=== PATIENT | male | born 1965 | race Caucasian/White ===

== ENCOUNTER 2018-08-23 13:19 | Emergency (ER) | payer MEDICAID ==
--- OUTSIDE RECORDS SUMMARY | 2018-08-23 13:21 | XMS REPORT | Clinical Summary ---
:1965 Author Organization [facility] Address [address] [place] [address] Care Team Providers Name Role Phone Sharpluis Primary Care Provider Unavailable Allergies No Known Allergies Medications Medication Sig Dispensed Refills Start Date End Date Status ALPRAZolam (XANAX) 1 Take 1 mg by 0 Active MG tablet mouth every night as needed for Anxiety. levothyroxine Take 137 mcg by 0 Active (SYNTHROID, mouth Every LEVOTHROID) 137 MCG morning on an tablet empty stomach. atorvastatin (LIPITOR) Take 2 tablets 30 tablet 0 12/16/2017 12/16/2018 Active 40 MG tablet (80 mg total) by mouth daily. lisinopril Take 1 tablet 30 tablet 0 12/16/2017 12/16/2018 Active (PRINIVIL,ZESTRIL) 5 (5 mg total) by MG tablet mouth daily. folic acid (FOLVITE) 1 Take 1 tablet 30 tablet 0 12/16/2017 12/16/2018 Active MG tablet (1 mg total) by mouth daily. aspirin 81 MG EC Take 1 tablet 30 tablet 0 12/16/2017 12/16/2018 Active tablet (81 mg total) by mouth daily. clopidogrel (PLAVIX) Take 1 tablet 30 tablet 0 12/16/2017 12/16/2018 Active 75 mg tablet (75 mg total) by mouth daily. pantoprazole Take 1 tablet 30 tablet 0 12/16/2017 Active (PROTONIX) 40 MG (40 mg total) tablet by mouth daily. nitroglycerin As directed. 90 tablet 0 12/15/2017 12/15/2018 Active (NITROSTAT) 0.4 MG SL tablet thiamine 100 MG tablet Take 1 tablet 30 tablet 0 12/15/2017 12/15/2018 Active (100 mg total) by mouth daily. atorvastatin (LIPITOR) TAKE 1 TABLET 30 tablet 0 03/11/2018 Active 80 MG tablet BY MOUTH EVERY DAY metoprolol (TOPROL-XL) Take 0.5 15 tablet 0 12/16/2017 01/15/2018 25 MG 24 hr tablet tablets (12.5 mg total) by mouth daily for 30 days. Active Problems Problem Noted Date ETOH abuse 12/13/2017 Tobacco abuse 12/13/2017 ST elevation myocardial infarction involving right coronary artery 12/12/2017 Alcoholism /alcohol abuse 12/12/2017 Hypothyroidism 12/12/2017 Chronic anemia 12/12/2017 Anxiety disorder 12/12/2017 Acute pain 12/12/2017 Insomnia 12/12/2017 Cigarette nicotine dependence 12/12/2017 Vitamin deficiency 12/12/2017 Encounters Date Type Specialty Care Team Description 02/26/2018 Refill Cardiology Rod Lerner MD 12/12/2017 - Hospital Encounter Cardiology Odessa Busch ST elevation myocardial infarction involving right coronary artery (HCC) (Primary Dx); 12/15/2017 MD Anastacio Alcoholism /alcohol abuse (HCC); Bacilio Hagen Cigarette nicotine dependence without complication Manuel 12/12/2017 Surgery Odessa Busch L CATH & PCI MD Anastacio after 08/22/2017 Immunizations Name Dates Previously Given Next Due Influenza Three-TIV PF 5+ YR 12/13/2017 Social History Tobacco Use Types Packs/Day Years Used Date Current Every Day Smoker Cigarettes, Cigars 2 38 Smokeless Tobacco: Never Used Tobacco Cessation: Ready to Quit: No Comments: 2 packs per day Alcohol Use Drinks/Week oz/Week Comments Yes 70 Cans of beer 42.0 4-10 cans per day Sex Assigned at Date Recorded Not on file Job Start Date Occupation Industry Not on file Not on file Not on file Travel History Travel Start Travel End No recent travel history available. Last Filed Vital Signs Vital Sign Reading Time Taken Blood Pressure 105/69 12/15/2017 8:14 AM SENIOR ORACLE APPLICATIONS DEVELOPER Pulse 75 12/15/2017 8:14 AM SENIOR ORACLE APPLICATIONS DEVELOPER Temperature 36.9 C (98.4 F) 12/15/2017 8:14 AM SENIOR ORACLE APPLICATIONS DEVELOPER Respiratory Rate 18 12/15/2017 8:14 AM SENIOR ORACLE APPLICATIONS DEVELOPER Oxygen Saturation 99% 12/15/2017 8:14 AM SENIOR ORACLE APPLICATIONS DEVELOPER Inhaled Oxygen Concentration - - Weight 71.4 kg (157 lb 6.4 oz) 12/15/2017 4:55 AM SENIOR ORACLE APPLICATIONS DEVELOPER Height 188 cm (6' 2") 12/12/2017 10:30 AM SENIOR ORACLE APPLICATIONS DEVELOPER Body Mass Index 20.21 12/15/2017 4:55 AM SENIOR ORACLE APPLICATIONS DEVELOPER Plan of Treatment Health Maintenance Due Date Last Done Comments INFLUENZA VACCINE 07/11/2018 12/13/2017 Implants Implanted Type Area Supervisor Color Making Device Shelf Model / Identifier Expiration Serial / Date Lot Synergy Stents-C N/A: [employer]OSTON 06/11/2018 [id number] / Implanted: Qty: 1 on 12/12/2017 by Odessa Busch MD [facility] Coronary SCIENTIFIC / [id number] Procedures Procedure Name Priority Date/Time Associated Comments Diagnosis REPORT OF PROCEDURE - 12/29/2017 1:52 ENDOSCOPY SCAN PM CDT VASCULAR DIAGRAM -SCAN 12/21/2017 3:01 PM CDT RHYTHM STRIP - SCAN 12/16/2017 1:21 PM SENIOR ORACLE APPLICATIONS DEVELOPER VASCULAR DIAGRAM -SCAN 12/16/2017 1:21 PM SENIOR ORACLE APPLICATIONS DEVELOPER ECHOCARDIOGRAM REPORT 12/15/2017 11:50 - SCAN AM SENIOR ORACLE APPLICATIONS DEVELOPER MAGNESIUM Routine 12/15/2017 4:58 Results for this AM SENIOR ORACLE APPLICATIONS DEVELOPER procedure are in the results section. CBC (HEMOGRAM ONLY) Routine 12/15/2017 4:58 Results for this AM SENIOR ORACLE APPLICATIONS DEVELOPER procedure are in the results section. BASIC METABOLIC PANEL Routine 12/15/2017 4:58 Results for this (7) AM SENIOR ORACLE APPLICATIONS DEVELOPER procedure are in the results section. TROPONIN I STAT 12/14/2017 10:27 Results for this PM SENIOR ORACLE APPLICATIONS DEVELOPER procedure are in the results section. 2D ECHO W/ DOPPLER PK 12/14/2017 5:31 Results for this (CW/PW/COLOR) PM SENIOR ORACLE APPLICATIONS DEVELOPER procedure are in the results section. CARDIAC CATH REPORT - 12/14/2017 1:22 SCAN PM SENIOR ORACLE APPLICATIONS DEVELOPER MAGNESIUM Routine 12/14/2017 4:01 Results for this AM SENIOR ORACLE APPLICATIONS DEVELOPER procedure are in the results section. CBC (HEMOGRAM ONLY) Routine 12/14/2017 4:01 Results for this AM SENIOR ORACLE APPLICATIONS DEVELOPER procedure are in the results section. BASIC METABOLIC PANEL Routine 12/14/2017 4:01 Results for this (7) AM SENIOR ORACLE APPLICATIONS DEVELOPER procedure are in the results section. MAGNESIUM Routine 12/13/2017 5:35 Results for this AM SENIOR ORACLE APPLICATIONS DEVELOPER procedure are in the results section. CBC (HEMOGRAM ONLY) Routine 12/13/2017 5:35 Results for this AM SENIOR ORACLE APPLICATIONS DEVELOPER procedure are in the results section. BASIC METABOLIC PANEL Routine 12/13/2017 5:35 Results for this (7) AM SENIOR ORACLE APPLICATIONS DEVELOPER procedure are in the results section. VITAMIN B1 Routine 12/12/2017 4:56 Results for this PM SENIOR ORACLE APPLICATIONS DEVELOPER procedure are in the results section. POCT-ACT Routine 12/12/2017 3:52 Results for this PM SENIOR ORACLE APPLICATIONS DEVELOPER procedure are in the results section. POCT-ACT Routine 12/12/2017 2:45 Results for this PM SENIOR ORACLE APPLICATIONS DEVELOPER procedure are in the results section. POCT-ACT Routine 12/12/2017 1:52 Results for this PM SENIOR ORACLE APPLICATIONS DEVELOPER procedure are in the results section. T4, FREE Routine 12/12/2017 1:30 Results for this PM SENIOR ORACLE APPLICATIONS DEVELOPER procedure are in the results section. TSH/FREE T4 IF Routine 12/12/2017 1:30 Results for this INDICATED PM SENIOR ORACLE APPLICATIONS DEVELOPER procedure are in the results section. CBC W/PLT COUNT & AUTO Routine 12/12/2017 1:27 Results for this DIFFERENTIAL PM SENIOR ORACLE APPLICATIONS DEVELOPER procedure are in the results section. HEMOGLOBIN A1C AP Routine 12/12/2017 1:27 Results for this PM SENIOR ORACLE APPLICATIONS DEVELOPER procedure are in the results section. LIPID PANEL Routine 12/12/2017 1:27 Results for this PM SENIOR ORACLE APPLICATIONS DEVELOPER procedure are in the results section. B-TYPE NATRIURETIC Routine 12/12/2017 1:27 Results for this FACTOR (BNP) PM SENIOR ORACLE APPLICATIONS DEVELOPER procedure are in the results section. CREATINE KINASE (CK), Routine 12/12/2017 1:27 Results for this TOTAL AND MB PM SENIOR ORACLE APPLICATIONS DEVELOPER procedure are in the results section. TROPONIN I Routine 12/12/2017 1:27 Results for this PM SENIOR ORACLE APPLICATIONS DEVELOPER procedure are in the results section. CBC W/PLT COUNT & AUTO Routine 12/12/2017 1:27 Results for this DIFFERENTIAL PM SENIOR ORACLE APPLICATIONS DEVELOPER procedure are in the results section. PHOSPHORUS Routine 12/12/2017 1:27 Results for this PM SENIOR ORACLE APPLICATIONS DEVELOPER procedure are in the results section. MAGNESIUM Routine 12/12/2017 1:27 Results for this PM SENIOR ORACLE APPLICATIONS DEVELOPER procedure are in the results section. COMPREHENSIVE Routine 12/12/2017 1:27 Results for this METABOLIC PANEL PM SENIOR ORACLE APPLICATIONS DEVELOPER procedure are in the results section. POCT-ACT Routine 12/12/2017 11:35 Results for this AM SENIOR ORACLE APPLICATIONS DEVELOPER procedure are in the results section. POCT-ACT Routine 12/12/2017 11:08 Results for this AM SENIOR ORACLE APPLICATIONS DEVELOPER procedure are in the results section. POCT-ACT Routine 12/12/2017 10:54 Results for this AM SENIOR ORACLE APPLICATIONS DEVELOPER procedure are in the results section. L CATH & PCI 12/12/2017 9:50 stemi AM SENIOR ORACLE APPLICATIONS DEVELOPER after 08/22/2017 Results EKG-SCANNED (12/29/2017 1:52 PM CDT) Narrative Performed At VASCULAR DIAGRAM -SCAN (12/21/2017 3:01 PM CDT)Only the most recent of2 resultswithin the time period is included. Narrative Performed At RHYTHM STRIP - SCAN (12/16/2017 1:21 PM SENIOR ORACLE APPLICATIONS DEVELOPER) Narrative Performed At ECHOCARDIOGRAM REPORT - SCAN (12/15/2017 11:50 AM SENIOR ORACLE APPLICATIONS DEVELOPER) Narrative Performed At CBC (Hemogram only) (12/15/2017 4:58 AM SENIOR ORACLE APPLICATIONS DEVELOPER)Only the most recent of3 resultswithin the time period is included. WBC 4.5 3.5 - 10.5 K/L [facility] RBC 4.28 (L) 4.63 - 6.08 M/L [facility] Hemoglobin 12.7 (L) 13.7 - 17.5 GM/DL [facility] Hematocrit 39.2 (L) 40.1 - 51.0 % [facility] MCV 91.6 79.0 - 92.2 fL [facility] MCH 29.7 25.7 - 32.2 pg [facility] MCHC 32.4 32.3 - 36.5 GM/DL [facility] RDW 14.1 11.6 - 14.4 % [facility] Platelets 149 (L) 150 - 450 K/CU MM [facility] MPV 10.2 9.4 - 12.4 fL [facility] nRBC 0 0 - 0 /100 WBC [facility] Specimen Blood Performing Organization Address City/State/Zipcode Phone Number [facility] [address] [place] [address] CENTER Magnesium (12/15/2017 4:58 AM SENIOR ORACLE APPLICATIONS DEVELOPER)Only the most recent of4 resultswithin the time period is included. Magnesium 1.6 1.6 - 2.6 mg/dL [facility] Specimen Blood Performing Organization Address City/[facility]/Zipcode Phone Number [facility] [address] [place] [address] [phone] [place] Basic metabolic panel (12/15/2017 4:58 AM SENIOR ORACLE APPLICATIONS DEVELOPER)Only the most recent of3 resultswithin the time period is included. Sodium 139 136 - 145 meq/L [facility] Potassium 4.1 3.5 - 5.1 meq/L [facility] Chloride 105 98 - 107 meq/L [facility] CO2 25 22 - 29 meq/L [facility] BUN 9 7 - 21 mg/dL [facility] Creatinine 0.75 0.57 - 1.25 mg/dL [facility] Glucose 84 70 - 105 mg/dL [facility] Calcium 9.1 8.4 - 10.2 mg/dL [facility] EGFR 109Comment: ESTIMATED GFR IS mL/min/1.73 sq m [facility] NOT ACCURATE CREATININE [facility] CENTER CLEARANCE IN PREDICTING GLOMERULAR FILTRATION RATE. ESTIMATED GFR IS NOT APPLICABLE FOR DIALYSIS PATIENTS. Specimen Blood Performing Organization Address City/[facility]/Zipcode Phone Number [address] [address] [place] Troponin I (12/14/2017 10:27 PM SENIOR ORACLE APPLICATIONS DEVELOPER)Only the most recent of2 resultswithin the time period is included. Troponin I 0.99 (HH) 0.00 - 0.03 ng/mL [facility] Specimen Blood Narrative Performed At [facility] Troponin I (TnI) levels must be interpreted in the context of the presenting symptoms and the clinical findings. Elevated TnI levels indicate myocardial damage, but are not specific for ischemic heart disease. Elevated TnI levels are seen in patients with other cardiac conditions (including myocarditis and congestive heart failure), and slight TnI elevations occur in patients with other conditions, including sepsis, renal failure, acidosis, acute neurological disease, and persistent tachyarrhythmia. Performing Organization Address City/State/Zipcode Phone Number [facility] [address] [place] [address] [phone] CENTER Transthoracic 2D echo w/ doppler (cw/pw/color) (12/14/2017 5:31 PM SENIOR ORACLE APPLICATIONS DEVELOPER) Ejection Fraction [facility] MK[facility]ON CPA Narrative Performed At Transthoracic Echocardiography Report (TTE) [facility] Demographics Patient Name JOSEPH WEAVER Date of Study 12/14/2017 [id number] GenderMale Visit Number [id number] Unknown [id number] Room Number 1135 Number Date of Birth1965Referring Physician Odessa Busch MD Age52 year(s)Oil Burner Repairer Brenda Regicameron [facility] AnalystAriadna InterpretingGorge Hernadez Physician Procedure Type of Study TTE procedure:2DECHO W DOPPLER(CW/PW/COLOR) (PK) Indications:Acute Chest Pain/ Suspected CAD. Clinical History CAD Hypothyroidism HGB 12.2 HCT 37.6 % Height: 74 inches Weight: 74.84 kg (165 lbs) BSA: 2 m^2 BMI: 21.18 kg/m^2 HR: 74 bpm BP: 122/82 mmHg Summary 1. The following segment(s) appear moderately hypokinetic: base and mid inferoseptum, base, and mid inferior . LVEF by Maria's method of disk assessment is mildly reduced (45-49%) 2. RV chamber size is normal . Global RV systolic function is low normal . 3. Grade 1 diastolic dysfunction (impaired relaxation and low-normal LA pressure). Previous Study No prior exam available for comparison. Signature Findings Left Ventricle The LV endocardium is adequately visualized. Th e left ventricle is chamber size (by vol index) is normal (male - LVED vol - 34-74ml/m2). Mi ld concentric LV hypertrophy. Th e following segment(s) appear moderately hy pokinetic: base and mid inferoseptum, base, and mi d inferior . Gl obal LV systolic function mildly reduced . LV EF by Maria's method of disk assessment is mi ldly reduced (45-49%) . Gr mike 1 diastolic dysfunction (impaired relaxation an d low-normal LA pressure). Left AtriumLA size is normal (16-34 ml/m2) . Right VentricleRV chamber size is normal . Gl obal RV systolic function is low normal . Right Atrium RA size is normal. Aortic Valve Normal AoV structure and function. Mitral Valve Mild MV leaflet thickening. Tr raul mitral regurgitation. Tricuspid ValveNormal TV structure and function. Pulmonic Valve Normal PV structure and function. AortaAortic root size (SInus of Valsalva diameter) is no rmal . PericardiumNo pericardial effusion is visualized. IVC/SVC/PA/PV/PleuralThe estimated RA pressure by IVC dynamics 0-5mmHg . Chambers/Structures Left Atrium LA Volume: 37.4 mlLA Area: 12.43 cm^2 LA Vol. Index: 19 ml/m^2 Left Ventricle LVIDd: 4.18 cm LVIDs: 3.42 cm LV Septum Diastolic: 1.01 cm LV PW Diastolic: 1.01 cmLV FS: 18.2 % LVEDV Maria's:80.34 ml LVESV Maria's:51.29 mlLVEDVI: 40 ml/m^2 LVEF Maria's: 49 %L VESVI: 26 ml/m^2 LVOT Diameter: 2.31 cm Right Atrium RA Vol. (Sngl Plane): 34.42 ml Right Ventricle TAPSE: 1.5 cm Aorta Ao Root S of Albina.: 3.12 cmAscending Aorta: 3.53 cm Doppler/Quantitative Measurements Mitral Valve MV Peak E-Wave: 0.42 m/s MV Peak A-Wave: 0.56 m/s E/A Ratio: 0.75 Peak Gradient: 0.69 mmHg Deceleration Time: 270.3 msec MV Nima. Peak: LVOT Peak Velocity: 0.5 m/sPeak Gradient: 0.98 mmHg Mean Velocity: 0.33 m/s Mean Gradient: 0.53 mmHg LVOT Diameter: 2.31 cmLVOT VTI: 9.08 cm LVOT Area: 4.19 cm^2LVOT SV:38.03 ml LVOT CO: 2.81 l/min LVOT CI: 1.4 l/min/m^2 RVOT RVOT VTI (PW): 9.92 cm Procedure Note Interface, External Ris In - 12/15/2017 11:13 AM SENIOR ORACLE APPLICATIONS DEVELOPER Transthoracic Echocardiography Report (TTE) Demographics Patient Name JOSEPH WEAVER Date of Study 12/14/2017 Gender Male Visit Number [id number] Race Unknown Room Number 1135 Number Date of 1965 Referring Physician Odessa Busch MD Age 52 year(s) Oil Burner Repairer Brenda Peters CS Joint Sealer Negar Interpreting Gorge Hernadez Physician Procedure Type of Study TTE procedure:2DECHO W DOPPLER(CW/PW/COLOR) (PK) Indications:Acute Chest Pain/ Suspected CAD. Clinical History CAD Hypothyroidism HGB 12.2 HCT 37.6 % Height: 74 inches Weight: 74.84 kg (165 lbs) BSA: 2 m^2 BMI: 21.18 kg/m^2 HR: 74 bpm BP: 122/82 mmHg Summary 1. The following segment(s) appear moderately hypokinetic: base and mid inferoseptum, base, and mid inferior . LVEF by Maria's method of disk assessment is mildly reduced (45-49%) 2. RV chamber size is normal . Global RV systolic function is low normal . 3. Grade 1 diastolic dysfunction (impaired relaxation and low-normal LA pressure). Previous Study No prior exam available for comparison. Signature Findings Left Ventricle The LV endocardium is adequately visualized. The left ventricle is chamber size (by vol index) is normal (male - LVED vol - 34-74ml/m2). Mild concentric LV hypertrophy. The following segment(s) appear moderately hypokinetic: base and mid inferoseptum, base, and mid inferior . Global LV systolic function mildly reduced . LVEF by Maria's method of disk assessment is mildly reduced (45-49%) . Grade 1 diastolic dysfunction (impaired relaxation and low-normal LA pressure). Left Atrium LA size is normal (16-34 ml/m2) . Right Ventricle RV chamber size is normal . Global RV systolic function is low normal . Right Atrium RA size is normal. Aortic Valve Normal AoV structure and function. Mitral Valve Mild MV leaflet thickening. Trace mitral regurgitation. Tricuspid Valve Normal TV structure and function. Pulmonic Valve Normal PV structure and function. Aorta Aortic root size (SInus of Valsalva diameter) is normal . Pericardium No pericardial effusion is visualized. IVC/SVC/PA/PV/Pleural The estimated RA pressure by IVC dynamics 0-5mmHg . Chambers/Structures Left Atrium LA Volume: 37.4 ml LA Area: 12.43 cm^2 LA Vol. Index: 19 ml/m^2 Left Ventricle LVIDd: 4.18 cm LVIDs: 3.42 cm LV Septum Diastolic: 1.01 cm LV PW Diastolic: 1.01 cm LV FS: 18.2 % LVEDV Maria's:80.34 ml LVESV Maria's:51.29 ml LVEDVI: 40 ml/m^2 LVEF Maria's: 49 % LVESVI: 26 ml/m^2 LVOT Diameter: 2.31 cm Right Atrium RA Vol. (Sngl Plane): 34.42 ml Right Ventricle TAPSE: 1.5 cm Aorta Ao Root S of Albina.: 3.12 cm Ascending Aorta: 3.53 cm Doppler/Quantitative Measurements Mitral Valve MV Peak E-Wave: 0.42 m/s MV Peak A-Wave: 0.56 m/s E/A Ratio: 0.75 Peak Gradient: 0.69 mmHg Deceleration Time: 270.3 msec MV Nima. Peak: LVOT Peak Velocity: 0.5 m/s Peak Gradient: 0.98 mmHg Mean Velocity: 0.33 m/s Mean Gradient: 0.53 mmHg LVOT Diameter: 2.31 cm LVOT VTI: 9.08 cm LVOT Area: 4.19 cm^2 LVOT SV:38.03 ml LVOT CO: 2.81 l/min LVOT CI: 1.4 l/min/m^2 RVOT RVOT VTI (PW): 9.92 cm Performing Organization Address [facility] Phone Number [facility] C[facility] CARDIAC CATH REPORT - SCAN (12/14/2017 1:22 PM SENIOR ORACLE APPLICATIONS DEVELOPER) Narrative Performed At Vitamin B1 (12/12/2017 4:56 PM SENIOR ORACLE APPLICATIONS DEVELOPER) Vitamin B1,LCMSMS 19 8 - 30 nmol/L [employer] [facility] Comment: INCORPORATED Vitamin supplementation within 24 hours prior to blood draw may affect the accuracy of results. This test was developed and its analytical performance characteristics have been determined by [employer]. It has not been cleared or approved by FDA. This assay has been validated pursuant to the CLIA regulations and is used for clinical purposes. Specimen Blood - Line, Venous Narrative Performed At Performing Lab [employer] [facility] *SPL [employer] [facility], [address] [place] [address] Ameena Aparicio MD, PhD Performing Organization Address City/[facility] Phone Number [facility] [place], [place] [address] INCORPORATED [id number] [facility] POC ACTIVATED CLOTTING TIME (12/12/2017 3:52 PM SENIOR ORACLE APPLICATIONS DEVELOPER)Only the most recent of6 resultswithin the time period is included. Activated Clotting Time 125Comment: TESTED AT [facility] [address] [facility] [address] Specimen Blood Performing Organization Address City/State/Zipcode Phone Number [address] [address] [phone] CENTER TSH/T4 if indicated (12/12/2017 1:30 PM SENIOR ORACLE APPLICATIONS DEVELOPER) TSH 5.53 (H) 0.35 - 4.94 uIU/mL [facility] Specimen Blood Performing Organization Address City/[facility]/Zipcode Phone Number [address] [address] [place] T4, free (12/12/2017 1:30 PM SENIOR ORACLE APPLICATIONS DEVELOPER) Free T4 0.94 0.70 - 1.48 ng/dL [facility] Specimen Blood Performing Organization Address City/[facility] Phone Number [address] [address] [place] CBC with platelet count + automated diff (12/12/2017 1:27 PM SENIOR ORACLE APPLICATIONS DEVELOPER) WBC 7.5 3.5 - 10.5 K/L [facility] RBC 4.27 (L) 4.63 - 6.08 M/L [facility] Hemoglobin 12.7 (L) 13.7 - 17.5 GM/DL [facility] Hematocrit 38.3 (L) 40.1 - 51.0 % [facility] MCV 89.7 79.0 - 92.2 fL [facility] MCH 29.7 25.7 - 32.2 pg [facility] MCHC 33.2 32.3 - 36.5 GM/DL [facility] RDW 13.9 11.6 - 14.4 % [facility] Platelets 172 150 - 450 K/CU MM [facility] MPV 9.5 9.4 - 12.4 fL [facility] nRBC 0 0 - 0 /100 WBC [facility] % Neutros 81 % [facility] % Lymphs 10 % [facility] % Monos 8 % [facility] % Eos 0 % [facility] % Baso 1 % [facility] # Neutros 6.06 (H) 1.78 - 5.38 K/L [facility] # Lymphs 0.78 (L) 1.32 - 3.57 K/L [facility] # Monos 0.60 0.30 - 0.82 K/L [facility] # Eos 0.00 (L) 0.04 - 0.54 K/L [facility] # Baso 0.04 0.01 - 0.08 K/L [facility] Immature Granulocytes-Relative 0 0 - 1 % [facility] Specimen Blood Performing Organization Address City/[facility]/Zipcode Phone Number [address] [address] CENTER Phosphorus (12/12/2017 1:27 PM SENIOR ORACLE APPLICATIONS DEVELOPER) Phosphorus 3.4 2.3 - 4.7 mg/dL [facility] Specimen Blood Performing Organization Address City/State/Zipcode Phone Number [address] [address] [phone] [place] B-type Natriuretic Factor (BNP) (12/12/2017 1:27 PM SENIOR ORACLE APPLICATIONS DEVELOPER) BNP 25 0 - 100 pg/mL [facility] Specimen Blood Performing Organization Address City/[facility]/Zipcode Phone Number [address] [address] [phone] CENTER Hemoglobin A1c (12/12/2017 1:27 PM SENIOR ORACLE APPLICATIONS DEVELOPER) Hemoglobin A1C 5.3 4.3 - 6.1 % [facility] Specimen Blood Performing Organization Address City/[facility]/Zipcode Phone Number [address] [address] [place] Creatine Kinase (CK), Total and MB (12/12/2017 1:27 PM SENIOR ORACLE APPLICATIONS DEVELOPER) Total CK 336 (H) 29 - 200 U/L [facility] CK-MB 21.4 (H) 0.0 - 6.6 ng/mL [facility] MB Relative Index 6.4 % [facility] Specimen Blood Narrative Performed At CK-MB Reference Range: [facility] <6.7Normal 6.7-10.0Borderline >10.0 Abnormal Performing Organization Address [facility] Phone Number [address] [address] [place] Lipid panel (12/12/2017 1:27 PM SENIOR [employer]LE APPLICATIONS DEVELOPER) Triglycerides 29 mg/dL [facility] Cholesterol 148 mg/dL [facility] HDL 86 mg/dL [facility] LDL Calculated 56 mg/dL [facility] Specimen Blood Narrative Performed At [facility] Triglyceride Reference Range: Low Risk <150 [id number] High Risk 200-499 Very High Risk>=500 Cholesterol Reference Range: Low Risk <200 Aocpcckxjv448-286 High Risk>240 HDL Cholesterol Reference Range: Low Risk >=60 High Risk <40 LDL Cholesterol Reference Range: Optimal<100 Near Qcpenef645-988 Iiwymfwdem698-536 Wbdm721-735 Very High >=190 Performing Organization Address [facility] Phone Number [address] [address] [place] Comprehensive metabolic panel (12/12/2017 1:27 PM SENIOR ORACLE APPLICATIONS DEVELOPER) Protein, Total 6.5 6.0 - 8.3 gm/dL [facility] Albumin 3.8 3.5 - 5.0 g/dL [facility] Alkaline Phosphatase 72 40 - 150 U/L [facility] Total Bilirubin 1.1 0.2 - 1.2 mg/dL [facility] Sodium 137 136 - 145 meq/L [facility] Potassium 4.5 3.5 - 5.1 meq/L [facility] Chloride 103 98 - 107 meq/L [facility] CO2 23 22 - 29 meq/L [facility] BUN 12 7 - 21 mg/dL [facility] Creatinine 0.78 0.57 - 1.25 mg/dL [facility] Glucose 79 70 - 105 mg/dL [facility] Calcium 8.5 8.4 - 10.2 mg/dL [facility] AST 55 (H) 5 - 34 U/L [facility] ALT 18 6 - 55 U/L [facility] EGFR 104Comment: ESTIMATED mL/min/1.73 sq m [facility] GFR IS NOT ACCURATE [facility] CREATININE CLEARANCE IN PREDICTING GLOMERULAR FILTRATION RATE. ESTIMATED GFR IS NOT APPLICABLE FOR DIALYSIS PATIENTS. Specimen Blood Performing Organization Address City/State/Zipcode Phone Number [facility] [address] [place] [address] [phone] CENTER after 08/22/2017 Insurance Payer Benefit Plan / Group Subscriber ID Type Phone Address [place] MED[place]ID [place] xxxxxxxxx
--- OUTSIDE RECORDS SUMMARY | 2018-08-23 13:22 | XMS REPORT ---
:1965 [facility] Address [address] [place] [address] Care Team Providers Name Role Phone GERI LAWTON Unavailable Unavailable Problems This patient has no known problems. Allergies, Adverse Reactions, Alerts This patient has no known allergies or adverse reactions. Medications This patient has no known medications. Results Test Description Test Time Test Comments Text Results Atomic Results Result Comments MAGNESIUM 2017-12-15 06:32:00 Test Item Value Reference Range Comments MAGNESIUM (BEAKER) (test btwk=220) 1.6 mg/dL 1.6-2.6 BASIC METABOLIC [id number] 06:32:00 Test Item Value Reference Range Comments SODIUM (BEAKER) (test 139 meq/L 136-145 lnhj=477) POTASSIUM (BEAKER) (test 4.1 meq/L 3.5-5.1 rmfh=319) CHLORIDE (BEAKER) (test 105 meq/L 98-107 ggeb=681) CO2 (BEAKER) (test 25 meq/L 22-29 euqd=215) BLOOD UREA NITROGEN 9 mg/dL 7-21 (BEAKER) (test pdwc=205) CREATININE (BEAKER) (test 0.75 mg/dL 0.57-1.25 sdku=918) GLUCOSE RANDOM (BEAKER) 84 mg/dL 70-105 (test bhgu=140) CALCIUM (BEAKER) (test 9.1 mg/dL 8.4-10.2 ogzf=376) EGFR (BEAKER) (test 109 mL/min/1.73 sq m ESTIMATED GFR IS NOT gtra=1542) ACCURATE CREATININE CLEARANCE IN PREDICTING GLOMERULAR FILTRATION RATE. ESTIMATED GFR IS NOT APPLICABLE FOR DIALYSIS PATIENTS. CBC (HEMOGRAM ONLY)2017-12-15 06:08:00 Test Item Value Reference Range Comments WHITE BLOOD CELL COUNT (BEAKER) (test cffp=643) 4.5 K/ L 3.5-10.5 RED BLOOD CELL COUNT (BEAKER) (test inra=690) 4.28 M/ L 4.63-6.08 HEMOGLOBIN (BEAKER) (test olof=331) 12.7 GM/DL 13.7-17.5 HEMATOCRIT (BEAKER) (test tlfb=733) 39.2 % 40.1-51.0 MEAN CORPUSCULAR VOLUME (BEAKER) (test orma=475) 91.6 fL 79.0-92.2 MEAN CORPUSCULAR HEMOGLOBIN (BEAKER) (test 29.7 pg 25.7-32.2 qhmm=573) MEAN CORPUSCULAR HEMOGLOBIN CONC (BEAKER) (test 32.4 GM/DL 32.3-36.5 kkbi=528) RED CELL DISTRIBUTION WIDTH (BEAKER) (test 14.1 % 11.6-14.4 ljvw=843) PLATELET COUNT (BEAKER) (test lnfc=896) 149 K/CU MM 150-450 MEAN PLATELET VOLUME (BEAKER) (test twds=609) 10.2 fL 9.4-12.4 NUCLEATED RED BLOOD CELLS (BEAKER) (test 0 /100 WBC 0-0 pfkb=633) TROPONIN [id number] 23:05:00 Test Item Value Reference Range Comments TROPONIN I (BEAKER) (test ppdw=634) 0.99 ng/mL 0.00-0.03 Troponin I (TnI) levels must be interpreted [...] failure, acidosis, acute neurological disease, and persistent tachyarrhythmia.[id number] 05:14:00 Test Item Value Reference Range Comments MAGNESIUM (BEAKER) (test zdnz=902) 1.7 mg/dL 1.6-2.6 BASIC METABOLIC [id number] 05:14:00 Test Item Value Reference Range Comments SODIUM (BEAKER) (test 137 meq/L 136-145 ojui=484) POTASSIUM (BEAKER) (test 4.0 meq/L 3.5-5.1 tplr=321) CHLORIDE (BEAKER) (test 104 meq/L 98-107 kfgr=117) CO2 (BEAKER) (test 26 meq/L 22-29 rrjs=363) BLOOD UREA NITROGEN 7 mg/dL 7-21 (BEAKER) (test rgjj=926) CREATININE (BEAKER) (test 0.86 mg/dL 0.57-1.25 cxjj=083) GLUCOSE RANDOM (BEAKER) 84 mg/dL 70-105 (test jptk=785) CALCIUM (BEAKER) (test 9.0 mg/dL 8.4-10.2 wkdp=352) EGFR (BEAKER) (test 93 mL/min/1.73 sq m ESTIMATED GFR IS NOT qyvp=0496) ACCURATE CREATININE CLEARANCE IN PREDICTING GLOMERULAR FILTRATION RATE. ESTIMATED GFR IS NOT APPLICABLE FOR DIALYSIS PATIENTS. CBC (HEMOGRAM ONLY)2017-12-14 04:38:00 Test Item Value Reference Range Comments WHITE BLOOD CELL COUNT (BEAKER) (test clww=797) 3.7 K/ L 3.5-10.5 RED BLOOD CELL COUNT (BEAKER) (test qows=544) 4.13 M/ L 4.63-6.08 HEMOGLOBIN (BEAKER) (test hmnn=621) 12.2 GM/DL 13.7-17.5 HEMATOCRIT (BEAKER) (test plik=628) 37.6 % 40.1-51.0 MEAN CORPUSCULAR VOLUME (BEAKER) (test komz=287) 91.0 fL 79.0-92.2 MEAN CORPUSCULAR HEMOGLOBIN (BEAKER) (test 29.5 pg 25.7-32.2 ztjv=014) MEAN CORPUSCULAR HEMOGLOBIN CONC (BEAKER) (test 32.4 GM/DL 32.3-36.5 nojs=060) RED CELL DISTRIBUTION WIDTH (BEAKER) (test 13.9 % 11.6-14.4 uiin=898) PLATELET COUNT (BEAKER) (test stdd=347) 131 K/CU MM 150-450 MEAN PLATELET VOLUME (BEAKER) (test vbvg=083) 10.1 fL 9.4-12.4 NUCLEATED RED BLOOD CELLS (BEAKER) (test 0 /100 WBC 0-0 sdnx=603) [id number] 09:35:00 Test Item Value Reference Range Comments ACTIVATED CLOTTING TIME [address] [facility] [address] (BEAKER) (test mtfe=314) [place] [address] [id number] 09:35:00 Test Item Value Reference Range Comments ACTIVATED CLOTTING TIME 246 sec TESTED AT [place] [id number] [address] (BEAKER) (test hunw=288) [place] [address] [id number] 08:47:00 Test Item Value Reference Range Comments ACTIVATED CLOTTING TIME 114 sec TESTED AT [place] [address] [address] (BEAKER) (test tamk=832) [place] [address] [id number] 06:45:00 Test Item Value Reference Range Comments MAGNESIUM (BEAKER) (test bhww=484) 1.9 mg/dL 1.6-2.6 BASIC METABOLIC [id number] 06:45:00 Test Item Value Reference Range Comments SODIUM (BEAKER) (test 139 meq/L 136-145 whlp=524) POTASSIUM (BEAKER) (test 3.9 meq/L 3.5-5.1 uqiw=497) CHLORIDE (BEAKER) (test 105 meq/L 98-107 riaz=834) CO2 (BEAKER) (test 25 meq/L 22-29 zygv=573) BLOOD UREA NITROGEN 11 mg/dL 7-21 (BEAKER) (test wqxk=765) CREATININE (BEAKER) (test 0.77 mg/dL 0.57-1.25 yaow=916) GLUCOSE RANDOM (BEAKER) 84 mg/dL 70-105 (test wihi=986) CALCIUM (BEAKER) (test 8.4 mg/dL 8.4-10.2 swzm=072) EGFR (BEAKER) (test 105 mL/min/1.73 sq m ESTIMATED GFR IS NOT vwub=1686) ACCURATE CREATININE CLEARANCE IN PREDICTING GLOMERULAR FILTRATION RATE. ESTIMATED GFR IS NOT APPLICABLE FOR DIALYSIS PATIENTS. CBC (HEMOGRAM ONLY)2017-12-13 05:55:00 Test Item Value Reference Range Comments WHITE BLOOD CELL COUNT (BEAKER) (test ldqb=908) 4.4 K/ L 3.5-10.5 RED BLOOD CELL COUNT (BEAKER) (test esnk=875) 4.10 M/ L 4.63-6.08 HEMOGLOBIN (BEAKER) (test uqee=966) 12.2 GM/DL 13.7-17.5 HEMATOCRIT (BEAKER) (test rflh=587) 37.4 % 40.1-51.0 MEAN CORPUSCULAR VOLUME (BEAKER) (test iptd=065) 91.2 fL 79.0-92.2 MEAN CORPUSCULAR HEMOGLOBIN (BEAKER) (test 29.8 pg 25.7-32.2 xdsz=371) MEAN CORPUSCULAR HEMOGLOBIN CONC (BEAKER) (test 32.6 GM/DL 32.3-36.5 yyju=620) RED CELL DISTRIBUTION WIDTH (BEAKER) (test 14.0 % 11.6-14.4 skdw=521) PLATELET COUNT (BEAKER) (test abbx=405) 128 K/CU MM 150-450 MEAN PLATELET VOLUME (BEAKER) (test mfkm=471) 9.5 fL 9.4-12.4 NUCLEATED RED BLOOD CELLS (BEAKER) (test 0 /100 WBC 0-0 dzaj=393) HEMOGLOBIN [id number] 23:29:00 Test Item Value Reference Range Comments HEMOGLOBIN A1C (BEAKER) (test emwt=126) 5.3 % 4.3-6.1 [id number] 15:58:00 Test Item Value Reference Range Comments ACTIVATED CLOTTING TIME 125 sec TESTED AT [address] ([facility]) (test uatj=374) [place] [id number] T4, [id number] 14:56:00 Test Item Value Reference Range Comments FREE T4 (BEAKER) (test ofez=100) 0.94 ng/dL 0.70-1.48 [id number] 14:50:00 Test Item Value Reference Range Comments ACTIVATED CLOTTING TIME 136 sec TESTED AT [place] [address] [address] (BEAKER) (test dogf=751) [place] [address] [id number] 14:25:00 Test Item Value Reference Range Comments ACTIVATED CLOTTING TIME 164 sec TESTED AT [address] ([facility]) (test ylep=765) [place] [id number] TSH/FREE T4 IF [id number] 14:25:00 Test Item Value Reference Range Comments THYROID STIMULATING HORMONE (BEAKER) (test 5.53 uIU/mL 0.35-4.94 rvyx=354) TROPONIN [id number] 14:09:00 Test Item Value Reference Range Comments TROPONIN I (BEAKER) (test tkms=917) 32.04 ng/mL 0.00-0.03 Troponin I (TnI) levels must be interpreted [...] failure, acidosis, acute neurological disease, and persistent tachyarrhythmia.CBC W/PLT COUNT & AUTO [id number] 14:07:00 Test Item Value Reference Range Comments WHITE BLOOD CELL COUNT (BEAKER) (test gucx=172) 7.5 K/ L 3.5-10.5 RED BLOOD CELL COUNT (BEAKER) (test wrph=353) 4.27 M/ L 4.63-6.08 HEMOGLOBIN (BEAKER) (test qgey=983) 12.7 GM/DL 13.7-17.5 HEMATOCRIT (BEAKER) (test znbd=352) 38.3 % 40.1-51.0 MEAN CORPUSCULAR VOLUME (BEAKER) (test zfvx=498) 89.7 fL 79.0-92.2 MEAN CORPUSCULAR HEMOGLOBIN (BEAKER) (test 29.7 pg 25.7-32.2 ofyr=044) MEAN CORPUSCULAR HEMOGLOBIN CONC (BEAKER) (test 33.2 GM/DL 32.3-36.5 lvvc=289) RED CELL DISTRIBUTION WIDTH (BEAKER) (test 13.9 % 11.6-14.4 xdgn=828) PLATELET COUNT (BEAKER) (test rhld=554) 172 K/CU MM 150-450 MEAN PLATELET VOLUME (BEAKER) (test sfan=936) 9.5 fL 9.4-12.4 NUCLEATED RED BLOOD CELLS (BEAKER) (test 0 /100 WBC 0-0 lpzb=134) NEUTROPHILS RELATIVE PERCENT (BEAKER) (test 81 % mmfa=390) LYMPHOCYTES RELATIVE PERCENT (BEAKER) (test 10 % kxbf=844) MONOCYTES RELATIVE PERCENT (BEAKER) (test 8 % qqop=236) EOSINOPHILS RELATIVE PERCENT (BEAKER) (test 0 % aehg=215) BASOPHILS RELATIVE PERCENT (BEAKER) (test 1 % gjdk=797) NEUTROPHILS ABSOLUTE COUNT (BEAKER) (test 6.06 K/ L 1.78-5.38 ejly=074) LYMPHOCYTES ABSOLUTE COUNT (BEAKER) (test 0.78 K/ L 1.32-3.57 cneq=142) MONOCYTES ABSOLUTE COUNT (BEAKER) (test 0.60 K/ L 0.30-0.82 qiuk=011) EOSINOPHILS ABSOLUTE COUNT (BEAKER) (test 0.00 K/ L 0.04-0.54 nngw=299) BASOPHILS ABSOLUTE COUNT (BEAKER) (test 0.04 K/ L 0.01-0.08 wurm=480) IMMATURE GRANULOCYTES-RELATIVE PERCENT (BEAKER) 0 % 0-1 (test uhxf=2407) CREATINE KINASE (CK), TOTAL AND [id number] 14:06:00 Test Item Value Reference Range Comments CREATINE KINASE TOTAL (BEAKER) (test yxyq=033) 336 U/L 29-200 CREATINE KINASE-MB (BEAKER) (test wwrg=412) 21.4 ng/mL 0.0-6.6 CREATINE KINASE-MB INDEX (BEAKER) (test vhaa=930) 6.4 % CK-MB Reference Range:<6.7 Normal6.7-10.0 Borderline>10.0 AbnormalB-TYPE NATRIURETIC FACTOR (BNP)2017-12-12 14:05:00 Test Item Value Reference Range Comments B-TYPE NATRIURETIC PEPTIDE (BEAKER) (test oovw=536) 25 pg/mL 0-100 [id number] 13:59:00 Test Item Value Reference Range Comments PHOSPHORUS (BEAKER) (test rtno=479) 3.4 mg/dL 2.3-4.7 [id number] 13:59:00 Test Item Value Reference Range Comments MAGNESIUM (BEAKER) (test xywr=943) 1.9 mg/dL 1.6-2.6 COMPREHENSIVE METABOLIC [id number] 13:59:00 Test Item Value Reference Range Comments TOTAL PROTEIN (BEAKER) 6.5 gm/dL 6.0-8.3 (test cgpr=127) ALBUMIN (BEAKER) (test 3.8 g/dL 3.5-5.0 fueg=3099) ALKALINE PHOSPHATASE 72 U/L 40-150 (BEAKER) (test nfef=372) BILIRUBIN TOTAL (BEAKER) 1.1 mg/dL 0.2-1.2 (test yorq=448) SODIUM (BEAKER) (test 137 meq/L 136-145 ldad=649) POTASSIUM (BEAKER) (test 4.5 meq/L 3.5-5.1 ncue=149) CHLORIDE (BEAKER) (test 103 meq/L 98-107 iqvv=773) CO2 (BEAKER) (test 23 meq/L 22-29 zlkt=367) BLOOD UREA NITROGEN 12 mg/dL 7-21 (BEAKER) (test suvb=568) CREATININE (BEAKER) (test 0.78 mg/dL 0.57-1.25 xcai=107) GLUCOSE RANDOM (BEAKER) 79 mg/dL 70-105 (test rifj=593) CALCIUM (BEAKER) (test 8.5 mg/dL 8.4-10.2 cdzp=004) AST (SGOT) (BEAKER) (test 55 U/L 5-34 pffv=619) ALT (SGPT) (BEAKER) (test 18 U/L 6-55 qgjk=051) EGFR (BEAKER) (test 104 mL/min/1.73 sq ESTIMATED GFR IS NOT efyp=1570) m ACCURATE CREATININE CLEARANCE IN PREDICTING GLOMERULAR FILTRATION RATE. ESTIMATED GFR IS NOT APPLICABLE FOR DIALYSIS PATIENTS. LIPID [id number] 13:59:00 Test Item Value Reference Range Comments TRIGLYCERIDES (BEAKER) (test sdgt=933) 29 mg/dL CHOLESTEROL (BEAKER) (test eheh=823) 148 mg/dL HDL CHOLESTEROL (BEAKER) (test yzcn=627) 86 mg/dL LDL CHOLESTEROL CALCULATED (BEAKER) (test 56 mg/dL hwrk=388) Triglyceride Reference Range: Low Risk <150 Borderline 150- 199 High Risk 200-499 Very High Risk >=500Cholesterol Reference Range: Low Risk <200 Borderline 200-239 High Risk > 240HDL Cholesterol Reference Range: Low Risk >=60 High Risk <40LDL Cholesterol Reference Range: Optimal <100 Near Optimal 100-129 Borderline 130-159 High 160-189 Very High >=190
[2018-08-23 14:26] LABS: Urine Glucose NEGATIVE (NEG); Urine Specific Gravity <1.005 (1.005-1.030)
[2018-08-23 14:27] LABS: Urine Blood NEGATIVE (NEG); Urine Protein NEGATIVE (NEG)
[2018-08-23] MEDS ORDERED: TETANUS & DIPHTHERIA TOX,ADULT 0.5 ML VIAL ONE (14:42)
--- NOTE | 2018-08-23 14:45 | RAD REPORT ---
EXAM DESCRIPTION: RAD - Chest Single View - 08/23/2018 2:30 pm CLINICAL HISTORY: CHEST PAIN Chest pain. COMPARISON: Chest Single View dated 12/12/2017; CHEST SINGLE VIEW dated 07/22/2015; CHEST PA AND LAT 2 VIEW dated 12/13/2010 FINDINGS: Portable technique limits examination quality. The lungs are grossly clear. The heart is normal in size. No displaced fractures. IMPRESSION: No acute intrathoracic process suspected.
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
--- NOTE | 2018-08-23 14:48 | EDPHYS ---
Physician Documentation [facility] Name: Jewel Cespedes Age: 52 yrs Sex: Male : 1965 Arrival Date: 08/23/2018 Time: 13:25 Bed 30 Private MD: ED Physician Rodolfo Haynes HPI: 08/23 14:12 This 52 yrs old Male presents to ER via EMS with complaints of Head gia Injury-Adult. 14:12 The patient or guardian reports abrasion, injury, pain, swelling, tenderness. The gia complaints affect the left cheek. Context of injury: The problem was sustained on a street or driveway. Onset: The symptoms/episode began/occurred just prior to arrival. Associated signs and symptoms: The patient has no apparent associated signs or symptoms. Severity of symptoms: At their worst the symptoms were mild, in the emergency department the symptoms are unchanged. The patient has not experienced similar symptoms in the past. Historical: - Allergies: 13:33 NKA; kr2 - Home Meds: 13:33 levothyroxine oral [Active]; Plavix Oral [Active]; Hydrochlorothiazide Oral [Active]; kr2 Aspirin EC Oral [Active]; trazodone Oral [Active]; Metoprolol Tartrate Oral [Active]; - PMHx: 13:33 Anxiety; Hypothyroidism; Hypertension; Myocardial infarction; kr2 - Immunization history:: Adult Immunizations unknown. - Social history:: Smoking status: Patient uses tobacco products, smokes two packs cigarettes per day. Patient uses alcohol, on a daily basis. - Immunization history: Last tetanus immunization: unknown. - Ebola Screening: : No symptoms or risks identified at this time. - Family history:: not pertinent. ROS: 14:12 Constitutional: Negative for fever, chills, and weight loss, Eyes: Negative for injury, gia pain, redness, and discharge, ENT: Negative for injury, pain, and discharge, Neck: Negative for injury, pain, and swelling, Cardiovascular: Negative for chest pain, palpitations, and edema, Respiratory: Negative for shortness of breath, cough, wheezing, and pleuritic chest pain, Abdomen/GI: Negative for abdominal pain, nausea, vomiting, diarrhea, and constipation, Back: Negative for injury and pain, : Negative for injury, bleeding, discharge, and swelling, MS/Extremity: Negative for injury and deformity, Neuro: Negative for headache, weakness, numbness, tingling, and seizure, Psych: Negative for depression, anxiety, suicide ideation, homicidal ideation, and hallucinations, Allergy/Immunology: Negative for hives, rash, and allergies, Endocrine: Negative for neck swelling, polydipsia, polyuria, polyphagia, and marked weight changes, Hematologic/Lymphatic: Negative for swollen nodes, abnormal bleeding, and unusual bruising. 14:12 Skin: Positive for abrasion(s), swelling, of the left cheek. Exam: 14:12 Constitutional: This is a well developed, well nourished patient who is awake, alert, gia and in no acute distress. Head/Face: Normocephalic, atraumatic. Eyes: Pupils equal round and reactive to light, extra-ocular motions intact. Lids and lashes normal. Conjunctiva and sclera are non-icteric and not injected. Cornea within normal limits. Periorbital areas with no swelling, redness, or edema. ENT: Nares patent. No nasal discharge, no septal abnormalities noted. Tympanic membranes are normal and external auditory canals are clear. Oropharynx with no redness, swelling, or masses, exudates, or evidence of obstruction, uvula midline. Mucous membranes moist. Neck: Trachea midline, no thyromegaly or masses palpated, and no cervical lymphadenopathy. Supple, full range of motion without nuchal rigidity, or vertebral point tenderness. No Meningismus. Chest/axilla: Normal chest wall appearance and motion. Nontender with no deformity. No lesions are appreciated. Cardiovascular: Regular rate and rhythm with a normal S1 and S2. No gallops, murmurs, or rubs. Normal PMI, no JVD. No pulse deficits. Respiratory: Lungs have equal breath sounds bilaterally, clear to auscultation and percussion. No rales, rhonchi or wheezes noted. No increased work of breathing, no retractions or nasal flaring. Abdomen/GI: Soft, non-tender, with normal bowel sounds. No distension or tympany. No guarding or rebound. No evidence of tenderness throughout. Back: No spinal tenderness. No costovertebral tenderness. Full range of motion. MS/ Extremity: Pulses equal, no cyanosis. Neurovascular intact. Full, normal range of motion. Neuro: Awake and alert, GCS 15, oriented to person, place, time, and situation. Cranial nerves II-XII grossly intact. Motor strength 5/5 in all extremities. Sensory grossly intact. Cerebellar exam normal. Normal gait. Psych: Awake, alert, with orientation to person, place and time. Behavior, mood, and affect are within normal limits. 14:12 Skin: injury, abrasion(s), contusion(s), that are superficial, of the left cheek. Vital Signs: 13:34 BP 125 / 94; Pulse 78; Resp 20; Temp 97.9; Pulse Ox 95% on R/A; Weight 88.45 kg; Height kr2 6 ft. 2 in. (187.96 cm); Pain 0/10; 14:45 BP 111 / 85; Pulse 75; Resp 20; Pulse Ox 97% on 2 lpm NC; Pain 0/10; kr2 13:34 Body Mass Index 25.04 (88.45 kg, 187.96 cm) kr2 [place] Coma Score: 13:26 Eye Response: spontaneous(4). Verbal Response: oriented(5). Motor Response: obeys kr2 commands(6). Total: 15. 13:38 Eye Response: spontaneous(4). Verbal Response: oriented(5). Motor Response: obeys kr2 commands(6). Total: 15. 14:12 Eye Response: spontaneous(4). Verbal Response: oriented(5). Motor Response: obeys gia commands(6). Total: 15. Trauma Score (Adult): 13:38 Eye Response: spontaneous(1); Verbal Response: oriented(1); Motor Response: obeys kr2 commands(2); Systolic BP: > 89 mm Hg(4); Respiratory Rate: 10 to 29 per min(4); [place] Score: 15; Trauma Score: 12 MDM: 13:38 Patient medically screened. [facility] 14:15 Data reviewed: vital signs, nurses notes, radiologic studies, CT scan, plain films. [facility] 08/23 14:13 Order name: Urine Dipstick--Ancillary (enter results); Complete Time: 14:45 08/23 14:03 Order name: Chest Single View XRAY; Complete Time: 15:20 [facility] 08/23 14:03 Order name: CT Head C Spine; Complete Time: 15:20 [facility] 08/23 14:03 Order name: CT Facial Bones W/O Con; Complete Time: 15:20 gia 08/23 14:11 Order name: Wound Care: neosporin; Complete Time: 14:44 [facility] Administered Medications: 14:44 Drug: Tetanus-Diphtheria Toxoid Adult 0.5 ml {Child Support Officer: [employer]. Exp: kr2 06/29/2020. Lot #: [id number]. } Route: IM; Site: left deltoid; 15:56 Follow up: Response: No adverse reaction kr2 15:56 Drug: Augmentin 875 mg Route: PO; kr2 16:03 Follow up: Response: Medication administered at discharge. kr2 Disposition: 08/23/18 14:47 Discharged to Home. Impression: Superficial injury of head, Contusion of unspecified part of head - left cheek, Abrasion of other part of head - left cheek, Acute sinusitis. - Condition is Stable. - Discharge Instructions: Contusion, Facial or Scalp Contusion, Head Injury, Adult, Sinusitis, Adult, Sinusitis, Adult, [id number], Contusion, [id number]-[id number], Head Injury, Adult, Iyax-cn-[id number], Facial or Scalp Contusion, [id number]-[id number]. - Prescriptions for Augmentin 875- 125 mg Oral Tablet - take 1 tablet by ORAL route every 12 hours for 10 days; 20 tablet. - Medication Reconciliation Form, Thank You Letter, Antibiotic Education, Prescription Opioid Use form. - Follow up: Private Physician; When: 2 - 3 days; Reason: Recheck today's complaints, Continuance of care, Re-evaluation by your physician. - Problem is new. - Symptoms have improved. Signatures: Dispatcher [employer] EDPA Rodolfo Haynes MD MD cha Reaves, Karey RN RN kr2 Corrections: (The following items were deleted from the chart) 15:23 14:47 08/23/2018 14:47 Discharged to Home. Impression: Superficial injury of head; gia Contusion of unspecified part of head - left cheek; Abrasion of other part of head - left cheek. Condition is Stable. Discharge Instructions: Contusion, Facial or Scalp Contusion, Head Injury, Adult, Contusion, Ilqz-ej-Duzg, Head Injury, Adult, Pnuz-nf-Dzxt, Facial or Scalp Contusion, Zffl-qf-Vftu. Forms are Medication Reconciliation Form, Thank You Letter, Antibiotic Education, Prescription Opioid Use. Follow up: Private Physician; When: 2 - 3 days; Reason: Recheck today's complaints, Continuance of care, Re-evaluation by your physician. Problem is new. Symptoms have improved. [facility] 16:03 15:23 08/23/2018 14:47 Discharged to Home. Impression: Superficial injury of head; kr2 Contusion of unspecified part of head - left cheek; Abrasion of other part of head - left cheek; Acute sinusitis. Condition is Stable. Discharge Instructions: Contusion, Facial or Scalp Contusion, Head Injury, Adult, Contusion, Lqgu-wi-Msev, Head Injury, Adult, Sqpw-lv-Veuy, Facial or Scalp Contusion, Csdy-um-Fzon. Forms are Medication Reconciliation Form, Thank You Letter, Antibiotic Education, Prescription Opioid Use. Follow up: Private Physician; When: 2 - 3 days; Reason: Recheck today's complaints, Continuance of care, Re-evaluation by your physician. Problem is new. Symptoms have improved. [facility]
--- NOTE | 2018-08-23 14:48 | RAD REPORT ---
EXAM DESCRIPTION: CT - [id number] - 08/23/2018 2:15 pm CLINICAL HISTORY: Trauma, head and neck injury. PAIN COMPARISON: CT HEAD CSPINE MPR WO CONTRAST dated 07/30/2012 TECHNIQUE: Axial 5 mm thick images of the head were obtained. Axial 2 mm thick images of the cervical spine were obtained with sagittal and coronal reconstruction images generated and reviewed. All CT scans are performed using dose optimization technique as appropriate and may include automated exposure control or mA/KV adjustment according to patient size. FINDINGS: CT HEAD WITHOUT CONTRAST: No acute hemorrhage, hydrocephalus or extra-axial collection is identified.No areas of brain edema or midline shift. Multifocal paranasal sinus thickening is seen, greatest in left maxillary antrum, right sphenoid sinu s and ethmoid air cells.The calvarium is intact. 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 Emphysematous upper lung gilliam. IMPRESSION: No acute intracranial or cervical spine findings. Moderate multifocal paranasal sinusitis.
--- NOTE | 2018-08-23 14:50 | RAD REPORT ---
EXAM DESCRIPTION: CT - CTFB CLINICAL HISTORY: FACIAL PAIN Trauma, fall COMPARISON: CTFACIAL BONES W MPR dated 07/30/2012 TECHNIQUE: Axial 2 mm thick images of the face were obtained with sagittal and coronal reconstructio n images. All CT scans are performed using dose optimization technique as appropriate and may include automated exposure control or mA/KV adjustment according to patient size. FINDINGS: No acute facial bone fracture is seen.Evidence of previous right lamina papyracea as well as mild nasal bone fracture seen. Small focal hematoma is seen superficial to the left zygoma. The ma ndible is intact. The globes and orbital contents are grossly unremarkable.Moderate multifocal paranasal sinus opacific ation is present. IMPRESSION: Negative for facial bone fracture.
[2018-08-23] MEDS ORDERED: AMOX/K CLAV 875 MG TAB ONE (15:57)
[2018-08-23 17:18] VITALS: TEMP 97.9
[2018-08-23 17:20] VITALS: BP 111/85; O2SAT 97
== END 2018-08-23 16:03 | disposition home or self-care (01) ==
LOC: ER 13:19
DX: S00.83XA Contusion of other part of head, initial encounter (principal); S00.81XA Abrasion of other part of head, initial encounter; J01.90 Acute sinusitis, unspecified; W19.XXXA Unspecified fall, initial encounter; Y93.9 Activity, unspecified; Y92.480 Sidewalk as the place of occurrence of the external cause; Z79.01 Long term (current) use of anticoagulants; I10 Essential (primary) hypertension; I25.2 Old myocardial infarction; E03.9 Hypothyroidism, unspecified; F41.9 Anxiety disorder, unspecified; F17.210 Nicotine dependence, cigarettes, uncomplicated
CPT/HCPCS: 70450; 70486; 71045; 72125; 76377; 81003; 90714; 99285

== ENCOUNTER 2018-11-14 11:41 | Emergency (ER) | payer MEDICAID ==
--- OUTSIDE RECORDS SUMMARY | 2018-11-14 11:43 | XMS REPORT | Clinical Summary ---
:1965 Author Organization [facility] Address [address] [place] [address] Care Team Providers Name Role Phone Sharpless Primary Care Provider Unavailable Allergies No Known [...] L CATH & PCI MD Anastacio after 2017 Immunizations Name Dates Previously Given Next Due [...] Taken Blood Pressure 105/69 12/15/2017 8:14 AM ADMINISTRATIVE ASSISTANT COORDINATOR Pulse 75 12/15/2017 8:14 AM ADMINISTRATIVE ASSISTANT COORDINATOR Temperature 36.9 C (98.4 F) 12/15/2017 8:14 AM ADMINISTRATIVE ASSISTANT COORDINATOR Respiratory Rate 18 12/15/2017 8:14 AM ADMINISTRATIVE ASSISTANT COORDINATOR Oxygen Saturation 99% 12/15/2017 8:14 AM ADMINISTRATIVE ASSISTANT COORDINATOR Inhaled Oxygen Concentration - - Weight 71.4 kg (157 lb 6.4 oz) 12/15/2017 4:55 AM ADMINISTRATIVE ASSISTANT COORDINATOR Height 188 cm (6' 2") 12/12/2017 10:30 AM ADMINISTRATIVE ASSISTANT COORDINATOR Body Mass Index 20.21 12/15/2017 4:55 AM ADMINISTRATIVE ASSISTANT COORDINATOR Plan of Treatment Health Maintenance Due Date Last Done Comments INFLUENZA VACCINE 07/11/2018 12/13/2017 Implants Implanted Type Area Excellence Specialist Device Shelf Model / Identifier Expiration Serial / Date Lot Synergy Stents-C N/A: [place] 06/11/2018 [id number] / Implanted: Qty: 1 on 12/12/2017 by Odessa Busch MD [facility] Coronary [employer] / [id number] Procedures Procedure Name Priority Date/Time Associated Comments Diagnosis REPORT OF PROCEDURE - 12/29/2017 1:52 ENDOSCOPY SCAN PM CDT VASCULAR DIAGRAM -SCAN 12/21/2017 3:01 PM CDT RHYTHM STRIP - SCAN 12/16/2017 1:21 PM ADMINISTRATIVE ASSISTANT COORDINATOR VASCULAR DIAGRAM -SCAN 12/16/2017 1:21 PM ADMINISTRATIVE ASSISTANT COORDINATOR ECHOCARDIOGRAM REPORT 12/15/2017 11:50 - SCAN AM ADMINISTRATIVE ASSISTANT COORDINATOR MAGNESIUM Routine 12/15/2017 4:58 Results for this AM ADMINISTRATIVE ASSISTANT COORDINATOR procedure are in the results section. CBC (HEMOGRAM ONLY) Routine 12/15/2017 4:58 Results for this AM ADMINISTRATIVE ASSISTANT COORDINATOR procedure are in the results section. BASIC METABOLIC PANEL Routine 12/15/2017 4:58 Results for this (7) AM ADMINISTRATIVE ASSISTANT COORDINATOR procedure are in the results section. TROPONIN I STAT 12/14/2017 10:27 Results for this PM ADMINISTRATIVE ASSISTANT COORDINATOR procedure are in the results section. 2D ECHO W/ DOPPLER PK 12/14/2017 5:31 Results for this (CW/PW/COLOR) PM ADMINISTRATIVE ASSISTANT COORDINATOR procedure are in the results section. CARDIAC CATH REPORT - 12/14/2017 1:22 SCAN PM ADMINISTRATIVE ASSISTANT COORDINATOR MAGNESIUM Routine 12/14/2017 4:01 Results for this AM ADMINISTRATIVE ASSISTANT COORDINATOR procedure are in the results section. CBC (HEMOGRAM ONLY) Routine 12/14/2017 4:01 Results for this AM ADMINISTRATIVE ASSISTANT COORDINATOR procedure are in the results section. BASIC METABOLIC PANEL Routine 12/14/2017 4:01 Results for this (7) AM ADMINISTRATIVE ASSISTANT COORDINATOR procedure are in the results section. MAGNESIUM Routine 12/13/2017 5:35 Results for this AM ADMINISTRATIVE ASSISTANT COORDINATOR procedure are in the results section. CBC (HEMOGRAM ONLY) Routine 12/13/2017 5:35 Results for this AM ADMINISTRATIVE ASSISTANT COORDINATOR procedure are in the results section. BASIC METABOLIC PANEL Routine 12/13/2017 5:35 Results for this (7) AM ADMINISTRATIVE ASSISTANT COORDINATOR procedure are in the results section. VITAMIN B1 Routine 12/12/2017 4:56 Results for this PM ADMINISTRATIVE ASSISTANT COORDINATOR procedure are in the results section. POCT-ACT Routine 12/12/2017 3:52 Results for this PM ADMINISTRATIVE ASSISTANT COORDINATOR procedure are in the results section. POCT-ACT Routine 12/12/2017 2:45 Results for this PM ADMINISTRATIVE ASSISTANT COORDINATOR procedure are in the results section. POCT-ACT Routine 12/12/2017 1:52 Results for this PM ADMINISTRATIVE ASSISTANT COORDINATOR procedure are in the results section. T4, FREE Routine 12/12/2017 1:30 Results for this PM ADMINISTRATIVE ASSISTANT COORDINATOR procedure are in the results section. TSH/FREE T4 IF Routine 12/12/2017 1:30 Results for this INDICATED PM ADMINISTRATIVE ASSISTANT COORDINATOR procedure are in the results section. CBC W/PLT COUNT & AUTO Routine 12/12/2017 1:27 Results for this DIFFERENTIAL PM ADMINISTRATIVE ASSISTANT COORDINATOR procedure are in the results section. HEMOGLOBIN A1C AP Routine 12/12/2017 1:27 Results for this PM ADMINISTRATIVE ASSISTANT COORDINATOR procedure are in the results section. LIPID PANEL Routine 12/12/2017 1:27 Results for this PM ADMINISTRATIVE ASSISTANT COORDINATOR procedure are in the results section. B-TYPE NATRIURETIC Routine 12/12/2017 1:27 Results for this FACTOR (BNP) PM ADMINISTRATIVE ASSISTANT COORDINATOR procedure are in the results section. CREATINE KINASE (CK), Routine 12/12/2017 1:27 Results for this TOTAL AND MB PM ADMINISTRATIVE ASSISTANT COORDINATOR procedure are in the results section. TROPONIN I Routine 12/12/2017 1:27 Results for this PM ADMINISTRATIVE ASSISTANT COORDINATOR procedure are in the results section. CBC W/PLT COUNT & AUTO Routine 12/12/2017 1:27 Results for this DIFFERENTIAL PM ADMINISTRATIVE ASSISTANT COORDINATOR procedure are in the results section. PHOSPHORUS Routine 12/12/2017 1:27 Results for this PM ADMINISTRATIVE ASSISTANT COORDINATOR procedure are in the results section. MAGNESIUM Routine 12/12/2017 1:27 Results for this PM ADMINISTRATIVE ASSISTANT COORDINATOR procedure are in the results section. COMPREHENSIVE Routine 12/12/2017 1:27 Results for this METABOLIC PANEL PM ADMINISTRATIVE ASSISTANT COORDINATOR procedure are in the results section. POCT-ACT Routine 12/12/2017 11:35 Results for this AM ADMINISTRATIVE ASSISTANT COORDINATOR procedure are in the results section. POCT-ACT Routine 12/12/2017 11:08 Results for this AM ADMINISTRATIVE ASSISTANT COORDINATOR procedure are in the results section. POCT-ACT Routine 12/12/2017 10:54 Results for this AM ADMINISTRATIVE ASSISTANT COORDINATOR procedure are in the results section. L CATH & PCI 12/12/2017 9:50 stemi AM ADMINISTRATIVE ASSISTANT COORDINATOR after 2017 Results EKG-SCANNED (12/29/2017 1:52 PM CDT) Narrative Performed At VASCULAR DIAGRAM -SCAN (12/21/2017 3:01 PM CDT)Only the most recent of2 resultswithin the time period is included. Narrative Performed At RHYTHM STRIP - SCAN (12/16/2017 1:21 PM ADMINISTRATIVE ASSISTANT COORDINATOR) Narrative Performed At ECHOCARDIOGRAM REPORT - SCAN (12/15/2017 11:50 AM ADMINISTRATIVE ASSISTANT COORDINATOR) Narrative Performed At CBC (Hemogram only) (12/15/2017 4:58 AM ADMINISTRATIVE ASSISTANT COORDINATOR)Only the most recent of3 resultswithin the time period is included. WBC 4.5 3.5 - 10.5 K/L [facility] RBC 4.28 (L) 4.63 - 6.08 M/L [facility] Hemoglobin 12.7 (L) 13.7 - 17.5 GM/DL [facility] Hematocrit 39.2 (L) 40.1 - 51.0 % [facility] MCV 91.6 79.0 - 92.2 fL [facility] MCH 29.7 25.7 - 32.2 pg [facility] MCHC 32.4 32.3 - 36.5 GM/DL [facility] RDW 14.1 11.6 - 14.4 % [facility] Platelets 149 (L) 150 - 450 K/CU MM [facility] MPV 10.2 9.4 - 12.4 fL [facility] nRBC 0 0 - 0 /100 WBC [facility] Specimen Blood Performing Organization Address City/State/Zipcode Phone Number [facility] [address] [place] [address] CENTER Magnesium (12/15/2017 4:58 AM ADMINISTRATIVE ASSISTANT COORDINATOR)Only the most recent of4 resultswithin the time period is included. Magnesium 1.6 1.6 - 2.6 mg/dL [facility] Specimen Blood Performing Organization Address City/[facility]/Zipcode Phone Number [facility] [address] [place] [phone] [place] Basic metabolic panel (12/15/2017 4:58 AM ADMINISTRATIVE ASSISTANT COORDINATOR)Only the most recent of3 resultswithin the time period is included. Sodium 139 136 - 145 meq/L [facility] Potassium 4.1 3.5 - 5.1 meq/L [facility] Chloride 105 98 - 107 meq/L [facility] CO2 25 22 - 29 meq/L [facility] BUN 9 7 - 21 mg/dL [facility] Creatinine 0.75 0.57 - 1.25 mg/dL [facility] Glucose 84 70 - 105 mg/dL [facility] Calcium 9.1 8.4 - 10.2 mg/dL [facility] EGFR 109Comment: ESTIMATED GFR IS mL/min/1.73 sq m [facility] NOT ACCURATE CREATININE [facility] CENTER CLEARANCE IN PREDICTING GLOMERULAR FILTRATION RATE. ESTIMATED GFR IS NOT APPLICABLE FOR DIALYSIS PATIENTS. Specimen Blood Performing Organization Address City/[facility]/Zipcode Phone Number [address] [address] [place] Troponin I (12/14/2017 10:27 PM ADMINISTRATIVE ASSISTANT COORDINATOR)Only the most recent of2 resultswithin the time period is included. Troponin I 0.99 (HH) 0.00 - 0.03 ng/mL [facility] Specimen Blood Narrative Performed At [facility] Troponin I (TnI) levels must be [...] Performing Organization Address City/State/Zipcode Phone Number [facility] [address] [place] [address] CENTER Transthoracic 2D echo w/ doppler (cw/pw/color) (12/14/2017 5:31 PM ADMINISTRATIVE ASSISTANT COORDINATOR) Ejection Fraction [facility] MKCKESSON CPA Narrative Performed At Transthoracic Echocardiography Report (TTE) [facility]ON [facility] Demographics Patient Name JOSEPH WEAVER Date of Study 12/14/2017 [id number] GenderMale Visit Number [id number] Unknown [id number] Room Number 1135 Number Date of Birth1965Referring Physician Odessa Busch MD Age52 year(s)Blow Pit Helper Brenda Regicameron [facility] AnalystAriadna InterpretingGorge Hernadez Physician Procedure [...] External Ris In - 12/15/2017 11:13 AM ADMINISTRATIVE ASSISTANT COORDINATOR Transthoracic Echocardiography Report (TTE) Demographics Patient Name JOSEPH WEAVER Date of Study 12/14/2017 Gender Male Visit Number [id number] Race Unknown Room Number 1135 Number Date of 1965 Referring Physician Odessa Busch MD Age 52 year(s) Blow Pit Helper Brenda Peters CS Signal Intelligence Analyst Negar Interpreting Gorge Hernadez Physician Procedure Type [...] 1.01 cm LV FS: 18.2 % LVEDV Marai's:80.34 ml LVESV Maria's:51.29 ml LVEDVI: 40 ml/m^2 [...] VTI (PW): 9.92 cm Performing Organization Address [facility] Phone Number [facility] MKCKESSON CPA CARDIAC CATH REPORT - SCAN (12/14/2017 1:22 PM ADMINISTRATIVE ASSISTANT COORDINATOR) Narrative Performed At Vitamin B1 (12/12/2017 4:56 PM ADMINISTRATIVE ASSISTANT COORDINATOR) Vitamin B1,LCMSMS 19 8 - 30 nmol/L [facility] Comment: INCORPORATED Vitamin supplementation within 24 hours prior to blood draw may affect the accuracy of results. This test was developed and its analytical performance characteristics have been determined by [employer]. It has not been cleared or approved by FDA. This assay has been validated pursuant to the CLIA regulations and is used for clinical purposes. Specimen Blood - Line, Venous Narrative Performed At Performing Lab [facility] *[facility] [facility], [address] [place] [address] Ameena Aparicio MD, PhD Performing Organization Address City/[facility] Phone Number [facility] [place] [address] INCORPORATED [id number] [facility] POC ACTIVATED CLOTTING TIME (12/12/2017 3:52 PM ADMINISTRATIVE ASSISTANT COORDINATOR)Only the most recent of6 resultswithin the time period is included. Activated Clotting Time 125Comment: TESTED AT [facility] [address] [facility] [address] Specimen Blood Performing Organization Address City/State/Zipcode Phone Number [address] [address] CENTER TSH/T4 if indicated (12/12/2017 1:30 PM ADMINISTRATIVE ASSISTANT COORDINATOR) TSH 5.53 (H) 0.35 - 4.94 uIU/mL [facility] Specimen Blood Performing Organization Address City/[facility]/Zipcode Phone Number [address] [address] [place] T4, free (12/12/2017 1:30 PM ADMINISTRATIVE ASSISTANT COORDINATOR) Free T4 0.94 0.70 - 1.48 ng/dL [facility] Specimen Blood Performing Organization Address City/[facility] Cent[facility] Phone Number [address] [address] [place] CBC with platelet count + automated diff (12/12/2017 1:27 PM ADMINISTRATIVE ASSISTANT COORDINATOR) WBC 7.5 3.5 - 10.5 K/L [facility] RBC 4.27 (L) 4.63 - 6.08 M/L [facility] Hemoglobin 12.7 (L) 13.7 - 17.5 GM/DL [facility] Hematocrit 38.3 (L) 40.1 - 51.0 % [facility] MCV 89.7 79.0 - 92.2 fL [facility] MCH 29.7 25.7 - 32.2 pg [facility] MCHC 33.2 32.3 - 36.5 GM/DL [facility] RDW 13.9 11.6 - 14.4 % [facility] Platelets 172 150 - 450 K/CU MM [facility] MPV 9.5 9.4 - 12.4 fL [facility] nRBC 0 0 - 0 /100 WBC [facility] % Neutros 81 % [facility] % Lymphs 10 % [facility] % Monos 8 % [facility] % Eos 0 % [facility] % Baso 1 % [facility] # Neutros 6.06 (H) 1.78 - 5.38 K/L [facility] # Lymphs 0.78 (L) 1.32 - 3.57 K/L [facility] # Monos 0.60 0.30 - 0.82 K/L [facility] # Eos 0.00 (L) 0.04 - 0.54 K/L [facility] # Baso 0.04 0.01 - 0.08 K/L [facility] Immature Granulocytes-Relative 0 0 - 1 % [facility] Specimen Blood Performing Organization Address City/[facility]/Zipcode Phone Number [address] [address] [phone] CENTER Phosphorus (12/12/2017 1:27 PM ADMINISTRATIVE ASSISTANT COORDINATOR) Phosphorus 3.4 2.3 - 4.7 mg/dL [facility] Specimen Blood Performing Organization Address City/State/Zipcode Phone Number [address] [address] [phone] [place] B-type Natriuretic Factor (BNP) (12/12/2017 1:27 PM ADMINISTRATIVE ASSISTANT COORDINATOR) BNP 25 0 - 100 pg/mL [facility] Specimen Blood Performing Organization Address City/[facility]/Zipcode Phone Number [address] [address] CENTER Hemoglobin A1c (12/12/2017 1:27 PM ADMINISTRATIVE ASSISTANT COORDINATOR) Hemoglobin A1C 5.3 4.3 - 6.1 % [facility] Specimen Blood Performing Organization Address City/[facility]/Zipcode Phone Number [address] [address] [phone] [place] Creatine Kinase (CK), Total and MB (12/12/2017 1:27 PM ADMINISTRATIVE ASSISTANT COORDINATOR) Total CK 336 (H) 29 - 200 U/L [facility] CK-MB 21.4 (H) 0.0 - 6.6 ng/mL [facility] MB Relative Index 6.4 % [facility] Specimen Blood Narrative Performed At CK-MB Reference Range: [facility] <6.7Normal 6.7-10.0Borderline >10.0 Abnormal Performing Organization Address [facility] Phone Number [address] [address] [place] Lipid panel (12/12/2017 1:27 PM ADMINISTRATIVE ASSISTANT COORDINATOR) Triglycerides 29 mg/dL [facility] Cholesterol 148 mg/dL [facility] HDL 86 mg/dL [facility] LDL Calculated 56 mg/dL [facility] Specimen Blood Narrative Performed At [facility] Triglyceride Reference Range: Low Risk <150 [id number] High Risk 200-499 Very High Risk>=500 Cholesterol Reference Range: Low Risk <200 [id number] High Risk>240 HDL Cholesterol Reference Range: Low Risk >=60 High Risk <40 LDL Cholesterol Reference Range: Optimal<100 Near [id number] Very High >=190 Performing Organization Address City/[facility] Cent[facility]ode Phone Number [address] [address] [place] Comprehensive metabolic panel (12/12/2017 1:27 PM ADMINISTRATIVE ASSISTANT COORDINATOR) Protein, Total 6.5 6.0 - 8.3 gm/dL [facility] Albumin 3.8 3.5 - 5.0 g/dL [facility] Alkaline Phosphatase 72 40 - 150 U/L [facility] Total Bilirubin 1.1 0.2 - 1.2 mg/dL [facility] Sodium 137 136 - 145 meq/L [facility] Potassium 4.5 3.5 - 5.1 meq/L [facility] Chloride 103 98 - 107 meq/L [facility] CO2 23 22 - 29 meq/L [facility] BUN 12 7 - 21 mg/dL [facility] Creatinine 0.78 0.57 - 1.25 mg/dL [facility] Glucose 79 70 - 105 mg/dL [facility] Calcium 8.5 8.4 - 10.2 mg/dL [facility] AST 55 (H) 5 - 34 U/L [facility] ALT 18 6 - 55 U/L [facility] EGFR 104Comment: ESTIMATED mL/min/1.[address] [facility] GFR IS NOT ACCURATE [facility] CREATININE CLEARANCE IN PREDICTING GLOMERULAR FILTRATION RATE. ESTIMATED GFR IS NOT APPLICABLE FOR DIALYSIS PATIENTS. Specimen Blood Performing Organization Address City/State/Zipcode Phone Number [facility] [address] [place] [address] CENTER after 2017 Insurance Payer Benefit Plan / Group Subscriber ID Type Phone Address [place] MED[place] MEDICAID [place] xxxxxxxxx
--- OUTSIDE RECORDS SUMMARY | 2018-11-14 11:44 | XMS REPORT ---
:1965 [facility] Address [address] [place] [address] Care Team Providers Name Role Phone GERI LAWTON Unavailable Unavailable Problems This patient has no known problems. Allergies, Adverse Reactions, Alerts This patient has no known allergies or adverse reactions. Medications This patient has no known medications. Results Test Description Test Time Test Comments Text Results Atomic Results Result Comments MAGNESIUM 2017-12-15 06:32:00 Test Item Value Reference Range Comments MAGNESIUM (BEAKER) (test kpep=794) 1.6 mg/dL 1.6-2.6 BASIC METABOLIC [id number] 06:32:00 Test Item Value Reference Range Comments SODIUM (BEAKER) (test 139 meq/L 136-145 rckz=537) POTASSIUM (BEAKER) (test 4.1 meq/L 3.5-5.1 ibem=834) CHLORIDE (BEAKER) (test 105 meq/L 98-107 qizr=302) CO2 (BEAKER) (test 25 meq/L 22-29 ukda=317) BLOOD UREA NITROGEN 9 mg/dL 7-21 (BEAKER) (test bkja=188) CREATININE (BEAKER) (test 0.75 mg/dL 0.57-1.25 rxte=451) GLUCOSE RANDOM (BEAKER) 84 mg/dL 70-105 (test pmop=523) CALCIUM (BEAKER) (test 9.1 mg/dL 8.4-10.2 djdy=562) EGFR (BEAKER) (test 109 mL/min/1.73 sq m ESTIMATED GFR IS NOT avyd=7459) ACCURATE CREATININE CLEARANCE IN PREDICTING GLOMERULAR FILTRATION RATE. ESTIMATED GFR IS NOT APPLICABLE FOR DIALYSIS PATIENTS. CBC (HEMOGRAM ONLY)2017-12-15 06:08:00 Test Item Value Reference Range Comments WHITE BLOOD CELL COUNT (BEAKER) (test umxg=013) 4.5 K/ L 3.5-10.5 RED BLOOD CELL COUNT (BEAKER) (test idhe=204) 4.28 M/ L 4.63-6.08 HEMOGLOBIN (BEAKER) (test hpka=554) 12.7 GM/DL 13.7-17.5 HEMATOCRIT (BEAKER) (test mznv=503) 39.2 % 40.1-51.0 MEAN CORPUSCULAR VOLUME (BEAKER) (test fxax=922) 91.6 fL 79.0-92.2 MEAN CORPUSCULAR HEMOGLOBIN (BEAKER) (test 29.7 pg 25.7-32.2 ssmr=984) MEAN CORPUSCULAR HEMOGLOBIN CONC (BEAKER) (test 32.4 GM/DL 32.3-36.5 zbkn=625) RED CELL DISTRIBUTION WIDTH (BEAKER) (test 14.1 % 11.6-14.4 gblg=957) PLATELET COUNT (BEAKER) (test izev=580) 149 K/CU MM 150-450 MEAN PLATELET VOLUME (BEAKER) (test kdlc=393) 10.2 fL 9.4-12.4 NUCLEATED RED BLOOD CELLS (BEAKER) (test 0 /100 WBC 0-0 iiur=658) TROPONIN [id number] 23:05:00 Test Item Value Reference Range Comments TROPONIN I (BEAKER) (test gnfv=827) 0.99 ng/mL 0.00-0.03 Troponin I (TnI) levels [...] failure, acidosis, acute neurological disease, and persistent tachyarrhythmia.[id number] 05:14:00 Test Item Value Reference Range Comments MAGNESIUM (BEAKER) (test wraj=176) 1.7 mg/dL 1.6-2.6 BASIC METABOLIC [id number] 05:14:00 Test Item Value Reference Range Comments SODIUM (BEAKER) (test 137 meq/L 136-145 rhhx=061) POTASSIUM (BEAKER) (test 4.0 meq/L 3.5-5.1 qmep=945) CHLORIDE (BEAKER) (test 104 meq/L 98-107 rihh=933) CO2 (BEAKER) (test 26 meq/L 22-29 zcet=819) BLOOD UREA NITROGEN 7 mg/dL 7-21 (BEAKER) (test qxvh=225) CREATININE (BEAKER) (test 0.86 mg/dL 0.57-1.25 unhe=505) GLUCOSE RANDOM (BEAKER) 84 mg/dL 70-105 (test shum=895) CALCIUM (BEAKER) (test 9.0 mg/dL 8.4-10.2 psha=698) EGFR (BEAKER) (test 93 mL/min/1.73 sq m ESTIMATED GFR IS NOT idws=3334) ACCURATE CREATININE CLEARANCE IN PREDICTING GLOMERULAR FILTRATION RATE. ESTIMATED GFR IS NOT APPLICABLE FOR DIALYSIS PATIENTS. CBC (HEMOGRAM ONLY)2017-12-14 04:38:00 Test Item Value Reference Range Comments WHITE BLOOD CELL COUNT (BEAKER) (test vdxj=850) 3.7 K/ L 3.5-10.5 RED BLOOD CELL COUNT (BEAKER) (test yzwy=750) 4.13 M/ L 4.63-6.08 HEMOGLOBIN (BEAKER) (test fiuk=160) 12.2 GM/DL 13.7-17.5 HEMATOCRIT (BEAKER) (test bacn=193) 37.6 % 40.1-51.0 MEAN CORPUSCULAR VOLUME (BEAKER) (test lzwq=831) 91.0 fL 79.0-92.2 MEAN CORPUSCULAR HEMOGLOBIN (BEAKER) (test 29.5 pg 25.7-32.2 ecil=345) MEAN CORPUSCULAR HEMOGLOBIN CONC (BEAKER) (test 32.4 GM/DL 32.3-36.5 zhpf=415) RED CELL DISTRIBUTION WIDTH (BEAKER) (test 13.9 % 11.6-14.4 vsaa=754) PLATELET COUNT (BEAKER) (test kvdk=742) 131 K/CU MM 150-450 MEAN PLATELET VOLUME (BEAKER) (test idzu=037) 10.1 fL 9.4-12.4 NUCLEATED RED BLOOD CELLS (BEAKER) (test 0 /100 WBC 0-0 tfln=657) [id number] 09:35:00 Test Item Value Reference Range Comments ACTIVATED CLOTTING TIME 279 sec TESTED AT [place] [address] [address] (BEAKER) (test sgat=448) [place] [address] [id number] 09:35:00 Test Item Value Reference Range Comments ACTIVATED CLOTTING TIME 246 sec TESTED AT [place] [address] [place] (BEAKER) (test abnw=260) [place] [address] [id number] 08:47:00 Test Item Value Reference Range Comments ACTIVATED CLOTTING TIME 114 sec TESTED AT [place] [address] [place] (BEAKER) (test prby=828) [place] [address] [id number] 06:45:00 Test Item Value Reference Range Comments MAGNESIUM (BEAKER) (test ynkk=399) 1.9 mg/dL 1.6-2.6 BASIC METABOLIC [id number] 06:45:00 Test Item Value Reference Range Comments SODIUM (BEAKER) (test 139 meq/L 136-145 smxn=889) POTASSIUM (BEAKER) (test 3.9 meq/L 3.5-5.1 byln=179) CHLORIDE (BEAKER) (test 105 meq/L 98-107 zyqx=496) CO2 (BEAKER) (test 25 meq/L 22-29 pixm=703) BLOOD UREA NITROGEN 11 mg/dL 7-21 (BEAKER) (test axom=672) CREATININE (BEAKER) (test 0.77 mg/dL 0.57-1.25 kpip=395) GLUCOSE RANDOM (BEAKER) 84 mg/dL 70-105 (test idfx=371) CALCIUM (BEAKER) (test 8.4 mg/dL 8.4-10.2 zbup=767) EGFR (BEAKER) (test 105 mL/min/1.73 sq m ESTIMATED GFR IS NOT nfag=8529) ACCURATE CREATININE CLEARANCE IN PREDICTING GLOMERULAR FILTRATION RATE. ESTIMATED GFR IS NOT APPLICABLE FOR DIALYSIS PATIENTS. CBC (HEMOGRAM ONLY)2017-12-13 05:55:00 Test Item Value Reference Range Comments WHITE BLOOD CELL COUNT (BEAKER) (test mjli=554) 4.4 K/ L 3.5-10.5 RED BLOOD CELL COUNT (BEAKER) (test cuga=524) 4.10 M/ L 4.63-6.08 HEMOGLOBIN (BEAKER) (test dwyt=817) 12.2 GM/DL 13.7-17.5 HEMATOCRIT (BEAKER) (test wcjw=589) 37.4 % 40.1-51.0 MEAN CORPUSCULAR VOLUME (BEAKER) (test goey=956) 91.2 fL 79.0-92.2 MEAN CORPUSCULAR HEMOGLOBIN (BEAKER) (test 29.8 pg 25.7-32.2 xrpr=684) MEAN CORPUSCULAR HEMOGLOBIN CONC (BEAKER) (test 32.6 GM/DL 32.3-36.5 iebv=653) RED CELL DISTRIBUTION WIDTH (BEAKER) (test 14.0 % 11.6-14.4 qypw=595) PLATELET COUNT (BEAKER) (test lxsa=147) 128 K/CU MM 150-450 MEAN PLATELET VOLUME (BEAKER) (test jwlv=032) 9.5 fL 9.4-12.4 NUCLEATED RED BLOOD CELLS (BEAKER) (test 0 /100 WBC 0-0 etlz=874) HEMOGLOBIN [id number] 23:29:00 Test Item Value Reference Range Comments HEMOGLOBIN A1C (BEAKER) (test ukai=877) 5.3 % 4.3-6.1 [id number] 15:58:00 Test Item Value Reference Range Comments ACTIVATED CLOTTING TIME 125 sec TESTED AT [address] ([facility] (test xtbp=275) [place] [address] T4, [id number] 14:56:00 Test Item Value Reference Range Comments FREE T4 (BEAKER) (test mfij=861) 0.94 ng/dL 0.70-1.48 [id number] 14:50:00 Test Item Value Reference Range Comments ACTIVATED CLOTTING TIME 136 sec TESTED AT [place] [address] [facility] (BE[facility]) (test ymbg=680) [place] [address] [id number] 14:25:00 Test Item Value Reference Range Comments ACTIVATED CLOTTING TIME 164 sec TESTED AT [address] ([facility]) (test fuqo=238) [place] [id number] TSH/FREE T4 IF [id number] 14:25:00 Test Item Value Reference Range Comments THYROID STIMULATING HORMONE (BEAKER) (test 5.53 uIU/mL 0.35-4.94 eoys=226) TROPONIN [id number] 14:09:00 Test Item Value Reference Range Comments TROPONIN I (BEAKER) (test amgm=728) 32.04 ng/mL 0.00-0.03 Troponin I (TnI) levels [...] and persistent tachyarrhythmia.CBC W/PLT COUNT & AUTO [id number] 14:07:00 Test Item Value Reference Range Comments WHITE BLOOD CELL COUNT (BEAKER) (test qbix=552) 7.5 K/ L 3.5-10.5 RED BLOOD CELL COUNT (BEAKER) (test ideq=420) 4.27 M/ L 4.63-6.08 HEMOGLOBIN (BEAKER) (test bgqc=259) 12.7 GM/DL 13.7-17.5 HEMATOCRIT (BEAKER) (test nmju=181) 38.3 % 40.1-51.0 MEAN CORPUSCULAR VOLUME (BEAKER) (test mffy=558) 89.7 fL 79.0-92.2 MEAN CORPUSCULAR HEMOGLOBIN (BEAKER) (test 29.7 pg 25.7-32.2 yvom=548) MEAN CORPUSCULAR HEMOGLOBIN CONC (BEAKER) (test 33.2 GM/DL 32.3-36.5 mjtc=955) RED CELL DISTRIBUTION WIDTH (BEAKER) (test 13.9 % 11.6-14.4 lplo=568) PLATELET COUNT (BEAKER) (test eofi=815) 172 K/CU MM 150-450 MEAN PLATELET VOLUME (BEAKER) (test uwad=739) 9.5 fL 9.4-12.4 NUCLEATED RED BLOOD CELLS (BEAKER) (test 0 /100 WBC 0-0 xzsy=400) NEUTROPHILS RELATIVE PERCENT (BEAKER) (test 81 % bqql=026) LYMPHOCYTES RELATIVE PERCENT (BEAKER) (test 10 % sbcu=946) MONOCYTES RELATIVE PERCENT (BEAKER) (test 8 % ptjc=819) EOSINOPHILS RELATIVE PERCENT (BEAKER) (test 0 % vhbz=001) BASOPHILS RELATIVE PERCENT (BEAKER) (test 1 % svlx=676) NEUTROPHILS ABSOLUTE COUNT (BEAKER) (test 6.06 K/ L 1.78-5.38 rmpd=393) LYMPHOCYTES ABSOLUTE COUNT (BEAKER) (test 0.78 K/ L 1.32-3.57 yeyh=139) MONOCYTES ABSOLUTE COUNT (BEAKER) (test 0.60 K/ L 0.30-0.82 skpy=480) EOSINOPHILS ABSOLUTE COUNT (BEAKER) (test 0.00 K/ L 0.04-0.54 bzfj=597) BASOPHILS ABSOLUTE COUNT (BEAKER) (test 0.04 K/ L 0.01-0.08 ymjx=710) IMMATURE GRANULOCYTES-RELATIVE PERCENT (BEAKER) 0 % 0-1 (test wghu=8740) CREATINE KINASE (CK), TOTAL AND [id number] 14:06:00 Test Item Value Reference Range Comments CREATINE KINASE TOTAL (BEAKER) (test amkn=659) 336 U/L 29-200 CREATINE KINASE-MB (BEAKER) (test jrpb=174) 21.4 ng/mL 0.0-6.6 CREATINE KINASE-MB INDEX (BEAKER) (test hfxb=901) 6.4 % CK-MB Reference Range:<6.7 Normal6.7-10.0 Borderline>10.0 AbnormalB-TYPE NATRIURETIC FACTOR (BNP)2017-12-12 14:05:00 Test Item Value Reference Range Comments B-TYPE NATRIURETIC PEPTIDE (BEAKER) (test yugx=841) 25 pg/mL 0-100 [id number] 13:59:00 Test Item Value Reference Range Comments PHOSPHORUS (BEAKER) (test pdwd=773) 3.4 mg/dL 2.3-4.7 [id number] 13:59:00 Test Item Value Reference Range Comments MAGNESIUM (BEAKER) (test oauc=299) 1.9 mg/dL 1.6-2.6 COMPREHENSIVE METABOLIC [id number] 13:59:00 Test Item Value Reference Range Comments TOTAL PROTEIN (BEAKER) 6.5 gm/dL 6.0-8.3 (test gkbz=944) ALBUMIN (BEAKER) (test 3.8 g/dL 3.5-5.0 warq=7886) ALKALINE PHOSPHATASE 72 U/L 40-150 (BEAKER) (test ignz=339) BILIRUBIN TOTAL (BEAKER) 1.1 mg/dL 0.2-1.2 (test urpd=168) SODIUM (BEAKER) (test 137 meq/L 136-145 wjlb=614) POTASSIUM (BEAKER) (test 4.5 meq/L 3.5-5.1 tsqj=060) CHLORIDE (BEAKER) (test 103 meq/L 98-107 cjvo=157) CO2 (BEAKER) (test 23 meq/L 22-29 ehvm=437) BLOOD UREA NITROGEN 12 mg/dL 7-21 (BEAKER) (test ihnj=463) CREATININE (BEAKER) (test 0.78 mg/dL 0.57-1.25 qasx=387) GLUCOSE RANDOM (BEAKER) 79 mg/dL 70-105 (test wpvs=978) CALCIUM (BEAKER) (test 8.5 mg/dL 8.4-10.2 zccs=394) AST (SGOT) (BEAKER) (test 55 U/L 5-34 vxdn=022) ALT (SGPT) (BEAKER) (test 18 U/L 6-55 lqtg=472) EGFR (BEAKER) (test 104 mL/min/1.73 sq ESTIMATED GFR IS NOT ffme=2390) m ACCURATE CREATININE CLEARANCE IN PREDICTING GLOMERULAR FILTRATION RATE. ESTIMATED GFR IS NOT APPLICABLE FOR DIALYSIS PATIENTS. LIPID [id number] 13:59:00 Test Item Value Reference Range Comments TRIGLYCERIDES (BEAKER) (test nvav=114) 29 mg/dL CHOLESTEROL (BEAKER) (test tqhw=114) 148 mg/dL HDL CHOLESTEROL (BEAKER) (test ruea=886) 86 mg/dL LDL CHOLESTEROL CALCULATED (BEAKER) (test 56 mg/dL idoh=556) Triglyceride Reference Range: Low Risk <150 Borderline 150- 199 High Risk 200-499 Very High Risk >=500Cholesterol Reference Range: Low Risk <200 Borderline 200-239 High Risk > 240HDL Cholesterol Reference Range: Low Risk >=60 High Risk <40LDL Cholesterol Reference Range: Optimal <100 Near Optimal 100-129 Borderline 130-159 High 160-189 Very High >=190
[2018-11-14] MEDS ORDERED: IPRATROPIUM BROM 0.5MG/2.5ML ONE (12:21)
[2018-11-14] MEDS ORDERED: ALBUTEROL 2.5 MG/3 ML NEB SOL ONE (12:21)
[2018-11-14 12:36] LABS: Absolute Lymphocytes (CBC) 1.3 K/uL (0.7-4.9); Absolute Monocytes 0.5 K/uL (0.1-1.3); Absolute Neutrophil 2.2 K/uL (1.8-8.0); Basophils % 0.6 % (0-1.3); Eosinophils % 2.2 % (0-4.4); Hematocrit 43.7 % (39.6-49.0); Lymphocytes % 31.5 % (15.3-44.8); Monocytes % 11.4 % (3.3-12.3); RBC Red Blood Cell Count 4.89 M/uL (4.33-5.43)
[2018-11-14 12:43] LABS: Barbiturates NEGATIVE (NEGATIVE); Benzodiazepines NEGATIVE (NEGATIVE); Cocaine NEGATIVE (NEGATIVE); METHAMPHETAM NEGATIVE (NEGATIVE); Methadone NEGATIVE (NEGATIVE); Opiates NEGATIVE (NEGATIVE); Phencyclidine NEGATIVE (NEGATIVE); THC Cannibis NEGATIVE (NEGATIVE)
[2018-11-14 12:51] LABS: Protime INR 0.93
[2018-11-14 12:53] LABS: ALT/SGPT 16 U/L (12-78); AST/SGOT 22 U/L (15-37); Albumin 4.1 g/dL (3.4-5.0); Alkaline Phosphatase 65 U/L (45-117); BUN Blood Urea Nitrogen 8 mg/dL (7-18); Bicarbonate 24 mmol/L (21-32); Bilirubin Direct 0.1 mg/dL (0-0.2); Bilirubin Total 0.3 mg/dL (0.2-1.0); Glucose Level 58 mg/dL (74-106); Potassium 4.3 mmol/L (3.5-5.1); Protein, Total 7.7 g/dL (6.4-8.2); Sodium Level 136 mmol/L (136-145); Troponin I < 0.02 ng/mL (0.0-0.045)
--- NOTE | 2018-11-14 12:58 | EKG ---
Test Date: 2018-10-14 Test Time: 12:45:59 [employer] Police: NALINI MEASUREMENT RESULTS: Intervals: Rate: 90 HI: 142 QRSD: 82 QT: 362 QTc: 442 [place]: P: 66 HI: 142 QRS: 46 T: 67 INTERPRETIVE STATEMENTS: Normal sinus rhythm Normal ECG Compared to ECG 12/12/2017 08:53:26 Sinus bradycardia no longer present Junctional rhythm no longer present AV block, complete (third-degree) no longer present Myocardial infarct finding no longer present Myocardial infarct finding no longer present ST (T wave) deviation still present Electronically Signed On 11-14-18 12:57:44 DIRECTOR OF STRATEGIC MARKETING by Flo Best
[2018-11-14] MEDS ORDERED: NA CHLORIDE 0.9% 1,000 ML with FOLIC ACID 1 MG, THIAMINE HCL 100 MG, MULTIVITAMINS INJ ... IV SCH ×4 (13:00)
[2018-11-14 13:18] LABS: Urine Blood NEGATIVE (NEG); Urine Glucose NEGATIVE (NEG); Urine Protein NEGATIVE (NEG); Urine Specific Gravity <1.005 (1.005-1.030); Urine pH 5.5 (5.0-7.0)
[2018-11-14] MEDS ORDERED: NA CHLORIDE 0.9% 1,000 ML ONE (20:55)
--- NOTE | 2018-11-15 00:20 | ER ---
Nurse's Notes [facility] Name: Jewel Cespedes Age: 53 yrs Sex: Male : 1965 Arrival Date: 11/14/2018 Time: 11:43 Bed 30 Private MD: Diagnosis: Alcohol abuse with intoxication Presentation: 11/14 11:49 Presenting complaint: EMS states: Sent over from "[facility]" for possible dm5 stroke but then patient stated that he has "a lot of alcohol" on board. Pt is slurring his speech and smells of alcohol. Pt also states that he needs an inhaler. Transition of care: "[facility]". Onset of symptoms was November 14, 2018. Risk Assessment: Do you want to hurt yourself or someone else? Patient reports no desire to harm self or others. Initial Sepsis Screen: Does the patient meet any 2 criteria? No. Patient's initial sepsis screen is negative. Does the patient have a suspected source of infection? No. Patient's initial sepsis screen is negative. Care prior to arrival: None. 11:49 Method Of Arrival: EMS: [facility] 5 11:49 Acuity: KAREN 3 dm5 Triage Assessment: 11:52 General: Appears in no apparent distress. slender, unkempt, Behavior is calm, dm5 cooperative, appears to have etoh on board. Pain: Denies pain. Respiratory: Reports shortness of breath intermitten Onset: The symptoms/episode began/occurred at an unknown time. the patient has mild shortness of breath. Historical: - Allergies: 11:52 NKA; dm5 - PMHx: 12:43 Anxiety; Hypertension; Hypothyroidism; Myocardial infarction; Asthma; ch - Immunization history:: Adult Immunizations not up to date. - Social history:: Smoking status: Patient uses tobacco products. - Ebola Screening: : Patient negative for fever greater than or equal to 101.5 degrees Fahrenheit, and additional compatible Ebola Virus Disease symptoms Patient denies exposure to infectious person Patient denies travel to an Ebola-affected area in the 21 days before illness onset No symptoms or risks identified at this time. Screenin:56 Abuse screen: Denies threats or abuse. Denies injuries from another. Nutritional dm5 screening: No deficits noted. Tuberculosis screening: No symptoms or risk factors identified. Fall Risk None identified. Assessment: 11:56 General: Appears in no apparent distress. Cardiovascular: Rhythm is regular. dm5 Respiratory: Airway is patent Respiratory effort is even, Breath sounds with wheezes bilaterally. 12:37 Reassessment: Patient appears in no apparent distress at this time. Patient and/or ch family updated on plan of care and expected duration. Pain level reassessed. General: Appears in no apparent distress. unkempt, Behavior is cooperative. Pain: Denies pain. Neuro: Level of Consciousness is awake, alert, obeys commands, Oriented to person, place, Assembler are equal bilaterally Moves all extremities. Full function Gait is unsteady, Speech is slurred, Facial symmetry appears normal, Facial symmetry: tongue is midline. GI: Abdomen is flat, non-distended, Bowel sounds present X 4 quads. Abd is soft and non tender X 4 quads. : No signs and/or symptoms were reported regarding the genitourinary system. Derm: Skin is pink, warm \\T\\ dry. 13:30 Reassessment: Patient appears in no apparent distress at this time. Patient and/or ca1 family updated on plan of care and expected duration. Pain level reassessed. Pt sleeping on bed, easily awaken with verbal stimuli. 14:30 Reassessment: Patient appears in no apparent distress at this time. Patient and/or ca1 family updated on plan of care and expected duration. Pain level reassessed. Patient is alert, oriented x 3, equal unlabored respirations, skin warm/dry/pink. 15:30 Reassessment: Patient appears in no apparent distress at this time. Patient and/or ca1 family updated on plan of care and expected duration. Pain level reassessed. Patient is alert, oriented x 3, equal unlabored respirations, skin warm/dry/pink. 16:11 Reassessment: Pt sleeping comfortably. Easily awaken. ca1 17:00 Reassessment: Patient appears in no apparent distress at this time. Patient and/or ca1 family updated on plan of care and expected duration. Pain level reassessed. Patient is alert, oriented x 3, equal unlabored respirations, skin warm/dry/pink. 18:00 Reassessment: Patient appears in no apparent distress at this time. Patient and/or ca1 family updated on plan of care and expected duration. Pain level reassessed. Patient is alert, oriented x 3, equal unlabored respirations, skin warm/dry/pink. 18:57 Reassessment: Patient appears in no apparent distress at this time. Patient and/or ca1 family updated on plan of care and expected duration. Pain level reassessed. Patient is alert, oriented x 3, equal unlabored respirations, skin warm/dry/pink. 20:15 Reassessment: Patient appears in no apparent distress at this time. Patient and/or ca1 family updated on plan of care and expected duration. Pain level reassessed. Patient is alert, oriented x 3, equal unlabored respirations, skin warm/dry/pink. 21:20 Reassessment: Patient appears in no apparent distress at this time. Patient and/or ca1 family updated on plan of care and expected duration. Pain level reassessed. Patient is alert, oriented x 3, equal unlabored respirations, skin warm/dry/pink. 21:27 Reassessment: Pt urinated all over himself and all wet. Pt agreed to change into a ca1 gown. Sheets removed and replaced with clean ones. 23:00 Reassessment: Patient appears in no apparent distress at this time. Patient and/or ca1 family updated on plan of care and expected duration. Pain level reassessed. Patient is alert, oriented x 3, equal unlabored respirations, skin warm/dry/pink. 11/15 00:05 Reassessment: Patient appears in no apparent distress at this time. Patient and/or ca1 family updated on plan of care and expected duration. Pain level reassessed. Patient is alert, oriented x 3, equal unlabored respirations, skin warm/dry/pink. Repeat ETOH ordered and sent to lab. Vital Signs: 11/14 11:52 BP 130 / 80; Pulse 84; Resp 20; Temp 99(O); Pulse Ox 94% ; Pain 0/10; dm5 12:43 BP 111 / 78; Pulse 76; Resp 14; Temp 98.4; Pulse Ox 99% on R/A; Pain 0/10; ch 13:15 BP 100 / 65; Pulse 87; Resp 18; Pulse Ox 95% on R/A; ca1 14:00 BP 93 / 62; Pulse 87; Resp 18; Pulse Ox 96% on R/A; ca1 14:45 BP 94 / 73; Pulse 87; Resp 18; Pulse Ox 95% on R/A; ca1 15:30 BP 119 / 73; Pulse 85; Resp 18; Pulse Ox 95% on R/A; ca1 16:15 BP 103 / 83; Pulse 88; Resp 18; Pulse Ox 95% on R/A; ca1 17:00 BP 108 / 69; Pulse 71; Resp 18; Pulse Ox 96% on R/A; ca1 17:45 BP 117 / 86; Pulse 86; Resp 18; Pulse Ox 95% on R/A; ca1 18:30 BP 116 / 75; Pulse 67; Resp 18; Pulse Ox 96% on R/A; ca1 19:20 BP 121 / 81; Pulse 75; Resp 19; Pulse Ox 95% on R/A; ca1 21:30 BP 137 / 81; Pulse 76; Resp 19; Pulse Ox 97% on R/A; ca1 22:15 BP 132 / 82; Pulse 74; Resp 18; Pulse Ox 95% on R/A; ca1 23:00 BP 101 / 58; Pulse 70; Resp 19; Pulse Ox 95% on R/A; ca1 11/15 00:09 BP 108 / 67; Pulse 80; Resp 18; Pulse Ox 98% on R/A; ca1 ED Course: 11/14 11:43 Patient arrived in ED. dm5 11:44 Rodolfo Haro PA is PHCP. cp 11:44 Bandar Meza MD is Attending Physician. cp 11:50 Triage completed. dm5 11:52 Arm band placed on right wrist. dm5 11:56 Patient has correct armband on for positive identification. dm5 12:15 No apparent distress. Resting quietly. ch 12:15 No provider procedures requiring assistance completed. Inserted saline lock: 18 gauge ch in right forearm, using aseptic technique. Blood collected. 12:37 Nikki Miranda, RN is Primary Nurse. ch 12:43 Pulse ox on. NIBP on. Warm blanket given. ch 12:49 EKG done, by technician automated equipment. reviewed by Rodolfo THIBODEAUX. at1 18:51 PHCP role handed off by Rodolfo Haro PA kb 18:51 Teresa Mendoza FNP-C is PHCP. kb 11/15 00:36 IV discontinued, intact, bleeding controlled, No redness/swelling at site. Pressure ca1 dressing applied. Administered Medications: 11/14 12:16 Drug: AtroVENT Aerosol 0.5 mg Route: Inhalation; ch 12:20 Drug: Albuterol 2.5 mg Route: Inhalation; 13:30 Drug: Banana Bag - (NS 0.9% 1000 ml, foLIC Acid 1 mg, Thiamine 100 mg, Multivitamin 1 ca1 amp) Route: IV; Rate: 200 ml/hr; Site: right forearm; 18:54 Follow up: Response: No adverse reaction; IV Status: Completed infusion ca1 20:23 Drug: NS 0.9% 1000 ml Route: IV; Rate: 1000 ml; Site: right forearm; ca1 02 00:36 Follow up: Response: No adverse reaction; IV Status: Completed infusion ca1 Outcome: 00:19 Discharge ordered by . colleen 00:35 Discharged to home via wheelchair. ca1 00:35 Condition: stable 00:35 Discharge instructions given to patient, Instructed on discharge instructions, follow up and referral plans. Demonstrated understanding of instructions, follow-up care. 00:41 Patient left the ED. ca1 Signatures: Teresa Mendoza, SURGICAL TECHNOLOGIST-C SURGICAL TECHNOLOGIST-Nikki Fuentes, RN RN Erum Yusuf, RN RN dm5 Alfreda Anderson, alterations expert EKG Tat1 Rodolfo Haro PA PA cp Myra Brizuela RN RN tl3 Ashlie Marino RN RN ca1 Corrections: (The following items were deleted from the chart) 11/14 15:31 15:29 BP 164 / 49; Pulse 50bpm; Resp 18bpm; Pulse Ox 98% RA; tl3 tl3 15:31 15:29 Reassessment: Patient appears in no apparent distress at this time. No changes tl3 from previously documented assessment. Patient and/or family updated on plan of care and expected duration. Pain level reassessed. Patient is alert, oriented x 3, equal unlabored respirations, skin warm/dry/pink. pt being discharged tl3
--- NOTE | 2018-11-15 00:21 | EDPHYS ---
Physician Documentation [facility] Name: Jewel Cespedes Age: 53 yrs Sex: Male : 1965 Arrival Date: 11/14/2018 Time: 11:43 Bed 30 Private MD: ED Physician Bandar Meza HPI: 11/14 12:15 This 53 yrs old Male presents to ER via EMS with complaints of Shortness Of cp Breath - ETOH on board. 12:15 The patient has shortness of breath at rest. Onset: The symptoms/episode began/occurred cp today. Duration: The symptoms are continuous. Associated signs and symptoms: Pertinent negatives: chest pain, diaphoresis, fever. Severity of symptoms: in the emergency department the symptoms are unchanged despite EMS interventions. Historical: - Allergies: 11:52 NKA; dm5 - PMHx: 12:43 Anxiety; Hypertension; Hypothyroidism; Myocardial infarction; Asthma; ch - Immunization history:: Adult Immunizations not up to date. - Social history:: Smoking status: Patient uses tobacco products. - Ebola Screening: : Patient negative for fever greater than or equal to 101.5 degrees Fahrenheit, and additional compatible Ebola Virus Disease symptoms Patient denies exposure to infectious person Patient denies travel to an Ebola-affected area in the 21 days before illness onset No symptoms or risks identified at this time. ROS: 12:20 Constitutional: Negative for body aches, chills, fever, poor PO intake. cp 12:20 Eyes: Negative for injury, pain, redness, and discharge. cp 12:20 ENT: Negative for drainage from ear(s), ear pain, sore throat, difficulty swallowing, difficulty handling secretions, hoarseness. 12:20 Cardiovascular: Negative for chest pain, edema, palpitations. 12:20 Respiratory: Positive for shortness of breath, Negative for cough, wheezing. 12:20 Abdomen/GI: Negative for abdominal pain, nausea, vomiting, and diarrhea. 12:20 Back: Negative for pain at rest, pain with movement, radiated pain. 12:20 Skin: Negative for cellulitis, rash. 12:20 Neuro: Negative for altered mental status, dizziness, headache, weakness. 12:20 Psych: Positive for alcohol dependence, Negative for auditory hallucinations, visual hallucinations, homicidal ideation, suicidal ideation. 12:20 All other systems are negative. Exam: 12:25 Constitutional: The patient appears in no acute distress, alert, awake, cp non-diaphoretic, non-toxic, well developed, well nourished. 12:25 Head/Face: Normocephalic, atraumatic. cp 12:25 Eyes: Periorbital structures: appear normal, Pupils: equal, round, and reactive to light and accomodation, Conjunctiva: normal, no exudate, no injection, Sclera: no appreciated abnormality, Lids and lashes: appear normal, bilaterally. 12:25 ENT: External ear(s): are unremarkable, Ear canal(s): are normal, clear, TM's: are normal, no evidence of bulging, no erythema, Nose: is normal, Mouth: Lips: moist, Oral mucosa: moist, Posterior pharynx: Airway: no evidence of obstruction, patent. 12:25 Neck: ROM/movement: is normal, is supple, without pain, no range of motions limitations, no nuchal rigidity. 12:25 Chest/axilla: Inspection: normal, Palpation: is normal, no crepitus, no tenderness. 12:25 Cardiovascular: Rate: normal, Rhythm: regular, Pulses: Pulses are 2+ in right radial artery and left radial artery. Edema: is not appreciated, JVD: is not appreciated. 12:25 Respiratory: the patient does not display signs of respiratory distress, Respirations: normal, no use of accessory muscles, no retractions, no splinting, no tachypnea, labored breathing, is not present, Breath sounds: decreased breath sounds, are not appreciated, stridor, is not appreciated, wheezing: that is mild, is heard diffusely. 12:25 Abdomen/GI: Inspection: abdomen appears normal, Bowel sounds: active, all quadrants, Palpation: abdomen is soft and non-tender, in all quadrants, voluntary guarding, is not appreciated, involuntary guarding, is not appreciated. 12:25 Back: pain, is absent, ROM is normal. 12:25 Skin: cellulitis, is not appreciated, no rash present. 12:25 Neuro: Orientation: to person, place, situation, Mentation: slow to respond, Motor: moves all fours, strength is normal. 12:25 Psych: Behavior/mood is cooperative, Affect is Patient has no thoughts/intents to harm self or others. Judgement / Insight is impaired. 13:00 ECG was reviewed by the Attending Physician. cp Vital Signs: 11:52 BP 130 / 80; Pulse 84; Resp 20; Temp 99(O); Pulse Ox 94% ; Pain 0/10; dm5 12:43 BP 111 / 78; Pulse 76; Resp 14; Temp 98.4; Pulse Ox 99% on R/A; Pain 0/10; ch 13:15 BP 100 / 65; Pulse 87; Resp 18; Pulse Ox 95% on R/A; ca1 14:00 BP 93 / 62; Pulse 87; Resp 18; Pulse Ox 96% on R/A; ca1 14:45 BP 94 / 73; Pulse 87; Resp 18; Pulse Ox 95% on R/A; ca1 15:30 BP 119 / 73; Pulse 85; Resp 18; Pulse Ox 95% on R/A; ca1 16:15 BP 103 / 83; Pulse 88; Resp 18; Pulse Ox 95% on R/A; ca1 17:00 BP 108 / 69; Pulse 71; Resp 18; Pulse Ox 96% on R/A; ca1 17:45 BP 117 / 86; Pulse 86; Resp 18; Pulse Ox 95% on R/A; ca1 18:30 BP 116 / 75; Pulse 67; Resp 18; Pulse Ox 96% on R/A; ca1 19:20 BP 121 / 81; Pulse 75; Resp 19; Pulse Ox 95% on R/A; ca1 21:30 BP 137 / 81; Pulse 76; Resp 19; Pulse Ox 97% on R/A; ca1 22:15 BP 132 / 82; Pulse 74; Resp 18; Pulse Ox 95% on R/A; ca1 23:00 BP 101 / 58; Pulse 70; Resp 19; Pulse Ox 95% on R/A; ca1 11/15 00:09 BP 108 / 67; Pulse 80; Resp 18; Pulse Ox 98% on R/A; ca1 MDM: 11/14 11:44 Patient medically screened. cp 12:30 Differential diagnosis: CHF exacerbation, Chronic Obstructive Pulmonary Disease cp Myocardial Infarction pneumonia, Pneumothorax pulmonary edema, Pulmonary Embolism Unstable Angina. 14:00 Data reviewed: vital signs, nurses notes, lab test result(s), EKG. cp 11/15 00:19 Data interpreted: Pulse oximetry: on room air is 98 %. Interpretation: normal. kb Counseling: I had a detailed discussion with the patient and/or guardian regarding: the historical points, exam findings, and any diagnostic results supporting the discharge/admit diagnosis, lab results, the need for outpatient follow up, a family practitioner, to return to the emergency department if symptoms worsen or persist or if there are any questions or concerns that arise at home. 11/14 12:10 Order name: ETOH Level; Complete Time: 13:38 cp 11/14 12:10 Order name: Basic Metabolic Panel; Complete Time: 13:38 cp 11/14 12:10 Order name: CBC with Diff; Complete Time: 13:38 cp 11/14 12:10 Order name: Hepatic Function; Complete Time: 13:38 cp 11/14 12:10 Order name: PT-INR; Complete Time: 13:38 cp 11/14 12:10 Order name: Ptt, Activated; Complete Time: 13:38 cp 11/14 12:10 Order name: Urine Drug Screen; Complete Time: 13:38 cp 11/14 12:10 Order name: Troponin I; Complete Time: 13:38 cp 11/14 12:27 Order name: Urine Dipstick--Ancillary (enter results); Complete Time: 13:38 bd 11/14 18:42 Order name: ETOH Level; Complete Time: 20:07 cp 11/14 23:33 Order name: ETOH Level; Complete Time: 00:18 kb 11/14 12:10 Order name: EKG; Complete Time: 12:11 cp 11/14 12:10 Order name: EKG - Nurse/Tech; Complete Time: 15:02 cp 11/14 12:10 Order name: IV Saline Lock; Complete Time: 12:46 cp 11/14 12:10 Order name: Labs collected and sent; Complete Time: 12:47 cp 11/14 12:10 Order name: Urine Dipstick-Ancillary (obtain specimen); Complete Time: 12:47 cp EC/04 13:00 Rate is 90 beats/min. Rhythm is regular. [place] interval is normal. QRS interval is normal. cp QT interval is normal. Interpreted by me. Reviewed by me. Administered Medications: 12:16 Drug: AtroVENT Aerosol 0.5 mg Route: Inhalation; ch 12:20 Drug: Albuterol 2.5 mg Route: Inhalation; ch 13:30 Drug: Banana Bag - (NS 0.9% 1000 ml, foLIC Acid 1 mg, Thiamine 100 mg, Multivitamin 1 ca1 amp) Route: IV; Rate: 200 ml/hr; Site: right forearm; 18:54 Follow up: Response: No adverse reaction; IV Status: Completed infusion ca1 20:23 Drug: NS 0.9% 1000 ml Route: IV; Rate: 1000 ml; Site: right forearm; ca1 11/15 00:36 Follow up: Response: No adverse reaction; IV Status: Completed infusion ca1 Disposition: 17:17 Co-signature as Attending Physician, Bandar Meza MD. rn Disposition: 11/15/18 00:19 Discharged to Home. Impression: Alcohol abuse with intoxication. - Condition is Stable. - Discharge Instructions: Alcohol Intoxication, [id number]. - Medication Reconciliation Form, Thank You Letter, Antibiotic Education, Prescription Opioid Use form. - Follow up: Emergency Department; When: As needed; Reason: Worsening of condition. Follow up: Private Physician; When: 2 - 3 days; Reason: Recheck today's complaints, Continuance of care, Re-evaluation by your physician. Signatures: Dispatcher [employer] EDTeresa Solitario, CARMEL-C [employer]IL[employer] CAR PAINTER-CkNikki Melgar, RN RN Erum Yusuf RN RN dmBandar Granados MD MD rn Page, Corey, PA PA cp Acob, Cheryl RN RN ca1 Corrections: (The following items were deleted from the chart) 00:41 00:19 11/15/2018 00:19 Discharged to Home. Impression: Alcohol abuse with intoxication. ca1 Condition is Stable. Forms are Medication Reconciliation Form, Thank You Letter, Antibiotic Education, Prescription Opioid Use. Follow up: Emergency Department; When: As needed; Reason: Worsening of condition. Follow up: Private Physician; When: 2 - 3 days; Reason: Recheck today's complaints, Continuance of care, Re-evaluation by your physician. kb
[2018-11-15 01:21] VITALS: TEMP 98.4
[2018-11-15 01:39] VITALS: BP 108/67; O2SAT 98
== END 2018-11-15 00:41 | disposition home or self-care (01) ==
LOC: ER 11:41
DX: F10.129 Alcohol abuse with intoxication, unspecified (principal); Z72.0 Tobacco use
CPT/HCPCS: 36415; 80048; 80076; 80307; 80320; 81003; 84484; 85025; 85610; 85730; 93005; 96361; 96365; 96366; 99285; J3411; J7030

== ENCOUNTER 2019-06-12 12:02 | Emergency (ER) | payer MEDICAID ==
--- OUTSIDE RECORDS SUMMARY | 2019-06-12 12:05 | XMS REPORT ---
:1965 [facility] Address [address] [place] [address] Care Team Providers Name Role Phone GERI LAWTON Unavailable Unavailable Problems This patient has no known problems. Allergies, Adverse Reactions, Alerts This patient has no known allergies or adverse reactions. Medications This patient has no known medications. Results Test Description Test Time Test Comments Text Results Atomic Results Result Comments MAGNESIUM 2017-12-15 06:32:00 Test Item Value Reference Range Comments MAGNESIUM (BEAKER) (test vcrl=661) 1.6 mg/dL 1.6-2.6 BASIC METABOLIC [id number] 06:32:00 Test Item Value Reference Range Comments SODIUM (BEAKER) (test 139 meq/L 136-145 gibm=746) POTASSIUM (BEAKER) (test 4.1 meq/L 3.5-5.1 oflk=567) CHLORIDE (BEAKER) (test 105 meq/L 98-107 bppl=148) CO2 (BEAKER) (test 25 meq/L 22-29 esrg=706) BLOOD UREA NITROGEN 9 mg/dL 7-21 (BEAKER) (test humn=941) CREATININE (BEAKER) (test 0.75 mg/dL 0.57-1.25 xrng=491) GLUCOSE RANDOM (BEAKER) 84 mg/dL 70-105 (test syex=339) CALCIUM (BEAKER) (test 9.1 mg/dL 8.4-10.2 iozj=572) EGFR (BEAKER) (test 109 mL/min/1.73 sq m ESTIMATED GFR IS NOT ukoo=7790) ACCURATE CREATININE CLEARANCE IN PREDICTING GLOMERULAR FILTRATION RATE. ESTIMATED GFR IS NOT APPLICABLE FOR DIALYSIS PATIENTS. CBC (HEMOGRAM ONLY)2017-12-15 06:08:00 Test Item Value Reference Range Comments WHITE BLOOD CELL COUNT (BEAKER) (test mggs=664) 4.5 K/ L 3.5-10.5 RED BLOOD CELL COUNT (BEAKER) (test axvd=195) 4.28 M/ L 4.63-6.08 HEMOGLOBIN (BEAKER) (test wuqx=043) 12.7 GM/DL 13.7-17.5 HEMATOCRIT (BEAKER) (test tunu=207) 39.2 % 40.1-51.0 MEAN CORPUSCULAR VOLUME (BEAKER) (test zwsf=406) 91.6 fL 79.0-92.2 MEAN CORPUSCULAR HEMOGLOBIN (BEAKER) (test 29.7 pg 25.7-32.2 tvhj=952) MEAN CORPUSCULAR HEMOGLOBIN CONC (BEAKER) (test 32.4 GM/DL 32.3-36.5 yjes=143) RED CELL DISTRIBUTION WIDTH (BEAKER) (test 14.1 % 11.6-14.4 wbdn=671) PLATELET COUNT (BEAKER) (test dnwf=259) 149 K/CU MM 150-450 MEAN PLATELET VOLUME (BEAKER) (test gpjw=214) 10.2 fL 9.4-12.4 NUCLEATED RED BLOOD CELLS (BEAKER) (test 0 /100 WBC 0-0 xfzl=366) TROPONIN [id number] 23:05:00 Test Item Value Reference Range Comments TROPONIN I (BEAKER) (test hmuj=532) 0.99 ng/mL 0.00-0.03 Troponin I (TnI) levels [...] failure, acidosis, acute neurological disease, and persistent tachyarrhythmia.[id number] 05:14:00 Test Item Value Reference Range Comments MAGNESIUM (BEAKER) (test umpg=467) 1.7 mg/dL 1.6-2.6 BASIC METABOLIC [id number] 05:14:00 Test Item Value Reference Range Comments SODIUM (BEAKER) (test 137 meq/L 136-145 mksk=935) POTASSIUM (BEAKER) (test 4.0 meq/L 3.5-5.1 qfoh=907) CHLORIDE (BEAKER) (test 104 meq/L 98-107 yoyv=999) CO2 (BEAKER) (test 26 meq/L 22-29 yacr=916) BLOOD UREA NITROGEN 7 mg/dL 7-21 (BEAKER) (test mvgy=321) CREATININE (BEAKER) (test 0.86 mg/dL 0.57-1.25 ouew=099) GLUCOSE RANDOM (BEAKER) 84 mg/dL 70-105 (test lnxn=035) CALCIUM (BEAKER) (test 9.0 mg/dL 8.4-10.2 gmkb=758) EGFR (BEAKER) (test 93 mL/min/1.73 sq m ESTIMATED GFR IS NOT kszj=0859) ACCURATE CREATININE CLEARANCE IN PREDICTING GLOMERULAR FILTRATION RATE. ESTIMATED GFR IS NOT APPLICABLE FOR DIALYSIS PATIENTS. CBC (HEMOGRAM ONLY)2017-12-14 04:38:00 Test Item Value Reference Range Comments WHITE BLOOD CELL COUNT (BEAKER) (test harx=870) 3.7 K/ L 3.5-10.5 RED BLOOD CELL COUNT (BEAKER) (test aijc=358) 4.13 M/ L 4.63-6.08 HEMOGLOBIN (BEAKER) (test btsp=093) 12.2 GM/DL 13.7-17.5 HEMATOCRIT (BEAKER) (test dxmu=976) 37.6 % 40.1-51.0 MEAN CORPUSCULAR VOLUME (BEAKER) (test eivr=931) 91.0 fL 79.0-92.2 MEAN CORPUSCULAR HEMOGLOBIN (BEAKER) (test 29.5 pg 25.7-32.2 tcpy=178) MEAN CORPUSCULAR HEMOGLOBIN CONC (BEAKER) (test 32.4 GM/DL 32.3-36.5 gjik=320) RED CELL DISTRIBUTION WIDTH (BEAKER) (test 13.9 % 11.6-14.4 ikpc=062) PLATELET COUNT (BEAKER) (test diid=137) 131 K/CU MM 150-450 MEAN PLATELET VOLUME (BEAKER) (test yzrj=902) 10.1 fL 9.4-12.4 NUCLEATED RED BLOOD CELLS (BEAKER) (test 0 /100 WBC 0-0 kxay=640) [id number] 09:35:00 Test Item Value Reference Range Comments ACTIVATED CLOTTING TIME 279 sec TESTED AT [facility] [address] (BEAKER) (test ujqh=393) [place] [address] [id number] 09:35:00 Test Item Value Reference Range Comments ACTIVATED CLOTTING TIME 246 sec TESTED AT [place] [id number] (BEAKER) (test ostp=577) [place] [address] [id number] 08:47:00 Test Item Value Reference Range Comments ACTIVATED CLOTTING TIME 114 sec TESTED AT [place] [address] [facility] ([facility] (test ajeh=756) [place] [address] [id number] 06:45:00 Test Item Value Reference Range Comments MAGNESIUM (BEAKER) (test uphf=399) 1.9 mg/dL 1.6-2.6 BASIC METABOLIC [id number] 06:45:00 Test Item Value Reference Range Comments SODIUM (BEAKER) (test 139 meq/L 136-145 jmek=989) POTASSIUM (BEAKER) (test 3.9 meq/L 3.5-5.1 nvht=803) CHLORIDE (BEAKER) (test 105 meq/L 98-107 onau=918) CO2 (BEAKER) (test 25 meq/L 22-29 nxbw=016) BLOOD UREA NITROGEN 11 mg/dL 7-21 (BEAKER) (test kony=751) CREATININE (BEAKER) (test 0.77 mg/dL 0.57-1.25 undw=138) GLUCOSE RANDOM (BEAKER) 84 mg/dL 70-105 (test jgnh=620) CALCIUM (BEAKER) (test 8.4 mg/dL 8.4-10.2 swhj=102) EGFR (BEAKER) (test 105 mL/min/1.73 sq m ESTIMATED GFR IS NOT oxpm=2980) ACCURATE CREATININE CLEARANCE IN PREDICTING GLOMERULAR FILTRATION RATE. ESTIMATED GFR IS NOT APPLICABLE FOR DIALYSIS PATIENTS. CBC (HEMOGRAM ONLY)2017-12-13 05:55:00 Test Item Value Reference Range Comments WHITE BLOOD CELL COUNT (BEAKER) (test eppa=195) 4.4 K/ L 3.5-10.5 RED BLOOD CELL COUNT (BEAKER) (test kdwk=019) 4.10 M/ L 4.63-6.08 HEMOGLOBIN (BEAKER) (test dmeh=619) 12.2 GM/DL 13.7-17.5 HEMATOCRIT (BEAKER) (test ftny=281) 37.4 % 40.1-51.0 MEAN CORPUSCULAR VOLUME (BEAKER) (test qonq=459) 91.2 fL 79.0-92.2 MEAN CORPUSCULAR HEMOGLOBIN (BEAKER) (test 29.8 pg 25.7-32.2 ffnw=664) MEAN CORPUSCULAR HEMOGLOBIN CONC (BEAKER) (test 32.6 GM/DL 32.3-36.5 pygb=663) RED CELL DISTRIBUTION WIDTH (BEAKER) (test 14.0 % 11.6-14.4 alhq=253) PLATELET COUNT (BEAKER) (test okcw=079) 128 K/CU MM 150-450 MEAN PLATELET VOLUME (BEAKER) (test mbse=623) 9.5 fL 9.4-12.4 NUCLEATED RED BLOOD CELLS (BEAKER) (test 0 /100 WBC 0-0 hinh=118) HEMOGLOBIN [id number] 23:29:00 Test Item Value Reference Range Comments HEMOGLOBIN A1C (BEAKER) (test alpc=926) 5.3 % 4.3-6.1 [id number] 15:58:00 Test Item Value Reference Range Comments ACTIVATED CLOTTING TIME 125 sec TESTED AT [address] ([facility]) (test jyfb=275) [place] [id number] T4, [id number] 14:56:00 Test Item Value Reference Range Comments FREE T4 (BEAKER) (test dncz=885) 0.94 ng/dL 0.70-1.48 [id number] 14:50:00 Test Item Value Reference Range Comments ACTIVATED CLOTTING TIME 136 sec TESTED AT [place] [address] [facility] (BEAKER) (test yhri=808) [place] [address] [id number] 14:25:00 Test Item Value Reference Range Comments ACTIVATED CLOTTING TIME 164 sec TESTED AT [address] ([facility]) (test cumg=802) [place] [id number] TSH/FREE T4 IF [id number] 14:25:00 Test Item Value Reference Range Comments THYROID STIMULATING HORMONE (BEAKER) (test 5.53 uIU/mL 0.35-4.94 zsoz=875) TROPONIN [id number] 14:09:00 Test Item Value Reference Range Comments TROPONIN I (BEAKER) (test vndi=343) 32.04 ng/mL 0.00-0.03 Troponin I (TnI) levels [...] and persistent tachyarrhythmia.CBC W/PLT COUNT & AUTO [id number] 14:07:00 Test Item Value Reference Range Comments WHITE BLOOD CELL COUNT (BEAKER) (test ykzt=973) 7.5 K/ L 3.5-10.5 RED BLOOD CELL COUNT (BEAKER) (test nfgt=947) 4.27 M/ L 4.63-6.08 HEMOGLOBIN (BEAKER) (test zish=714) 12.7 GM/DL 13.7-17.5 HEMATOCRIT (BEAKER) (test rcgk=307) 38.3 % 40.1-51.0 MEAN CORPUSCULAR VOLUME (BEAKER) (test grhs=370) 89.7 fL 79.0-92.2 MEAN CORPUSCULAR HEMOGLOBIN (BEAKER) (test 29.7 pg 25.7-32.2 ievv=164) MEAN CORPUSCULAR HEMOGLOBIN CONC (BEAKER) (test 33.2 GM/DL 32.3-36.5 juzm=627) RED CELL DISTRIBUTION WIDTH (BEAKER) (test 13.9 % 11.6-14.4 venm=919) PLATELET COUNT (BEAKER) (test xktd=972) 172 K/CU MM 150-450 MEAN PLATELET VOLUME (BEAKER) (test bdgw=972) 9.5 fL 9.4-12.4 NUCLEATED RED BLOOD CELLS (BEAKER) (test 0 /100 WBC 0-0 zohn=733) NEUTROPHILS RELATIVE PERCENT (BEAKER) (test 81 % xjhg=724) LYMPHOCYTES RELATIVE PERCENT (BEAKER) (test 10 % wdjh=418) MONOCYTES RELATIVE PERCENT (BEAKER) (test 8 % tazm=671) EOSINOPHILS RELATIVE PERCENT (BEAKER) (test 0 % uqhh=131) BASOPHILS RELATIVE PERCENT (BEAKER) (test 1 % yyih=886) NEUTROPHILS ABSOLUTE COUNT (BEAKER) (test 6.06 K/ L 1.78-5.38 jngx=665) LYMPHOCYTES ABSOLUTE COUNT (BEAKER) (test 0.78 K/ L 1.32-3.57 kail=802) MONOCYTES ABSOLUTE COUNT (BEAKER) (test 0.60 K/ L 0.30-0.82 waac=996) EOSINOPHILS ABSOLUTE COUNT (BEAKER) (test 0.00 K/ L 0.04-0.54 vmrf=443) BASOPHILS ABSOLUTE COUNT (BEAKER) (test 0.04 K/ L 0.01-0.08 ibth=430) IMMATURE GRANULOCYTES-RELATIVE PERCENT (BEAKER) 0 % 0-1 (test dbwk=8471) CREATINE KINASE (CK), TOTAL AND [id number] 14:06:00 Test Item Value Reference Range Comments CREATINE KINASE TOTAL (BEAKER) (test tspx=317) 336 U/L 29-200 CREATINE KINASE-MB (BEAKER) (test lqmm=466) 21.4 ng/mL 0.0-6.6 CREATINE KINASE-MB INDEX (BEAKER) (test rakl=025) 6.4 % CK-MB Reference Range:<6.7 Normal6.7-10.0 Borderline>10.0 AbnormalB-TYPE NATRIURETIC FACTOR (BNP)2017-12-12 14:05:00 Test Item Value Reference Range Comments B-TYPE NATRIURETIC PEPTIDE (BEAKER) (test vmxu=002) 25 pg/mL 0-100 [id number] 13:59:00 Test Item Value Reference Range Comments PHOSPHORUS (BEAKER) (test lemk=659) 3.4 mg/dL 2.3-4.7 [id number] 13:59:00 Test Item Value Reference Range Comments MAGNESIUM (BEAKER) (test iucc=866) 1.9 mg/dL 1.6-2.6 COMPREHENSIVE METABOLIC [id number] 13:59:00 Test Item Value Reference Range Comments TOTAL PROTEIN (BEAKER) 6.5 gm/dL 6.0-8.3 (test wpgl=038) ALBUMIN (BEAKER) (test 3.8 g/dL 3.5-5.0 cvrs=3388) ALKALINE PHOSPHATASE 72 U/L 40-150 (BEAKER) (test psxv=150) BILIRUBIN TOTAL (BEAKER) 1.1 mg/dL 0.2-1.2 (test eeaz=889) SODIUM (BEAKER) (test 137 meq/L 136-145 idco=212) POTASSIUM (BEAKER) (test 4.5 meq/L 3.5-5.1 pmmx=214) CHLORIDE (BEAKER) (test 103 meq/L 98-107 ndmu=363) CO2 (BEAKER) (test 23 meq/L 22-29 cmig=573) BLOOD UREA NITROGEN 12 mg/dL 7-21 (BEAKER) (test xzem=436) CREATININE (BEAKER) (test 0.78 mg/dL 0.57-1.25 hxew=176) GLUCOSE RANDOM (BEAKER) 79 mg/dL 70-105 (test fdtl=692) CALCIUM (BEAKER) (test 8.5 mg/dL 8.4-10.2 isio=601) AST (SGOT) (BEAKER) (test 55 U/L 5-34 ikjp=085) ALT (SGPT) (BEAKER) (test 18 U/L 6-55 guoj=410) EGFR (BEAKER) (test 104 mL/min/1.73 sq ESTIMATED GFR IS NOT zdej=0055) m ACCURATE CREATININE CLEARANCE IN PREDICTING GLOMERULAR FILTRATION RATE. ESTIMATED GFR IS NOT APPLICABLE FOR DIALYSIS PATIENTS. LIPID [id number] 13:59:00 Test Item Value Reference Range Comments TRIGLYCERIDES (BEAKER) (test ixkg=244) 29 mg/dL CHOLESTEROL (BEAKER) (test fbkw=748) 148 mg/dL HDL CHOLESTEROL (BEAKER) (test doob=495) 86 mg/dL LDL CHOLESTEROL CALCULATED (BEAKER) (test 56 mg/dL zenw=511) Triglyceride Reference Range: Low Risk <150 Borderline 150- 199 High Risk 200-499 Very High Risk >=500Cholesterol Reference Range: Low Risk <200 Borderline 200-239 High Risk > 240HDL Cholesterol Reference Range: Low Risk >=60 High Risk <40LDL Cholesterol Reference Range: Optimal <100 Near Optimal 100-129 Borderline 130-159 High 160-189 Very High >=190
--- OUTSIDE RECORDS SUMMARY | 2019-06-12 12:05 | XMS REPORT | Clinical Summary ---
:1965 Author Organization [facility] Address [address] [place] [address] Care Team Providers Name Role Phone Sharpless Primary Care Provider Unavailable Allergies No Known Allergies Medications Medication Sig Dispensed Refills Start Date End Date Status ALPRAZolam (XANAX) 1 Take 1 mg by 0 Active MG tablet mouth every night as needed for Anxiety. levothyroxine Take 137 mcg by 0 Active (SYNTHROID, mouth Every LEVOTHROID) 137 MCG morning on an tablet empty stomach. pantoprazole Take 1 tablet 30 tablet 0 12/16/2017 Active (PROTONIX) 40 MG (40 mg total) tablet by mouth daily. atorvastatin (LIPITOR) TAKE 1 TABLET 30 tablet 0 03/11/2018 Active 80 MG tablet BY MOUTH EVERY DAY atorvastatin (LIPITOR) Take 2 tablets 30 tablet 0 12/16/2017 12/16/2018 40 MG tablet (80 mg total) by mouth daily. lisinopril Take 1 tablet 30 tablet 0 12/16/2017 12/16/2018 (PRINIVIL,ZESTRIL) 5 (5 mg total) by MG tablet mouth daily. folic acid (FOLVITE) 1 Take 1 tablet 30 tablet 0 12/16/2017 12/16/2018 MG tablet (1 mg total) by mouth daily. aspirin 81 MG EC Take 1 tablet 30 tablet 0 12/16/2017 12/16/2018 tablet (81 mg total) by mouth daily. clopidogrel (PLAVIX) Take 1 tablet 30 tablet 0 12/16/2017 12/16/2018 75 mg tablet (75 mg total) by mouth daily. nitroglycerin As directed. 90 tablet 0 12/15/2017 12/15/2018 (NITROSTAT) 0.4 MG SL tablet thiamine 100 MG tablet Take 1 tablet 30 tablet 0 12/15/2017 12/15/2018 (100 mg total) by mouth daily. Active Problems Problem Noted Date ETOH abuse 12/13/2017 Tobacco abuse 12/13/2017 ST elevation myocardial infarction involving right coronary artery 12/12/2017 Alcoholism /alcohol abuse 12/12/2017 Hypothyroidism 12/12/2017 Chronic anemia 12/12/2017 Anxiety disorder 12/12/2017 Acute pain 12/12/2017 Insomnia 12/12/2017 Cigarette nicotine dependence 12/12/2017 Vitamin deficiency 12/12/2017 Immunizations Name Dates Previously Given Next Due [...] travel history available. Last Filed Vital Signs Not on file Plan of Treatment Health Maintenance Due Date Last Done Comments INFLUENZA VACCINE 07/11/2018 12/13/2017 Implants Implanted Type Area Baffle Installer Device Shelf Model / Identifier Expiration Serial / Date Lot Synergy Stents-C N/A: [employer] 06/11/2018 [id number] / Implanted: Qty: 1 on 12/12/2017 by Odessa Busch MD [employer] [employer] / [id number] Results Not on fileafter 06/11/2018 Insurance Payer Benefit Plan / Group Subscriber ID Type Phone Address [place]
[2019-06-12 14:49] LABS: Urine Specific Gravity <1.005 (1.005-1.030)
[2019-06-12 14:50] LABS: Urine Blood NEGATIVE (NEG); Urine Glucose NEGATIVE (NEG); Urine Protein NEGATIVE (NEG)
[2019-06-12 15:00] LABS: Barbiturates NEGATIVE (NEGATIVE); Benzodiazepines NEGATIVE (NEGATIVE); Cocaine NEGATIVE (NEGATIVE); METHAMPHETAM NEGATIVE (NEGATIVE); Methadone NEGATIVE (NEGATIVE); Opiates NEGATIVE (NEGATIVE); Phencyclidine NEGATIVE (NEGATIVE); THC Cannibis NEGATIVE (NEGATIVE)
[2019-06-12 15:01] LABS: Absolute Lymphocytes (CBC) 0.8 K/uL (0.7-4.9); Basophils % 1.1 % (0-1.3); Hematocrit 40.9 % (39.6-49.0); MPV 7.2 fL (7.6-11.3); RBC Red Blood Cell Count 4.39 M/uL (4.33-5.43)
[2019-06-12 15:02] LABS: Protime INR 0.86
[2019-06-12 15:14] LABS: ALT/SGPT 80 U/L (12-78); AST/SGOT 105 U/L (15-37); Albumin 4.1 g/dL (3.4-5.0); Alkaline Phosphatase 68 U/L (45-117); BUN Blood Urea Nitrogen 6 mg/dL (7-18); Bicarbonate 26 mmol/L (21-32); Bilirubin Direct 0.2 mg/dL (0-0.2); Bilirubin Total 0.3 mg/dL (0.2-1.0); Glucose Level 75 mg/dL (74-106); Potassium 3.7 mmol/L (3.5-5.1); Protein, Total 7.8 g/dL (6.4-8.2); Sodium Level 143 mmol/L (136-145)
[2019-06-12 15:29] LABS: Blood Morphology Comment NOT SEEN (NOT SEEN); Platelet Estimate ADEQ; Urine White Blood Cell Casts OK
--- NOTE | 2019-06-12 19:55 | ER ---
Nurse's Notes [facility] Name: Jewel Cespedes Age: 53 yrs Sex: Male : 1965 Arrival Date: 06/12/2019 Time: 12:07 Bed 15 Private MD: Diagnosis: Alcohol abuse with intoxication Presentation: 06/12 12:07 Presenting complaint: EMS states: Called out for ETOH abuse, EMS instructed pt he could la1 not be transported to rehab, family called and stated they could not help. After learning they could not help he grabbed a kitchen knife and put it to his neck. EMS grabbed knife and disposed of it. Transition of care: patient was not received from another setting of care. Onset of symptoms was June 12, 2019. Risk Assessment: Do you want to hurt yourself or someone else? Patient reports no desire to harm self or others. Initial Sepsis Screen: Does the patient meet any 2 criteria? No. Patient's initial sepsis screen is negative. Does the patient have a suspected source of infection? No. Patient's initial sepsis screen is negative. Care prior to arrival: None. 12:07 Method Of Arrival: Ambulatory la1 12:07 Acuity: KAREN 2 la1 Triage Assessment: 12:35 General: Appears in no apparent distress. comfortable, Behavior is drowsy. Pain: Denies bp pain. EENT: No deficits noted. Neuro: Speech is slurred. Cardiovascular: No deficits noted. Respiratory: No deficits noted. GI: No signs and/or symptoms were reported involving the gastrointestinal system. : No signs and/or symptoms were reported regarding the genitourinary system. Derm: No deficits noted. Musculoskeletal: No deficits noted. Historical: - Allergies: 12:33 NKA; la1 - PMHx: 12:33 Asthma; Anxiety; Hypertension; Hypothyroidism; Myocardial infarction; Alcoholism; la1 Schizophrenia; - Immunization history:: Adult Immunizations up to date. - Social history:: Smoking status: Patient uses tobacco products, smokes one pack cigarettes per day. - Ebola Screening: : No symptoms or risks identified at this time. Screenin:34 Abuse screen: Denies threats or abuse. Nutritional screening: No deficits noted. la1 Tuberculosis screening: No symptoms or risk factors identified. Fall Risk None identified. Assessment: 12:33 Reassessment: Pt states he does not want to hurt himself, states "I dont want to know la1 why I did that with the knife earlier". General: Appears in no apparent distress. Behavior is calm, cooperative. General: Smells of alcohol. Pain: Denies pain. Neuro: Level of Consciousness is awake, alert, obeys commands, Oriented to person, place, situation. Cardiovascular: Heart tones S1 S2 present Capillary refill < 3 seconds. Respiratory: Airway is patent Trachea Respiratory effort is even, unlabored, Respiratory pattern is regular, symmetrical, Breath sounds are clear bilaterally. GI: Abdomen is round non-distended. : No signs and/or symptoms were reported regarding the genitourinary system. 13:23 Reassessment: Patient appears in no apparent distress at this time. No changes from la1 previously documented assessment. Patient and/or family updated on plan of care and expected duration. Pain level reassessed. 14:42 Reassessment: RECD PT FROM [facility]. 53YO WM P/W ETOH INTOXICATION. PER EMS AND FAMILY, bp PT HAS H/O EXPRESSING SI WHILE INTOXICATED AND DENYING WHEN SOBER. SOBRIETY PENDING. 16:31 Reassessment: ETOH REDRAWN AND SENT. PT CONTINUES TO REST QUIETLY, SITTER AT B/S. bp 19:05 Reassessment: Patient appears in no apparent distress at this time. Patient and/or jb4 family updated on plan of care and expected duration. Pain level reassessed. PT is resting in bed with eyes closed respirations are even and unlabored, no s/s of pain or distress noted. 21:05 Reassessment: Patient appears in no apparent distress at this time. Patient and/or jb4 family updated on plan of care and expected duration. Pain level reassessed. Patient is alert, oriented x 3, equal unlabored respirations, skin warm/dry/pink. [facility] Provider cleared patient to be discharged home. Psych: 12:34 Subjective: Patient's mood is sad, Delusions are denied. Objective: Patient is la1 cooperative, Speech is slurred, Affect is appropriate. Interventions: Patient placed in hospital gown. Suicide Risk Assessment: Sad Person Scale: Sex of patient: Male: Score 1 point. Age of patient: Score 0 point if patient falls outside of specified age parameters. Depression: Score 1 point if signs of depression are present. Previous Attempt: Score 0 point if patient has not previously attempted suicide. Substance Abuse: Score 1 point if patient abuses alcohol or drugs. Rational Thinking: Score 1 point if patient is lacking rational thinking. Social Support: Score 1 point if social support is lacking and/or unavailable. Organized Plan: Score 0 if patient did not have an organized plan in place. Relationship: Score 1 point if patient is , , , or for a single male Chronic Sickness: Score 0 point if patient does not have a chronic illness, debilitating, or severe disorder. TOTAL POINTS: If total points are 5-6, proposed clinical action is to strongly consider hospitalization, depending upon confidence in the follow-up arrangement. Implement suicide precautions. Safety Checks: Door is open. Patient uses 12 pack. Commitment: Patient will be a voluntary commitment. Vital Signs: 12:19 BP 132 / 86; Pulse 85; Resp 20; Temp 97.9(TE); Pulse Ox 92% ; Weight 79.38 kg; Height 6 mh5 ft. 2 in. (187.96 cm); 13:31 BP 117 / 66; Pulse 81; Resp 16; Temp 97.8(TE); Pulse Ox 98% on 2 lpm NC; mh5 16:29 BP 109 / 84; Pulse 70; Resp 14; Temp 97.6(TE); Pulse Ox 99% on 2 lpm NC; mh5 17:38 BP 116 / 85; Pulse 65; Resp 16; Temp 98.0(TE); Pulse Ox 98% on 2 lpm NC; mh5 18:17 BP 101 / 67; Pulse 68; Resp 18; Temp 97.5(TE); Pulse Ox 91% on R/A; mh5 12:19 Body Mass Index 22.47 (79.38 kg, 187.96 cm) 5 ED Course: 12:07 Patient arrived in ED. la1 12:07 Jose Nunn MD is Attending Physician. ps1 12:09 Triage completed. la1 12:09 Arm band placed on right wrist. la1 12:09 Patient has correct armband on for positive identification. Placed in gown. Bed in low mh5 position. Call light in reach. Side rails up X2. Warm blanket given. 12:15 Safety checks: Items removed: yes. Door open/sign placed on door: yes. no. mh5 Family/friend present: no. Sitter present: Yes. 12:15 Pulse ox on. NIBP on. mh5 12:30 Tuan Real RN is Primary Nurse. la1 12:30 Safety checks: Items removed: yes. Door open/sign placed on door: yes. Family/friend mh5 present: no. Sitter present: Yes. 12:45 Safety checks: Items removed: yes. Door open/sign placed on door: yes. Family/friend mh5 present: no. Sitter present: Yes. 13:00 Safety checks: Items removed: yes. Door open/sign placed on door: yes. Family/friend mh5 present: no. Sitter present: Yes. 13:15 Safety checks: Items removed: yes. Door open/sign placed on door: yes. Family/friend mh5 present: no. Sitter present: Yes. 13:30 Safety checks: Items removed: yes. Door open/sign placed on door: yes. Family/friend mh5 present: no. Sitter present: Yes. 13:45 Safety checks: Items removed: yes. Door open/sign placed on door: yes. Family/friend mh5 present: no. Sitter present: Yes. 14:00 Safety checks: Items removed: yes. Door open/sign placed on door: yes. Family/friend mh5 present: no. Sitter present: Yes. 14:00 Oxygen administration via nasal cannula \\T\\ 2L/min. 3 14:05 Urine collected: clean catch specimen, clear, gordo colored, Legal drug screen obtained 3 per protocol. 14:15 Safety checks: Items removed: yes. Door open/sign placed on door: yes. Family/friend mh5 present: no. Sitter present: Yes. 14:30 Safety checks: Items removed: yes. Door open/sign placed on door: yes. Family/friend mh5 present: no. Sitter present: Yes. 14:42 Urine Drug Screen Sent. 3 14:45 Safety checks: Items removed: yes. Door open/sign placed on door: yes. Family/friend mh5 present: no. Sitter present: Yes. 15:00 Safety checks: Items removed: yes. Door open/sign placed on door: yes. Family/friend mh5 present: no. Sitter present: Yes. 15:04 Initial lab(s) drawn, by me, EKG done, by ED staff, reviewed by Jose Nunn MD. 5 Inserted saline lock: 20 gauge in right forearm, using aseptic technique. 15:05 Acetaminophen Sent. mh5 15:05 Basic Metabolic Panel Sent. mh5 15:05 CBC with Diff Sent. mh5 15:05 ETOH Level Sent. mh5 15:06 Hepatic Function Sent. 5 15:06 PT-INR Sent. 5 15:06 Ptt, Activated Sent. mh5 15:06 Salicylate Sent. mh5 15:15 Safety checks: Items removed: yes. Door open/sign placed on door: yes. Family/friend mh5 present: no. Sitter present: Yes. 15:30 Safety checks: Items removed: yes. Door open/sign placed on door: yes. Family/friend mh5 present: no. Sitter present: Yes. 15:45 Safety checks: Items removed: yes. Door open/sign placed on door: yes. Family/friend mh5 present: no. Sitter present: Yes. 16:00 Safety checks: Items removed: yes. Door open/sign placed on door: yes. Family/friend mh5 present: no. Sitter present: Yes. 16:10 Repeat lab(s) drawn. by me, sent to lab. jp3 16:15 Safety checks: Items removed: yes. Door open/sign placed on door: yes. Family/friend mh5 present: no. Sitter present: Yes. 16:25 Diet tray given. jp3 16:30 Safety checks: Items removed: yes. Door open/sign placed on door: yes. Family/friend jp3 present: no. Sitter present: Yes. 16:45 Safety checks: Items removed: yes. Door open/sign placed on door: yes. Family/friend jp3 present: no. Sitter present: Yes. Pillow given. Verbal reassurance given. 17:00 Safety checks: Items removed: yes. Door open/sign placed on door: yes. Family/friend mh5 present: no. Sitter present: Yes. 17:15 Safety checks: Items removed: yes. Door open/sign placed on door: yes. Family/friend mh5 present: no. Sitter present: Yes. 17:30 Safety checks: Items removed: yes. Door open/sign placed on door: yes. Family/friend mh5 present: no. Sitter present: Yes. 17:45 Safety checks: Items removed: yes. Door open/sign placed on door: yes. Family/friend mh5 present: no. Sitter present: Yes. 18:00 Safety checks: Items removed: yes. Door open/sign placed on door: yes. Family/friend mh5 present: no. Sitter present: Yes. 18:15 Safety checks: Items removed: yes. Door open/sign placed on door: yes. Family/friend mh5 present: no. Sitter present: Yes. 18:30 Safety checks: Items removed: yes. Door open/sign placed on door: yes. Family/friend mh5 present: no. Sitter present: Yes. 18:45 Safety checks: Items removed: yes. Door open/sign placed on door: yes. Family/friend mh5 present: no. Sitter present: Yes. 19:00 Safety checks: Items removed: yes. Door open/sign placed on door: yes. Family/friend mh5 present: no. Sitter present: Yes. 21:05 No provider procedures requiring assistance completed. IV discontinued, intact, jb4 bleeding controlled, No redness/swelling at site. Pressure dressing applied. Administered Medications: No medications were administered Outcome: 19:55 Discharge ordered by . ps1 21:05 Discharged to Discharged to lobby to wait for ride. jb4 21:05 Condition: stable 21:05 Discharge instructions given to patient, Instructed on discharge instructions, follow up and referral plans. Demonstrated understanding of instructions, follow-up care. 21:06 Patient left the ED. jb4 Signatures: Tuan Real RN RN la1 Delonte Perdomo RN RN jb4 Zabrina Marquis Brian, RN RN Jose Molina MD MD ps1 Leroy Ghotra jp3 Corrections: (The following items were deleted from the chart) 17:41 16:29 BP 109 / 84; Pulse 70bpm; Resp 14bpm; Pulse Ox 99%; bp mh5 17:41 17:38 BP 116 / 85; Pulse 65bpm; Resp 16bpm; Pulse Ox 98%; bp mh5 17:43 13:31 BP 117 / 66; Pulse 81bpm; Resp 16bpm; Pulse Ox 98% 2 lpm Nasal Cannula; la1 mh5 17:43 16:29 BP 109 / 84; Pulse 70bpm; Resp 14bpm; Pulse Ox 99% 2 lpm Nasal Cannula; 5 5 17:43 17:38 BP 116 / 85; Pulse 65bpm; Resp 16bpm; Pulse Ox 98% 2 lpm Nasal Cannula; 5 5
--- NOTE | 2019-06-12 19:56 | EDPHYS ---
Physician Documentation [facility] Name: Jewel Cespedes Age: 53 yrs Sex: Male : 1965 Arrival Date: 06/12/2019 Time: 12:07 Bed 15 Private MD: ED Physician Jose Nunn HPI: 06/12 12:50 This 53 yrs old Male presents to ER via Ambulatory with complaints of ETOH ps1 Abuse. 12:50 patient BIBEMS with police escort while intoxicated on alcohol. Patient reportedly ps1 drinks 24 "tallboys" a day and reportedly got into a verbal argument with family. He reportedly then held a knife to his throat and made threats of harm. He currently denies suicidal thoughts or intentions. He additionally has COPD and is a smoker. Cooperative at this time. . Historical: - Allergies: 12:33 NKA; la1 - PMHx: 12:33 Asthma; Anxiety; Hypertension; Hypothyroidism; Myocardial infarction; Alcoholism; la1 Schizophrenia; - Immunization history:: Adult Immunizations up to date. - Social history:: Smoking status: Patient uses tobacco products, smokes one pack cigarettes per day. - Ebola Screening: : No symptoms or risks identified at this time. ROS: 12:50 Unable to obtain ROS due to Unreliable and obviously intoxicated.. ps1 Exam: 12:50 Constitutional: This is a well developed, well nourished patient who is awake, alert, ps1 and in no acute distress. Head/Face: Normocephalic, atraumatic. Eyes: Pupils equal round and reactive to light, extra-ocular motions intact. Lids and lashes normal. Conjunctiva and sclera are non-icteric and not injected. Chest/axilla: Normal chest wall appearance and motion. Nontender with no deformity. No lesions are appreciated. Cardiovascular: Regular rate and rhythm. No gallops, murmurs, or rubs. Normal PMI, no JVD. No pulse deficits. Respiratory: Lungs have equal breath sounds bilaterally, clear to auscultation and percussion. No rales, rhonchi or wheezes noted. No increased work of breathing, no retractions or nasal flaring. Abdomen/GI: Soft, non-tender, with normal bowel sounds. No distension or tympany. No guarding or rebound. No evidence of tenderness throughout. Skin: Warm, dry with normal turgor. Normal color with no rashes, no lesions, and no evidence of cellulitis. MS/ Extremity: Pulses equal, no cyanosis. Neurovascular intact. Full, normal range of motion. 12:50 Constitutional: The patient appears aroma of alcohol and tobacco on or about the person. 12:50 Neuro: Orientation: Not oriented to time, situation, Mentation: able to follow commands. Vital Signs: 12:19 BP 132 / 86; Pulse 85; Resp 20; Temp 97.9(TE); Pulse Ox 92% ; Weight 79.38 kg; Height 6 mh5 ft. 2 in. (187.96 cm); 13:31 BP 117 / 66; Pulse 81; Resp 16; Temp 97.8(TE); Pulse Ox 98% on 2 lpm NC; mh5 16:29 BP 109 / 84; Pulse 70; Resp 14; Temp 97.6(TE); Pulse Ox 99% on 2 lpm NC; mh5 17:38 BP 116 / 85; Pulse 65; Resp 16; Temp 98.0(TE); Pulse Ox 98% on 2 lpm NC; mh5 18:17 BP 101 / 67; Pulse 68; Resp 18; Temp 97.5(TE); Pulse Ox 91% on R/A; mh5 12:19 Body Mass Index 22.47 (79.38 kg, 187.96 cm) 5 MDM: 13:37 Patient medically screened. ps1 19:53 Data reviewed: vital signs, nurses notes, lab test result(s), and as a result, I will ps1 discharge patient. Counseling: I had a detailed discussion with the patient and/or guardian regarding: the historical points, exam findings, and any diagnostic results supporting the discharge/admit diagnosis, lab results, the need for outpatient follow up, to return to the emergency department if symptoms worsen or persist or if there are any questions or concerns that arise at home. ED course: Seek rehab for ETOH abuse. Sources given. Patient denies SI/HI at this time. Clinically sober. . 06/12 14:23 Order name: Acetaminophen; Complete Time: 15:27 ps1 06/12 14:23 Order name: Basic Metabolic Panel; Complete Time: 15:27 ps1 06/12 14:23 Order name: CBC with Diff; Complete Time: 15:33 ps1 06/12 14:23 Order name: ETOH Level; Complete Time: 17:02 ps1 06/12 14:23 Order name: Hepatic Function; Complete Time: 15:27 ps1 06/12 14:23 Order name: PT-INR; Complete Time: 15:27 ps1 06/12 14:23 Order name: Ptt, Activated; Complete Time: 15:27 ps1 06/12 14:23 Order name: Salicylate; Complete Time: 15:27 ps1 06/12 14:23 Order name: Urine Drug Screen; Complete Time: 15:03 ps1 06/12 14:23 Order name: EKG; Complete Time: 14:24 ps1 06/12 14:42 Order name: Urine Dipstick--Ancillary (enter results); Complete Time: 15:03 ms 06/12 15:08 Order name: CBC Smear Scan; Complete Time: 15:33 EDMS 06/12 15:36 Order name: Diet Regular; Complete Time: 15:37 mh5 06/12 16:07 Order name: Ethanol; Complete Time: 17:02 la1 06/12 14:23 Order name: EKG - Nurse/Tech; Complete Time: 14:55 ps1 06/12 14:23 Order name: IV Saline Lock; Complete Time: 14:55 [facility] 06/12 14:23 Order name: Labs collected and sent; Complete Time: 14:55 ps1 06/12 14:23 Order name: Urine Dipstick-Ancillary (obtain specimen); Complete Time: 14:42 ps1 Administered Medications: No medications were administered Disposition: 19:55 Chart complete. ps1 Disposition: 06/12/19 19:55 Discharged to Home. Impression: Alcohol abuse with intoxication. - Condition is Stable. - Discharge Instructions: Alcohol Intoxication, What You Need to Know About Alcohol Abuse and Dependence, Youth. - Medication Reconciliation Form, Thank You Letter, Antibiotic Education, Prescription Opioid Use form. - Follow up: Emergency Department; When: As needed; Reason: Worsening of condition. - Problem is chronic. - Symptoms have improved. Signatures: Dispatcher [employer] EDMS Tuan Real RN RN la1 Delonte Perdomo RN RN jb4 Jose Nunn MD MD ps1 Corrections: (The following items were deleted from the chart) 21:06 19:55 06/12/2019 19:55 Discharged to Home. Impression: Alcohol abuse with intoxication. jb4 Condition is Stable. Forms are Medication Reconciliation Form, Thank You Letter, Antibiotic Education, Prescription Opioid Use. Follow up: Emergency Department; When: As needed; Reason: Worsening of condition. Problem is chronic. Symptoms have improved. ps1
[2019-06-12 21:27] VITALS: BP 101/67; TEMP 97.5; O2SAT 91
--- NOTE | 2019-06-13 17:38 | EKG ---
Test Date: 2019-06-12 Test Time: 14:59:30 Ship Erector: KADIE MEASUREMENT RESULTS: Intervals: Rate: 71 RI: 146 QRSD: 94 QT: 434 QTc: 471 [place]: P: 70 RI: 146 QRS: 57 T: 77 INTERPRETIVE STATEMENTS: Normal sinus rhythm Normal ECG Compared to ECG 11/14/2018 12:45:59 No significant changes Electronically Signed On 06-13-19 17:35:13 CDT by Danial Portillo
== END 2019-06-12 21:06 | disposition home or self-care (01) ==
LOC: ER 12:02
DX: F10.229 Alcohol dependence with intoxication, unspecified (principal); I10 Essential (primary) hypertension; J44.9 Chronic obstructive pulmonary disease, unspecified; F17.210 Nicotine dependence, cigarettes, uncomplicated
CPT/HCPCS: 36415; 80048; 80076; 80307; 80320; 80329; 81003; 85025; 85610; 85730; 93005; 99285

== ENCOUNTER 2020-07-11 16:37 | Emergency (ER) | payer MEDICAID ==
[2020-07-11 17:30] LABS: Absolute Lymphocytes (CBC) 1.6 K/uL (0.7-4.9); Basophils % 2.4 % (0-1.3); Hematocrit 35.8 % (39.6-49.0); Lymphocytes % 41.2 % (15.3-44.8); MPV 7.7 fL (7.6-11.3); RBC Red Blood Cell Count 3.72 M/uL (4.33-5.43)
[2020-07-11 17:33] LABS: Protime INR 0.95
--- NOTE | 2020-07-11 17:44 | ER ---
Nurse's Notes [facility] Name: Jewel Cespedes Age: 54 yrs Sex: Male : 1965 Arrival Date: 07/11/2020 Time: 16:39 Bed 14 Private MD: Diagnosis: Presentation: 07/11 16:49 Chief complaint: Patient states: has been drinking since 0630 today, drinking unknown iw amount of beer, also smoked weed, wants to stop drinking, is daily drinker, 12 pack to a case of beer per day. Coronavirus screen: At this time, the client does not indicate any symptoms associated with coronavirus-19. Ebola Screen: Patient negative for fever greater than or equal to 101.5 degrees Fahrenheit, and additional compatible Ebola Virus Disease symptoms Patient denies exposure to infectious person. Patient denies travel to an Ebola-affected area in the 21 days before illness onset. No symptoms or risks identified at this time. Initial Sepsis Screen: Does the patient meet any 2 criteria? No. Patient's initial sepsis screen is negative. Does the patient have a suspected source of infection? No. Patient's initial sepsis screen is negative. Risk Assessment: Do you want to hurt yourself or someone else? Patient reports no desire to harm self or others. Onset of symptoms was July 11, 2020. 16:49 Method Of Arrival: Wheelchair iw 16:49 Acuity: KAREN 3 iw Triage Assessment: 17:00 General: Appears in no apparent distress. comfortable, unkempt, Behavior is bp cooperative, drowsy, Smells of alcohol. Pain: Denies pain. EENT: No deficits noted. Neuro: Level of Consciousness is alert, obeys commands, lethargic, Oriented to person, place, time, situation. Cardiovascular: No deficits noted. Respiratory: No deficits noted. GI: No signs and/or symptoms were reported involving the gastrointestinal system. : No signs and/or symptoms were reported regarding the genitourinary system. Derm: No deficits noted. Musculoskeletal: No deficits noted. Historical: - Allergies: 16:52 NKA; iw - PMHx: 16:52 Alcoholism; Anxiety; Asthma; Hypertension; Hypothyroidism; Myocardial infarction; iw Schizophrenia; - Immunization history:: Adult Immunizations unknown. - Social history:: Smoking status: Patient reports the use of cigarette tobacco products, smokes one pack cigarettes per day. Patient uses alcohol, on a daily basis. street drugs, marijuana. Screenin:00 Abuse screen: Denies threats or abuse. Denies injuries from another. Nutritional bp screening: No deficits noted. Tuberculosis screening: No symptoms or risk factors identified. Fall Risk None identified. Assessment: 17:00 General: SEE TRIAGE NOTE. bp 17:19 Reassessment: PT NOW STATING HE REFUSES TREATMENT AND WISHES TO LEAVE. NOTIFIED AND bp AT B/S. 17:36 Reassessment: PT LEFT AMA, LAST SEEN IN STABLE CONDITION, WITH STEADY GAIT, NO ATAXIA. bp PT ADVISED TO REMAIN, BUT REFUSED, AND ADVISED TO RETURN IF S/S WORSEN. PT REFUSED TO SIGN AMA PAPERS. Vital Signs: 16:49 BP 103 / 74; Pulse 86; Resp 18 S; Temp 98.6; Pulse Ox 96% on R/A; iw 17:15 BP 104 / 64; Pulse 87; Resp 16; Pulse Ox 96% ; bp ED Course: 16:39 Patient arrived in ED. mr 16:51 Triage completed. iw 16:52 Arm band placed on. iw 17:07 Call light in reach. Side rails up X2. Warm blanket given. Verbal reassurance given. jp3 Pulse ox on. NIBP on. 17:07 Initial lab(s) drawn, by me, held in ED. Inserted saline lock: 20 gauge in right jp3 forearm, using aseptic technique. Blood collected. Patient maintains SpO2 saturation greater than 95% on room air. 17:12 Rishabh Vazquez MD is Attending Physician. kdr 17:14 Sebastián Olivo, RN is Primary Nurse. bp 17:30 IV discontinued, intact, bleeding controlled, No redness/swelling at site. Pressure bp dressing applied. Administered Medications: No medications were administered Outcome: 17:44 Patient left the ED. bp Signatures: Rishabh Vazquez MD MD kdr Rivera, Mary mr Marine Canela, RN RN iw Sebastián Olivo, JORDY RN Leroy Oneal jp3
[2020-07-11 17:55] LABS: ALT/SGPT 18 U/L (12-78); AST/SGOT 52 U/L (15-37); Albumin 4.4 g/dL (3.4-5.0); Alkaline Phosphatase 53 U/L (45-117); BUN Blood Urea Nitrogen 7 mg/dL (7-18); Bicarbonate 24 mmol/L (21-32); Bilirubin Direct 0.2 mg/dL (0-0.2); Bilirubin Total 0.7 mg/dL (0.2-1.0); Glucose Level 62 mg/dL (74-106); Potassium 3.5 mmol/L (3.5-5.1); Sodium Level 135 mmol/L (136-145)
[2020-07-11 17:55] LABS: Barbiturates NEGATIVE (NEGATIVE); Benzodiazepines NEGATIVE (NEGATIVE); Cocaine NEGATIVE (NEGATIVE); METHAMPHETAM NEGATIVE (NEGATIVE); Methadone NEGATIVE (NEGATIVE); Opiates NEGATIVE (NEGATIVE); Phencyclidine NEGATIVE (NEGATIVE); THC Cannibis NEGATIVE (NEGATIVE)
[2020-07-11 18:13] VITALS: BP 104/64; O2SAT 96
[2020-07-11 18:15] VITALS: TEMP 98.6
--- OUTSIDE RECORDS SUMMARY | 2020-07-17 17:40 | XMS REPORT | Clinical Summary ---
:1965 Author Organization [facility] Address [address] [place] [address] Care Team Providers Name Role Phone Yisel Primary Care Provider Unavailable Allergies No Known Allergies Medications Medication Sig Dispensed Refills Start Date End Date Status ALPRAZolam (XANAX) 1 MG Take 1 mg by 0 Active tablet mouth every night as needed for Anxiety. levothyroxine Take 137 mcg by 0 Active (SYNTHROID, LEVOTHROID) mouth Every 137 MCG tablet morning on an empty stomach. pantoprazole (PROTONIX) Take 1 tablet (40 30 tablet 0 12/17/19 18 Active 40 MG tablet mg total) by mouth daily. atorvastatin (LIPITOR) TAKE 1 TABLET BY 30 tablet 0 03/11/2018 Active 80 MG tablet MOUTH EVERY DAY Active Problems Problem Noted Date ETOH abuse 12/13/2017 Tobacco abuse 12/13/2017 ST elevation myocardial infarction involving right cor onary artery 12/12/2017 Alcoholism /alcohol abuse 12/12/2017 Hypothyroidism [...] Cans of beer 42.0 4-10 cans per da y Sex Assigned at Date Recorded Not on file Job Start Date Occupation Industry Not on file Not on file Not on file Travel History Travel Start Travel End No recent travel history available. Last Filed Vital Signs Not on file Plan of Treatment Health Maintenance Due Date Last Done Comments COLON CANCER SCREENING COLONOSCOPY 1965 PNEUMOCOCCAL VACCINE 2-64 YEARS AT RISK (1 of 1 - 1969 PPSV23) INFLUENZA VACCINE (#1) 2020 12/13/2017 Implants Implanted Type Area Wood Setter Device Shelf Model / Identifier Expiration Serial / Date Lot Synergy Stents-C N/A: [place] 06/11/2018 [id number] / Implanted: Qty: 1 on 12/12/2017 by Odessa Busch MD [facility] Coronary [employer] / [id number] Results Not on fileafter 07/17/2019 Insurance Payer Benefit Plan / Group Subscriber ID Type Phone A ddress [place] MED[place] MED[place]ID [place] xxxxxxxxx
--- OUTSIDE RECORDS SUMMARY | 2020-07-17 17:40 | XMS REPORT | Continuity of Care Document ---
:1965 Author Organization [facility] t Address [address] [place] [address] Care Team Providers Name Role Phone Sharpless Primary Care Physician Unavailable DOUGLAS LAWTON Attending Clinician Unavailable DOUGLAS LAWTON Admitting Clinician Unavailable Problems Condition Condition Condition Status Onset Resolution Last Treating Co mments Source Name Details Category Date Date Treatment Clinician Date ETOH abuse ETOH abuse Disease [facility] 00 [place] Tobacco Tobacco Disease Active [facility] abuse abuse [facility] [address] [place] [address] Disease Active [facility] elevation elevation 3-04 [facility] - myocardial myocardial 00:00: Me dical infarction infarction 00 Ce nter 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 Alcoholism Alcoholism Disease Active [facility] abuse [facility] Hypothyroi Hypothyroi Disease Active [facility] dism dism [facility] 00 [place] Chronic Chronic Disease Active [facility] anemia anemia 3-04 [facility] Anxiety Anxiety Disease Active [facility] disorder disorder [facility] Acute pain Acute pain Disease Active [facility] Insomnia Insomnia Disease [facility] Cigarette Cigarette Disease Active [facility] nicotine nicotine 3-04 [facility] - dependence dependence 00:00: Me dical 00 Center Vitamin Vitamin Disease Active [facility] deficiency deficiency 3-04 [place] [facility] - [facility] 00 [facility] Allergies, Adverse Reactions, Alerts This patient has no known allergies or adverse reactions. Social History Social Habit Start Date Stop Date Quantity Comments Source History of tobacco Cigarette Smoker [facility] - use [facility] Sex Assigned At [facility] Cigarettes smoked 2017-12-14 2017-12-14 [facility] - current (pack per 00:00:00 00:00:00 [facility] day) - Reported Cigarette 2017-12-14 2017-12-14 [facility] - pack-years 00:00:00 00:00:00 [facility] Tobacco Comment 2017-12-12 2017-12-12 2 packs per day [facility] - 00:00:00 00:00:00 [facility] Alcohol Comment 2017-12-12 2017-12-12 4-10 [facility]00 [facility] Smoking Status Start Date Stop Date Source Current every day smoker 2017-12-14 00:00:00 [facility] Medications Ordered Filled Start Stop Current Ordering Indication Dosage Frequency Signature Comments Components Source Medication Medication Date Date Medication? Clinician (SIG) Name Name atorvastati Yes TAKE [address] [facility] (LIPITOR) 6-01 TABLET BY [place] [facility] - 80 MG 00:00: MOUTH Medical tablet 00 EVERY DAY Center pantoprazol Yes 40mg QD Take [address] [facility] e 3-08 tablet (40 [facility] - (PROTONIX) 00:00: mg total) Me dical 40 MG 00 by mouth Center tablet daily. ALPRAZolam Yes 1mg Take [address] (XANAX) 1 3-04 by mouth [facility] - MG tablet 15:58: every Medical 52 night as Center needed for Anxiety. levothyroxi Yes 137ug Take [address] ne 3-04 mcg by [facility] - (SYNTHROID, 15:58: mouth Medic al LEVOTHROID) 52 Every Center 137 MCG morning on tablet an empty stomach. Immunizations Ordered Immunization Filled Immunization Date Status Commen ts Source Name Name Influenza Three-TIV 2017-12-13 [facility] 5[facility] Procedures This patient has no known procedures. Plan of Care Planned Activity Planned Date Details Comments Source Future Scheduled 2020-06-11 INFLUENZA VACCINE (#1) [facility] - Test 00:00:00 [code = INFLUENZA Medical Ce nter VACCINE (#1)] Future Scheduled [address] [facility] - Test 00:00:00 2-64 YEARS AT RISK [facility] PPSV23[facility] [code = PNEUMOCOCCAL VACCINE 2-64 YEARS AT RISK (1 of 1 - PPSV23)] Future Scheduled [address] [facility] [place] [facility] - Test 00:00:00 malignant neoplasm of [facility] colon (procedure) [code = 239303026] Results Test Description Test Time Test Comments Results Result Comments Source MAGNESIUM 2017-12-15 06:32:00 Test Item Value Reference Range Interpretation Comme nts MAGNESIUM (BEAKER) (test code = 627) 1.6 mg/dL 1.6-2.6 BASIC METABOLIC [id number] 06:32:00 Test Item Value Reference Range Interpretation Comments SODIUM (BEAKER) 139 meq/L 136-145 (test code = 381) POTASSIUM (BEAKER) 4.1 meq/L 3.5-5.1 (test code = 379) CHLORIDE (BEAKER) 105 meq/L 98-107 (test code = 382) CO2 (BEAKER) (test 25 meq/L 22-29 code = 355) BLOOD UREA NITROGEN 9 mg/dL 7-21 (BEAKER) (test code = 354) CREATININE (BEAKER) 0.75 mg/dL 0.57-1.25 (test code = 358) GLUCOSE RANDOM 84 mg/dL 70-105 (BEAKER) (test code = 652) CALCIUM (BEAKER) 9.1 mg/dL 8.4-10.2 (test code = 697) EGFR (BEAKER) (test 109 mL/min/1.73 ESTIM ATED GFR IS code = 1092) sq m NOT ACCURATE CREATININE CLEARANCE IN PREDICTING GLOMERULAR FILTRATION RATE . ESTIMATED GFR I S NOT APPLICABLE FOR DIALYSIS PATIEN TS. CBC (HEMOGRAM ONLY)2017-12-15 06:08:00 Test Item Value Reference Range Interpretation Comments WHITE BLOOD CELL COUNT (BEAKER) 4.5 K/ L 3.5-10.5 (test code = 775) RED BLOOD CELL COUNT (BEAKER) 4.28 M/ L 4.63-6.08 L (test code = 761) HEMOGLOBIN (BEAKER) (test code = 12.7 GM/DL 13.7-17.5 L 410) HEMATOCRIT (BEAKER) (test code = 39.2 % 40.1-51.0 L 411) MEAN CORPUSCULAR VOLUME (BEAKER) 91.6 fL 79.0-92.2 (test code = 753) MEAN CORPUSCULAR HEMOGLOBIN 29.7 pg 25.7-32.2 (BEAKER) (test code = 751) MEAN CORPUSCULAR HEMOGLOBIN CONC 32.4 GM/DL 32.3-36.5 (BEAKER) (test code = 752) RED CELL DISTRIBUTION WIDTH 14.1 % 11.6-14.4 (BEAKER) (test code = 412) PLATELET COUNT (BEAKER) (test 149 K/CU MM 150-450 L code = 756) MEAN PLATELET VOLUME (BEAKER) 10.2 fL 9.4-12.4 (test code = 754) NUCLEATED RED BLOOD CELLS 0 /100 WBC 0-0 (BEAKER) (test code = 413) TROPONIN [id number] 23:05:00 Test Item Value Reference Range Interpretation Comments TROPONIN I (BEAKER) (test code = 0.99 ng/mL 0.00-0.03 HH 397) Troponin I (TnI) levels must be interpreted [...] failure, acidosis, acute neurological disease, and persistent tachyarrhythmia.[id number] 05:14:00 Test Item Value Reference Range Interpretation Comments MAGNESIUM (BEAKER) (test code = 1.7 mg/dL 1.6-2.6 627) BASIC METABOLIC [id number] 05:14:00 Test Item Value Reference Range Interpretation Comments SODIUM (BEAKER) 137 meq/L 136-145 (test code = 381) POTASSIUM (BEAKER) 4.0 meq/L 3.5-5.1 (test code = 379) CHLORIDE (BEAKER) 104 meq/L 98-107 (test code = 382) CO2 (BEAKER) (test 26 meq/L 22-29 code = 355) BLOOD UREA NITROGEN 7 mg/dL 7-21 (BEAKER) (test code = 354) CREATININE (BEAKER) 0.86 mg/dL 0.57-1.25 (test code = 358) GLUCOSE RANDOM 84 mg/dL 70-105 (BEAKER) (test code = 652) CALCIUM (BEAKER) 9.0 mg/dL 8.4-10.2 (test code = 697) EGFR (BEAKER) (test 93 mL/min/1.73 ESTIMA SHANEKA GFR IS code = 1092) sq m NOT ACCURATE CREATININE CLEARANCE IN PREDICTING GLOMERULAR FILTRATION RATE . ESTIMATED GFR I S NOT APPLICABLE FOR DIALYSIS PATIEN TS. CBC (HEMOGRAM ONLY)2017-12-14 04:38:00 Test Item Value Reference Range Interpretation Comments WHITE BLOOD CELL COUNT (BEAKER) 3.7 K/ L 3.5-10.5 (test code = 775) RED BLOOD CELL COUNT (BEAKER) 4.13 M/ L 4.63-6.08 L (test code = 761) HEMOGLOBIN (BEAKER) (test code = 12.2 GM/DL 13.7-17.5 L 410) HEMATOCRIT (BEAKER) (test code = 37.6 % 40.1-51.0 L 411) MEAN CORPUSCULAR VOLUME (BEAKER) 91.0 fL 79.0-92.2 (test code = 753) MEAN CORPUSCULAR HEMOGLOBIN 29.5 pg 25.7-32.2 (BEAKER) (test code = 751) MEAN CORPUSCULAR HEMOGLOBIN CONC 32.4 GM/DL 32.3-36.5 (BEAKER) (test code = 752) RED CELL DISTRIBUTION WIDTH 13.9 % 11.6-14.4 (BEAKER) (test code = 412) PLATELET COUNT (BEAKER) (test 131 K/CU MM 150-450 L code = 756) MEAN PLATELET VOLUME (BEAKER) 10.1 fL 9.4-12.4 (test code = 754) NUCLEATED RED BLOOD CELLS 0 /100 WBC 0-0 (BEAKER) (test code = 413) [id number] 09:35:00 Test Item Value Reference Range Interpretation Comments ACTIVATED CLOTTING TIME 279 sec TEST ED AT [facility] 6720 (BEAKER) (test code = [place] [address]) [id number] 09:35:00 Test Item Value Reference Range Interpretation Comments ACTIVATED CLOTTING TIME 246 sec TEST ED AT [place] [address] (BEAKER) (test code = [address] [address]) [id number] 08:47:00 Test Item Value Reference Range Interpretation Comments ACTIVATED CLOTTING TIME 114 sec TEST ED AT [place] [address] (BEAKER) (test code = [address] [address] [place] [address]) [id number] 06:45:00 Test Item Value Reference Range Interpretation Comments MAGNESIUM (BEAKER) (test code = 1.9 mg/dL 1.6-2.6 627) BASIC METABOLIC [id number] 06:45:00 Test Item Value Reference Range Interpretation Comments SODIUM (BEAKER) 139 meq/L 136-145 (test code = 381) POTASSIUM (BEAKER) 3.9 meq/L 3.5-5.1 (test code = 379) CHLORIDE (BEAKER) 105 meq/L 98-107 (test code = 382) CO2 (BEAKER) (test 25 meq/L 22-29 code = 355) BLOOD UREA NITROGEN 11 mg/dL 7-21 (BEAKER) (test code = 354) CREATININE (BEAKER) 0.77 mg/dL 0.57-1.25 (test code = 358) GLUCOSE RANDOM 84 mg/dL 70-105 (BEAKER) (test code = 652) CALCIUM (BEAKER) 8.4 mg/dL 8.4-10.2 (test code = 697) EGFR (BEAKER) (test 105 mL/min/1.73 ESTIM ATED GFR IS code = 1092) sq m NOT ACCURATE CREATININE CLEARANCE IN PREDICTING GLOMERULAR FILTRATION RATE . ESTIMATED GFR I S NOT APPLICABLE FOR DIALYSIS PATIEN TS. CBC (HEMOGRAM ONLY)2017-12-13 05:55:00 Test Item Value Reference Range Interpretation Comments WHITE BLOOD CELL COUNT (BEAKER) 4.4 K/ L 3.5-10.5 (test code = 775) RED BLOOD CELL COUNT (BEAKER) 4.10 M/ L 4.63-6.08 L (test code = 761) HEMOGLOBIN (BEAKER) (test code = 12.2 GM/DL 13.7-17.5 L 410) HEMATOCRIT (BEAKER) (test code = 37.4 % 40.1-51.0 L 411) MEAN CORPUSCULAR VOLUME ([facility]) 91.2 fL 79.0-92.2 (test code = 753) MEAN CORPUSCULAR HEMOGLOBIN 29.8 pg 25.7-32.2 ([facility]) (test code = 751) MEAN CORPUSCULAR HEMOGLOBIN CONC 32.6 GM/DL 32.3-36.5 ([facility]) (test code = 752) RED CELL DISTRIBUTION WIDTH 14.0 % 11.6-14.4 ([facility]) (test code = 412) PLATELET COUNT ([facility]) (test 128 K/CU MM 150-450 L code = 756) MEAN PLATELET VOLUME ([facility]) 9.5 fL 9.4-12.4 (test code = 754) NUCLEATED RED BLOOD CELLS 0 /100 WBC 0-0 ([facility]) (test code = 413) HEMOGLOBIN [id number] 23:29:00 Test Item Value Reference Range Interpretation Comments HEMOGLOBIN A1C ([facility]) (test code = 5.3 % 4.3-6.1 368) [id number] 15:58:00 Test Item Value Reference Range Interpretation Comments ACTIVATED CLOTTING TIME 125 sec TEST ED AT [place] [address] ([facility]) (test code = [address] [address] [place] [address]) [id number] T4, [id number] 14:56:00 Test Item Value Reference Range Interpretation Comments FREE T4 ([facility]) (test code = 655) 0.94 ng/dL 0.70-1.48 [id number] 14:50:00 Test Item Value Reference Range Interpretation Comments ACTIVATED CLOTTING TIME 136 sec TEST ED AT [place] [address] ([facility]) (test code = [place] [address] [place] [address]) [id number] 14:25:00 Test Item Value Reference Range Interpretation Comments ACTIVATED CLOTTING TIME 164 sec TEST ED AT [place] [address] ([facility]) (test code = [place] [address] [place] [address]) [address] TSH/FREE T4 IF [id number] 14:25:00 Test Item Value Reference Range Interpretation Comments THYROID STIMULATING HORMONE 5.53 uIU/mL 0.35-4.94 H ([facility]) (test code = 772) TROPONIN [id number] 14:09:00 Test Item Value Reference Range Interpretation Comments TROPONIN I (BEAKER) (test code = 32.04 ng/mL 0.00-0.03 HH 397) Troponin I (TnI) levels must be interpreted [...] and persistent tachyarrhythmia.CBC W/PLT COUNT & AUTO DIFFERENTIAL 2017-12-12 14:07:00 Test Item Value Reference Range Interpretation Comments WHITE BLOOD CELL COUNT (BEAKER) 7.5 K/ L 3.5-10.5 (test code = 775) RED BLOOD CELL COUNT (BEAKER) 4.27 M/ L 4.63-6.08 L (test code = 761) HEMOGLOBIN (BEAKER) (test code = 12.7 GM/DL 13.7-17.5 L 410) HEMATOCRIT (BEAKER) (test code = 38.3 % 40.1-51.0 L 411) MEAN CORPUSCULAR VOLUME (BEAKER) 89.7 fL 79.0-92.2 (test code = 753) MEAN CORPUSCULAR HEMOGLOBIN 29.7 pg 25.7-32.2 (BEAKER) (test code = 751) MEAN CORPUSCULAR HEMOGLOBIN CONC 33.2 GM/DL 32.3-36.5 (BEAKER) (test code = 752) RED CELL DISTRIBUTION WIDTH 13.9 % 11.6-14.4 (BEAKER) (test code = 412) PLATELET COUNT (BEAKER) (test 172 K/CU MM 150-450 code = 756) MEAN PLATELET VOLUME (BEAKER) 9.5 fL 9.4-12.4 (test code = 754) NUCLEATED RED BLOOD CELLS 0 /100 WBC 0-0 (BEAKER) (test code = 413) NEUTROPHILS RELATIVE PERCENT 81 % (BEAKER) (test code = 429) LYMPHOCYTES RELATIVE PERCENT 10 % (BEAKER) (test code = 430) MONOCYTES RELATIVE PERCENT 8 % (BEAKER) (test code = 431) EOSINOPHILS RELATIVE PERCENT 0 % (BEAKER) (test code = 432) BASOPHILS RELATIVE PERCENT 1 % (BEAKER) (test code = 437) NEUTROPHILS ABSOLUTE COUNT 6.06 K/ L 1.78-5.38 H (BEAKER) (test code = 670) LYMPHOCYTES ABSOLUTE COUNT 0.78 K/ L 1.32-3.57 L (BEAKER) (test code = 414) MONOCYTES ABSOLUTE COUNT (BEAKER) 0.60 K/ L 0.30-0.82 (test code = 415) EOSINOPHILS ABSOLUTE COUNT 0.00 K/ L 0.04-0.54 L (BEAKER) (test code = 416) BASOPHILS ABSOLUTE COUNT (BEAKER) 0.04 K/ L 0.01-0.08 (test code = 417) IMMATURE GRANULOCYTES-RELATIVE 0 % 0-1 PERCENT (BEAKER) (test code = 2801) CREATINE KINASE (CK), TOTAL AND [id number] 14:06:00 Test Item Value Reference Range Interpretation Comments CREATINE KINASE TOTAL (BEAKER) 336 U/L 29-200 H (test code = 380) CREATINE KINASE-MB (BEAKER) (test 21.4 ng/mL 0.0-6.6 H code = 750) CREATINE KINASE-MB INDEX (BEAKER) 6.4 % (test code = 395) CK-MB Reference Range:<6.7 Normal6.7-10.0 Borderline>10.0 AbnormalB-TYPE NATRIURETIC FACTOR (BNP)2017-12-12 14:05:00 Test Item Value Reference Range Interpretation Comments B-TYPE NATRIURETIC PEPTIDE (BEAKER) 25 pg/mL 0-100 (test code = 700) [id number] 13:59:00 Test Item Value Reference Range Interpretation Comments PHOSPHORUS (BEAKER) (test code = 3.4 mg/dL 2.3-4.7 604) [id number] 13:59:00 Test Item Value Reference Range Interpretation Comments MAGNESIUM (BEAKER) (test code = 1.9 mg/dL 1.6-2.6 627) COMPREHENSIVE METABOLIC [id number] 13:59:00 Test Item Value Reference Range Interpretation Comments TOTAL PROTEIN 6.5 gm/dL 6.0-8.3 (BEAKER) (test code = 770) ALBUMIN (BEAKER) 3.8 g/dL 3.5-5.0 (test code = 1145) ALKALINE PHOSPHATASE 72 U/L 40-150 (BEAKER) (test code = 346) BILIRUBIN TOTAL 1.1 mg/dL 0.2-1.2 (BEAKER) (test code = 377) SODIUM (BEAKER) (test 137 meq/L 136-145 code = 381) POTASSIUM (BEAKER) 4.5 meq/L 3.5-5.1 (test code = 379) CHLORIDE (BEAKER) 103 meq/L 98-107 (test code = 382) CO2 (BEAKER) (test 23 meq/L 22-29 code = 355) BLOOD UREA NITROGEN 12 mg/dL 7-21 (BEAKER) (test code = 354) CREATININE (BEAKER) 0.78 mg/dL 0.57-1.25 (test code = 358) GLUCOSE RANDOM 79 mg/dL 70-105 (BEAKER) (test code = 652) CALCIUM (BEAKER) 8.5 mg/dL 8.4-10.2 (test code = 697) AST (SGOT) (BEAKER) 55 U/L 5-34 H (test code = 353) ALT (SGPT) (BEAKER) 18 U/L 6-55 (test code = 347) EGFR (BEAKER) (test 104 ESTIMATE D GFR IS code = 1092) mL/min/1.73 sq NOT ACCURA TE m CREATININE CLEARANCE IN PREDICTING GLOMERULAR FILTRATION RATE . ESTIMATED GFR I S NOT APPLICABLE FOR DIALYSIS PATIEN TS. LIPID [id number] 13:59:00 Test Item Value Reference Range Interpretation Comments TRIGLYCERIDES (BEAKER) (test code = 29 mg/dL 540) CHOLESTEROL (BEAKER) (test code = 148 mg/dL 631) HDL CHOLESTEROL (BEAKER) (test code 86 mg/dL = 976) LDL CHOLESTEROL CALCULATED (BEAKER) 56 mg/dL (test code = 633) Triglyceride Reference Range: Low Risk <150 Borderline 150-199 High Risk 200-499 Very High Risk >=500Cholesterol Reference Range: Low Risk <200 Borderline 200-239 High Risk >240HDL Cholesterol Reference Range: Low Risk >=60 High Risk <40LDL Cholesterol Reference Range: Optimal <100 Near Optimal 100-129 Borderline 130-159 High 160-189 Very High >=190
== END 2020-07-11 17:44 | disposition left against medical advice (07) ==
LOC: ER 16:37
DX: F10.20 Alcohol dependence, uncomplicated (principal); I10 Essential (primary) hypertension; F17.210 Nicotine dependence, cigarettes, uncomplicated
CPT/HCPCS: 36415; 80048; 80076; 80307; 80320; 80329; 85025; 85610; 85730; 99284

== ENCOUNTER 2022-01-16 14:15 | Observation (INO) | payer OTHER ==
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
[2022-01-16 15:25] LABS: Hematocrit 30.4 % (39.6-49.0); Lymphocytes % 22.4 % (15.3-44.8); MPV 7.6 fL (7.6-11.3); RBC Red Blood Cell Count 3.34 M/uL (4.33-5.43)
[2022-01-16 15:28] LABS: Protime INR 1.19
[2022-01-16] MEDS ORDERED: NA CHLORIDE 0.9% 500 ML ONE ×2 (15:29→21:25)
[2022-01-16] MEDS ORDERED: THIAMINE 200 MG/2 ML INJ ONE (15:29)
[2022-01-16 15:34] LABS: Sodium Level 136 mmol/L (136-145)
[2022-01-16 15:44] LABS: ALT/SGPT 14 U/L (12-78); AST/SGOT 26 U/L (15-37); Albumin 3.8 g/dL (3.4-5.0); Alkaline Phosphatase 37 U/L (45-117); BUN Blood Urea Nitrogen 13 mg/dL (7-18); Bicarbonate 27 mmol/L (21-32); Bilirubin Direct 0.2 mg/dL (0-0.2); Bilirubin Total 0.5 mg/dL (0.2-1.0); Glucose Level 113 mg/dL (74-106); Lipase 99 U/L (73-393); Magnesium 1.8 mg/dL (1.8-2.4); NT PRO-BNP 78 pg/mL (<125); Protein, Total 7.1 g/dL (6.4-8.2)
--- NOTE | 2022-01-16 15:52 | RAD REPORT ---
EXAM DESCRIPTION: RAD - Chest Single View - 01/16/2022 3:10 pm CLINICAL HISTORY: COUGH COMPARISON: Portable 08/23/2018 TECHNIQUE: AP portable chest image was obtained 01/16/2022 3:10 pm . FINDINGS: No focal consolidation or suspicious mass lesion. Interstitial pattern not clearly differe nt from comparison. Heart and vasculature are normal. No measurable pleural effusion and no pneumotho rax. No acute bony abnormality seen. No acute aortic findings suspected. IMPRESSION: No acute cardiopulmonary process. No significant change from comparison study.
[2022-01-16 15:58] LABS: Troponin High Sensitivity < 3.0 pg/mL (<58.9)
--- NOTE | 2022-01-16 16:35 | RAD REPORT ---
EXAM DESCRIPTION: CT - Head Brain Wo Cont - 01/16/2022 4:18 pm CLINICAL HISTORY: SYNCOPE, dizziness COMPARISON: Facial Bones W/ Mpr dated 08/23/2018; Head C Spine Mpr Wo Con dated 08/23/2018 TECHNIQUE: Axial 5 mm thick images of the head were obtained without IV contrast. All CT scans are performed using dose optimization technique as appropriate and may include automated exposure control or mA/KV adjustment according to patient size. FINDINGS: No intracranial hemorrhage, mass, edema or shift of mid-line structures. No acute infarcti on changes seen. No abnormal extra-axial fluid collections. Very slight interval volume loss noted be tween the current and 2018 studies. Ventricles remain in proportion to any volume loss. Physiologic b miriam ganglia calcifications are present. Mastoid air cells and visualized portions of the paranasal sinuses are clear. No acute bony findings. IMPRESSION: Negative non-contrast CT head examination for acute finding. Patient has undergone slight volume loss since the 2018 study.
--- NOTE | 2022-01-16 16:47 | RAD REPORT ---
EXAM DESCRIPTION: CT - Abdomen Pelvis W Contrast - 01/16/2022 4:19 pm CLINICAL HISTORY: ABD PAIN COMPARISON: No comparisons TECHNIQUE: Biphasic, helical CT imaging of the abdomen and pelvis was performed following 100 ml non -ionic IV contrast. No oral contrast administered. All CT scans are performed using dose optimization technique as appropriate and may include automated exposure control or mA/KV adjustment according to patient size. FINDINGS: No acute infiltrate, pneumothorax or pleural effusion. No cardiomegaly or pericardial effu [place]. A few small 5 mm or less pulmonary nodules are present. The chest is not fully evaluated no fin al recommendation can be made regarding further evaluation or monitoring of small pulmonary nodules. Liver size is normal range. No focal liver parenchymal lesions seen and no capsule nodularity identif ied. Periportal edema pattern is present. This is a nonspecific finding that can be seen with acute h epatitis as well as as a secondary response to a systemic process not otherwise evident. No pancreati c or splenic abnormality seen. Gallbladder and biliary tree are also without suspicious finding. Symmetric renal function is seen with no hydronephrosis or suspicious renal mass. No pyelonephritis o r acute parenchymal process. A 15 mm cyst is present in the lateral lower right kidney. No adrenal ab normalities. Urinary bladder is contracted. Camacho the bladder thickened. This is probably an artifact of contraction. Cystitis is not excluded but not likely unless there are supporting clinical or labo ratory findings. Prostate gland is prominent. Numerous pelvic floor phleboliths are present. Fluid distends but does not dilate the stomach. No gastric wall thickening seen. Camacho of the antrum and duodenal bulb are prominent, probably a peristalsis artifact. A mild antritis/duodenitis cannot b e excluded and needs correlation with pain presentation. Patient has several small bowel loops in the left mid abdomen showing increased wall thickness. Bowel loops show a distended diameter up to 3 cm. A bowel obstruction process is not suspected. More distally the small bowel is normal in size. Sigmo id colon is quite tortuous extending to the anterior upper abdomen. No colon dilatation. No abnormal colon wall thickening seen. Appendix is not clearly defined. CT findings are not regarded as suspicio us for acute appendicitis. Small amount of free fluid is present in the peritoneal cavity. No free air or pneumatosis. Periton eal fat has a mildly congested or edematous appearance. No hernia, mass or bulky lymphadenopathy. No suspicious bony findings. Vascular calcifications are present. IMPRESSION: Contrast enhanced CT abdomen and pelvis showing no emergent finding. Camacho of the gastric antrum and duodenal bulb are mildly prominent and could potentially represent a mild antritis/duodenitis. Loops of jejunum show dilatation to 3 cm with wall thickening. This is not an obstructive process but could represent proximal small bowel enteritis. Small amount of free fluid is present with no free air or pneumatosis. There is a mildly congested or edematous appearance to the peritoneal fat. Periportal edema pattern seen in the liver. This is nonspecific but can be seen with acute hepatitis and as a secondary response to a systemic process. Wall thickening of the bladder that is probably artifact of contraction rather than cystitis. Correla tion can be made with clinical and laboratory findings.
--- NOTE | 2022-01-16 17:34 | EDPHYS ---
Physician Documentation [facility] Name: Jewel Cespedes Age: 56 yrs Sex: Male : 1965 Arrival Date: 01/16/2022 Time: 14:38 Bed 23 Private MD: ED Physician Rodolfo Haynes HPI: 01/16 15:11 This 56 yrs old Male presents to ER via EMS with complaints of Syncope. gia 15:11 The patient has experienced syncope, became unresponsive. Onset: The symptoms/episode gia began/occurred just prior to arrival. Duration: This was a single episode, that lasted 10 second(s). Context: the episode(s) was witnessed, by family, by a friend. Associated injury: The patient did not suffer any apparent associated injury. Associated signs and symptoms: The patient has no apparent associated signs or symptoms. Current symptoms: Currently, the patient is not experiencing any symptoms. The patient has not experienced similar symptoms in the past. Historical: - Allergies: 14:46 NKA; ss - PMHx: 14:46 Alcoholism; Asthma; Hypertension; Hypothyroidism; Myocardial infarction; Anxiety; ss Schizophrenia; - Immunization history:: Client reports receiving the 2nd dose of the Covid vaccine. - Social history:: Smoking status: Patient reports the use of cigarette tobacco products, smokes two packs cigarettes per day. - Family history:: not pertinent. ROS: 15:11 Constitutional: Negative for fever, chills, and weight loss, Eyes: Negative for injury, gia pain, redness, and discharge, ENT: Negative for injury, pain, and discharge, Neck: Negative for injury, pain, and swelling, Cardiovascular: Negative for chest pain, palpitations, and edema, Respiratory: Negative for shortness of breath, cough, wheezing, and pleuritic chest pain, Abdomen/GI: Negative for abdominal pain, nausea, vomiting, diarrhea, and constipation, Back: Negative for injury and pain, : Negative for injury, bleeding, discharge, and swelling, MS/Extremity: Negative for injury and deformity, Psych: Negative for depression, anxiety, suicide ideation, homicidal ideation, and hallucinations, Allergy/Immunology: Negative for hives, rash, and allergies, Endocrine: Negative for neck swelling, polydipsia, polyuria, polyphagia, and marked weight changes, Hematologic/Lymphatic: Negative for swollen nodes, abnormal bleeding, and unusual bruising. 15:11 Skin: Positive for pallor. 15:11 Neuro: Positive for syncope. Exam: 15:11 Constitutional: This is a well developed, well nourished patient who is awake, alert, gia and in no acute distress. Head/Face: Normocephalic, atraumatic. Eyes: Pupils equal round and reactive to light, extra-ocular motions intact. Lids and lashes normal. Conjunctiva and sclera are non-icteric and not injected. Cornea within normal limits. Periorbital areas with no swelling, redness, or edema. ENT: Nares patent. No nasal discharge, no septal abnormalities noted. Tympanic membranes are normal and external auditory canals are clear. Oropharynx with no redness, swelling, or masses, exudates, or evidence of obstruction, uvula midline. Mucous membranes moist. Neck: Trachea midline, no thyromegaly or masses palpated, and no cervical lymphadenopathy. Supple, full range of motion without nuchal rigidity, or vertebral point tenderness. No Meningismus. Chest/axilla: Normal chest wall appearance and motion. Nontender with no deformity. No lesions are appreciated. Cardiovascular: Regular rate and rhythm with a normal S1 and S2. No gallops, murmurs, or rubs. Normal PMI, no JVD. No pulse deficits. Respiratory: Lungs have equal breath sounds bilaterally, clear to auscultation and percussion. No rales, rhonchi or wheezes noted. No increased work of breathing, no retractions or nasal flaring. Abdomen/GI: Soft, non-tender, with normal bowel sounds. No distension or tympany. No guarding or rebound. No evidence of tenderness throughout. Back: No spinal tenderness. No costovertebral tenderness. Full range of motion. MS/ Extremity: Pulses equal, no cyanosis. Neurovascular intact. Full, normal range of motion. Neuro: Awake and alert, GCS 15, oriented to person, place, time, and situation. Cranial nerves II-XII grossly intact. Motor strength 5/5 in all extremities. Sensory grossly intact. Cerebellar exam normal. Normal gait. Psych: Awake, alert, with orientation to person, place and time. Behavior, mood, and affect are within normal limits. 15:11 Abdomen/GI: Inspection: abdomen appears normal, Bowel sounds: normal, Palpation: mild abdominal tenderness, in the epigastric area, right upper quadrant and left upper quadrant, Liver: no appreciated palpable abnormalities, Hernia: not appreciated. 15:11 Musculoskeletal/extremity: DVT Exam: No signs of deep vein thrombosis. no pain, no swelling, no tenderness, negative Homans' sign noted on exam, no appreciated bluish discoloration, no erythema, no increased warmth. 15:11 Skin: Appearance: Color: pale, abscess, not appreciated, cellulitis, is not appreciated, induration, is not appreciated. 15:11 Neuro: Orientation: is normal, appropriate for stated age, no acute changes, Mentation: is normal, appropriate for stated age, no acute changes, Memory: is normal, appropriate for stated age, no acute changes, Cranial nerves: grossly normal, is grossly normal based on the patient's age, no acute changes, Cerebellar function: is grossly normal, is grossly normal based on the patient's age, no acute changes, Motor: moves all fours, strength is normal, Sensation: is normal, no obvious gross deficits, appropriate no acute changes, Gait: not applicable Deep tendon reflexes are 2+ (normal) in the bilateral brachioradialis, bicep, tricep and patellar and Achilles tendons. 15:15 Abdomen/GI: Rectal exam: is unremarkable, Prostate: normal, rectal tone normal, Stool: [facility] guaiac negative, hemorrhoid(s), are not appreciated, mass, is not appreciated, swelling, is not appreciated, tenderness, is not appreciated, fecal impaction, is not appreciated. 15:37 ECG was reviewed by the Attending Physician. [facility] Vital Signs: 14:40 BP 105 / 76; Pulse 57; Resp 16; Temp 97.6(TE); Pulse Ox 97% on R/A; Height 6 ft. 2 in. ss (187.96 cm); Pain 2/10; 15:15 BP 111 / 77; Pulse 57; Resp 14; Pulse Ox 100% on R/A; Pain 0/10; jb4 16:30 BP 110 / 85; Pulse 54; Resp 15; Pulse Ox 99% on R/A; jb4 17:17 BP 104 / 78 RA Supine; Pulse 66; Resp 16; Pulse Ox 99% on R/A; dh3 17:19 BP 118 / 89 RA Sitting; Pulse 80; Resp 16; Pulse Ox 99% on R/A; dh3 17:21 BP 120 / 81 RA Standing; Pulse 86; Resp 17; Pulse Ox 99% on R/A; dh3 17:56 BP 129 / 91; Pulse 63; Resp 18; Pulse Ox 100% on R/A; jb4 19:30 BP 100 / 79; Pulse 57; Resp 16; Pulse Ox 95% on R/A; jb4 20:30 BP 95 / 64; Pulse 60; Resp 18; Pulse Ox 92% on R/A; jb4 21:58 BP 92 / 68; Pulse 62; Resp 16; Pulse Ox 95% on R/A; jb4 MDM: 14:44 Patient medically screened. gia 15:16 Differential Diagnosis: cardiac arrhythmia, cerebrovascular accident, drug effect, gia emotional response, GI bleed, idiopathic syncope, transient ischemic attack, vasovagal episode. Data reviewed: vital signs, nurses notes, lab test result(s), EKG, radiologic studies. Data interpreted: quality assurance monitor final: rate is 57 beats/min, rhythm is regular, Pulse oximetry: on room air is 97 %. Test interpretation: by ED physician or midlevel provider: ECG, plain radiologic studies. Counseling: I had a detailed discussion with the patient and/or guardian regarding: the historical points, exam findings, and any diagnostic results supporting the discharge/admit diagnosis, lab results, radiology results. 01/16 14:58 Order name: Basic Metabolic Panel; Complete Time: 16:01 gia 01/16 14:58 Order name: CBC with Diff; Complete Time: 16:01 gia 01/16 14:58 Order name: LFT's; Complete Time: 16:01 gia 01/16 14:58 Order name: Magnesium; Complete Time: 16:01 gia 01/16 14:58 Order name: NT PRO-BNP; Complete Time: 16:01 gia 01/16 14:58 Order name: PT-INR; Complete Time: 16:01 gia 01/16 14:58 Order name: Troponin HS; Complete Time: 16:01 gia 01/16 14:58 Order name: Lipase; Complete Time: 16:01 gia 01/16 14:58 Order name: AMMONIA; Complete Time: 16:01 gia 01/16 14:58 Order name: Type And Screen; Complete Time: 16:25 gia 01/16 15:28 Order name: Occult Blood--Ancillary; Complete Time: 16:25 01/16 17:09 Order name: ABO/RH no charge; Complete Time: 17:17 [facility] 01/16 18:29 Order name: Urine Dipstick-Ancillary; Complete Time: 19:04 [facility] 01/16 14:58 Order name: XRAY Chest (1 view); Complete Time: 16:01 [facility] 01/16 14:58 Order name: EKG; Complete Time: 14:59 [facility] 01/16 14:58 Order name: Cardiac monitoring; Complete Time: 15:22 [facility] 01/16 14:58 Order name: EKG - Nurse/Tech; Complete Time: 15:22 [facility] 01/16 14:58 Order name: IV Saline Lock; Complete Time: 15:00 [facility] 01/16 15:03 Order name: CT Head Brain wo Cont; Complete Time: 17:17 [facility] 01/16 15:03 Order name: CT Abd/Pelvis - IV Contrast Only; Complete Time: 17:17 [facility] 01/16 16:01 Order name: Diet Regular; Complete Time: 16:02 [facility] 01/16 18:52 Order name: SARS-COV-2 RT PCR [facility] 01/16 14:58 Order name: Labs collected and sent; Complete Time: 15:22 [facility] 01/16 14:58 Order name: O2 Per Protocol; Complete Time: 15:00 [facility] 01/16 14:58 Order name: O2 Sat Monitoring; Complete Time: 15:00 [facility] 01/16 14:58 Order name: Urine Dipstick-Ancillary (obtain specimen); Complete Time: 18:43 [facility] 01/16 16:01 Order name: PO challenge; Complete Time: 16:35 [facility] 01/16 16:33 Order name: Orthostatics; Complete Time: 17:26 [facility] EC:37 Rate is 57 beats/min. Rhythm is regular. QRS Manley is Normal. NE interval is normal. QRS gia interval is normal. QT interval is normal. No Q waves. T waves are Normal. No ST changes noted. Clinical impression: Sinus bradycardia and No evidence of ischemia. Interpreted by me. Reviewed by me. Administered Medications: 15:29 Drug: NS 0.9% 500 ml Route: IV; Rate: bolus; Site: left antecubital; jb4 18:26 Follow up: Response: No adverse reaction; IV Status: Completed infusion; IV Intake: jb4 500ml 15:29 Drug: Thiamine 100 mg Route: IV; Rate: per protocol; Site: left antecubital; jb4 15:31 Follow up: Response: No adverse reaction; IV Status: Completed infusion jb4 17:56 Drug: Flagyl (metroNIDAZOLE) 500 mg Volume: 100 ml; Route: IVPB; Rate: 200 ml/hr; jb4 Infused Over: 30 mins; Site: left antecubital; 18:26 Follow up: Response: No adverse reaction; IV Status: Completed infusion; IV Intake: jb4 100ml 17:56 Drug: ProTONIX (pantoprazole) 80 mg Route: IVP; Site: left antecubital; jb4 18:28 Follow up: Response: No adverse reaction jb4 18:35 Drug: Cipro (ciprofloxacin) 400 mg Volume: 200 ml; Route: IVPB; Infused Over: 60 mins; jb4 Site: left antecubital; 19:43 Follow up: Response: No adverse reaction; Marked relief of symptoms; IV Status: jb4 Completed infusion; IV Intake: 200ml 18:56 Drug: morphine 2 mg Route: IVP; Site: left antecubital; jb4 19:43 Follow up: Response: No adverse reaction; Marked relief of symptoms; Pain is decreased jb4 21:25 Drug: NS 0.9% 500 ml Route: IV; Rate: bolus; Site: left antecubital; jb4 21:59 Follow up: Response: No adverse reaction; IV Status: Completed infusion; IV Intake: jb4 500ml Disposition Summary: 01/16/22 17:33 Hospitalization Ordered Hospitalization Status: Observation gia Provider: Alfred Miranda cha Location: Telemetry/MedSurg (observation) gia Condition: Stable gia Problem: new gia Symptoms: have improved gia Bed/Room Type: Standard gia Room Assignment: 218(01/16/22 21:12) vc1 Diagnosis - Acute gastritis gia - Acute gastritis without bleeding gia - Duodenitis gia - Abdominal tenderness - small bowel enteritis gia Forms: - Medication Reconciliation Form gia - SBAR form gia Signatures: Dispatcher [employer] Millie Rosario RN RN mw Anderson, Corey, MD MD cha Smirch, Shelby, RN RN ss Bryson, James, RN RN jb4 Penelope Campbell RN RN vc1 Meggan Mares PA PA sb3 Corrections: (The following items were deleted from the chart) 18:52 18:16 COVID 19 CPL+BRZ ordered. EDMS EDMS 20:21 17:33 gia mw 21:12 20:21 219 mw vc1
--- NOTE | 2022-01-16 17:34 | ER ---
Nurse's Notes [facility] Name: eJwel Cespedes Age: 56 yrs Sex: Male : 1965 Arrival Date: 01/16/2022 Time: 14:38 Bed 23 Private MD: Diagnosis: Acute gastritis;Acute gastritis without bleeding;Duodenitis;Abdominal tenderness-small bowel enteritis Presentation: 01/16 14:40 Chief complaint: Patient states: Syncopal episode while in a seated position. Pt's ss friends state that he was sitting in a chair, c/o dizziness when he passed out. Upon arrival home, BP was initially 80/50 pulse 55. After Zofran 4 mg and 1000 mL, Pt reports that nausea and dizziness has improved, but c/o mild abd pain at this time. Coronavirus screen: Client denies travel out of the [place] in the last 14 days. Ebola Screen: Patient denies exposure to infectious person. Patient denies travel to an Ebola-affected area in the 21 days before illness onset. Initial Sepsis Screen: Does the patient meet any 2 criteria? No. Patient's initial sepsis screen is negative. Does the patient have a suspected source of infection? No. Patient's initial sepsis screen is negative. Risk Assessment: Do you want to hurt yourself or someone else? Patient reports no desire to harm self or others. Onset of symptoms was January 16, 2022. Care prior to arrival: Medication(s) given: Normal saline infusion, 1000 mL, zofran 4 mg, IV initiated. 18 GA, in the left antecubital area, Glucose check: 108. 14:40 Method Of Arrival: EMS: [facility] 14:40 Acuity: KAREN 3 ss Historical: - Allergies: 14:46 NKA; ss - PMHx: 14:46 Alcoholism; Asthma; Hypertension; Hypothyroidism; Myocardial infarction; Anxiety; ss Schizophrenia; - Immunization history:: Client reports receiving the 2nd dose of the Covid vaccine. - Social history:: Smoking status: Patient reports the use of cigarette tobacco products, smokes two packs cigarettes per day. - Family history:: not pertinent. Screenin:58 Abuse screen: Denies threats or abuse. Nutritional screening: No deficits noted. jb4 Tuberculosis screening: No symptoms or risk factors identified. Fall Risk Fall in past 12 months (25 points). IV access (20 points). Total Quiroz Fall Scale indicates High Risk Score (45 or more points). Fall prevention measures have been instituted. Side Rails Up X 2 Placed Close to Nursing Station Frequent Obs/Assessments Occuring As available patient and family educated on Fall Prevention Program and Strategies. Assessment: 14:58 General: Appears in no apparent distress. comfortable, Behavior is calm, cooperative, jb4 appropriate for age. Pain: Denies pain. Neuro: Level of Consciousness is awake, alert, obeys commands, Oriented to person, place, time, situation. Cardiovascular: Patient's skin is warm and dry. Respiratory: Airway is patent Respiratory effort is even, unlabored, Respiratory pattern is regular, symmetrical. GI: No signs and/or symptoms were reported involving the gastrointestinal system. : No signs and/or symptoms were reported regarding the genitourinary system. EENT: No signs and/or symptoms were reported regarding the EENT system. Derm: Skin is intact, Skin is pink, warm \\T\\ dry. Musculoskeletal: Circulation, motion, and sensation intact. Range of motion: intact in all extremities. 16:36 Reassessment: Patient appears in no apparent distress at this time. Patient and/or jb4 family updated on plan of care and expected duration. Pain level reassessed. Patient is alert, oriented x 3, equal unlabored respirations, skin warm/dry/pink. 17:56 Reassessment: Patient appears in no apparent distress at this time. Patient and/or jb4 family updated on plan of care and expected duration. Pain level reassessed. Patient is alert, oriented x 3, equal unlabored respirations, skin warm/dry/pink. 19:00 Reassessment: Patient appears in no apparent distress at this time. Patient and/or jb4 family updated on plan of care and expected duration. Pain level reassessed. Patient is alert, oriented x 3, equal unlabored respirations, skin warm/dry/pink. 20:00 Reassessment: Patient appears in no apparent distress at this time. Patient and/or jb4 family updated on plan of care and expected duration. Pain level reassessed. Patient is alert, oriented x 3, equal unlabored respirations, skin warm/dry/pink. 21:00 Reassessment: Patient appears in no apparent distress at this time. Patient and/or jb4 family updated on plan of care and expected duration. Pain level reassessed. Patient is alert, oriented x 3, equal unlabored respirations, skin warm/dry/pink. 21:47 Reassessment: Pt's sister, Joselyn, called for update on pt POC. Pt okayed ED staff to jb4 speak with this sister. Updated sister on POC, sister expressed concern for earlier syncopal episode stating " this is not the first time this has happened. He has been passing out daily and it is becoming more frequent.". Informed admitting provider of conversation with pt's sister. Provider verbalized intent on talking with sister. Vital Signs: 14:40 BP 105 / 76; Pulse 57; Resp 16; Temp 97.6(TE); Pulse Ox 97% on R/A; Height 6 ft. 2 in. ss (187.96 cm); Pain 2/10; 15:15 BP 111 / 77; Pulse 57; Resp 14; Pulse Ox 100% on R/A; Pain 0/10; jb4 16:30 BP 110 / 85; Pulse 54; Resp 15; Pulse Ox 99% on R/A; jb4 17:17 BP 104 / 78 RA Supine; Pulse 66; Resp 16; Pulse Ox 99% on R/A; dh3 17:19 BP 118 / 89 RA Sitting; Pulse 80; Resp 16; Pulse Ox 99% on R/A; dh3 17:21 BP 120 / 81 RA Standing; Pulse 86; Resp 17; Pulse Ox 99% on R/A; dh3 17:56 BP 129 / 91; Pulse 63; Resp 18; Pulse Ox 100% on R/A; jb4 19:30 BP 100 / 79; Pulse 57; Resp 16; Pulse Ox 95% on R/A; jb4 20:30 BP 95 / 64; Pulse 60; Resp 18; Pulse Ox 92% on R/A; jb4 21:58 BP 92 / 68; Pulse 62; Resp 16; Pulse Ox 95% on R/A; jb4 ED Course: 14:38 Patient arrived in ED. ss 14:44 Rodolfo Haynes MD is Attending Physician. [facility] 14:46 Triage completed. ss 14:46 Arm band placed on right wrist. 14:58 Delonte Perdomo, JORDY is Primary Nurse. [facility] 14:58 Patient has correct armband on for positive identification. Bed in low position. Call jb4 light in reach. Side rails up X 1. Pulse ox on. NIBP on. 15:04 Maintain EMS IV. Dressing intact. Good blood return noted. Site clean \\T\\ dry. Gauge \\T\\ bri 4 site: 18g LAC. 15:12 XRAY Chest (1 view) In Process Unspecified. EDMS 15:23 Type And Screen Sent. jb4 15:23 AMMONIA Sent. jb4 15:23 Basic Metabolic Panel Sent. jb4 15:23 CBC with Diff Sent. jb4 15:23 LFT's Sent. jb4 15:23 Magnesium Sent. jb4 15:23 NT PRO-BNP Sent. jb4 15:23 PT-INR Sent. jb4 15:23 Troponin HS Sent. jb4 16:05 Repeat lab(s) drawn. by me, sent to lab. eh3 16:20 CT Head Brain wo Cont In Process Unspecified. EDMS 16:20 CT Abd/Pelvis - IV Contrast Only In Process Unspecified. EDMS 17:30 Alfred Miranda MD is Hospitalizing Provider. gia 21:58 No provider procedures requiring assistance completed. Patient admitted, IV remains in jb4 place. Administered Medications: 15:29 Drug: NS 0.9% 500 ml Route: IV; Rate: bolus; Site: left antecubital; jb4 18:26 Follow up: Response: No adverse reaction; IV Status: Completed infusion; IV Intake: jb4 500ml 15:29 Drug: Thiamine 100 mg Route: IV; Rate: per protocol; Site: left antecubital; jb4 15:31 Follow up: Response: No adverse reaction; IV Status: Completed infusion jb4 17:56 Drug: Flagyl (metroNIDAZOLE) 500 mg Volume: 100 ml; Route: IVPB; Rate: 200 ml/hr; jb4 Infused Over: 30 mins; Site: left antecubital; 18:26 Follow up: Response: No adverse reaction; IV Status: Completed infusion; IV Intake: jb4 100ml 17:56 Drug: ProTONIX (pantoprazole) 80 mg Route: IVP; Site: left antecubital; jb4 18:28 Follow up: Response: No adverse reaction jb4 18:35 Drug: Cipro (ciprofloxacin) 400 mg Volume: 200 ml; Route: IVPB; Infused Over: 60 mins; jb4 Site: left antecubital; 19:43 Follow up: Response: No adverse reaction; Marked relief of symptoms; IV Status: jb4 Completed infusion; IV Intake: 200ml 18:56 Drug: morphine 2 mg Route: IVP; Site: left antecubital; jb4 19:43 Follow up: Response: No adverse reaction; Marked relief of symptoms; Pain is decreased jb4 21:25 Drug: NS 0.9% 500 ml Route: IV; Rate: bolus; Site: left antecubital; jb4 21:59 Follow up: Response: No adverse reaction; IV Status: Completed infusion; IV Intake: jb4 500ml Intake: 18:26 IV: 100ml; Total: 100ml. jb4 18:26 IV: 500ml; Total: 600ml. jb4 19:43 IV: 200ml; Total: 800ml. jb4 21:59 IV: 500ml; Total: 1300ml. jb4 Outcome: 17:33 Decision to Hospitalize by Provider. gia 21:58 Admitted to Med/surg accompanied by tech, via wheelchair, room 218, with chart. 4 21:58 Condition: stable 21:58 Discharge instructions given to patient, family, Instructed on the need for admit, Demonstrated understanding of instructions. 21:59 Patient left the ED. jb4 Signatures: Dispatcher [employer] EDMS Rodolfo Haynes MD MD cha Smirch, Shelby, RN Delonte Nino RN RN [facility] Mariana Courtney [facility] Arianna Drake [facility] Corrections: (The following items were deleted from the chart) 17:28 17:17 BP 104 / 78; Pulse 66bpm; Resp 16bpm; Pulse Ox 99% RA; 3 [facility]
[2022-01-16] MEDS ORDERED: PANTOPRAZOLE 40 MG INJ ONE (17:51)
[2022-01-16] MEDS ORDERED: CIPROFLOXACIN 400mg IV 400 MG/200 ML BAG IV ONE (17:51)
[2022-01-16] MEDS ORDERED: METRONIDAZOLE 500mg IVPB 500 MG/100 ML BAG IV ONE (17:51)
[2022-01-16 18:29] LABS: Urine Blood Negative (Negative); Urine Glucose Negative (Negative); Urine Protein 1+ (Negative); Urine Specific Gravity 1.025 (1.005-1.030); Urine pH 6.5 (5.0-7.0)
[2022-01-16] MEDS ORDERED: MORPHINE 2 MG/ML SYR ONE (18:52)
--- NOTE | 2022-01-16 18:52 | P.HP ---
Certification for Inpatient Patient admitted to: Observation With expected LOS: <2 Midnights Patient will require the following post-hospital care: None Practitioner: I am a practitioner with admitting privileges, knowledge of patient current condition, hospital course, and medical plan of care. Services: Services provided to patient in accordance with Admission requirements found in Title 42 Section 412.3 of the Code of Federal Regulations Patient History Date of Service: 01/16/22 Reason for admission: Gastritis/Enteritis History of Present Illness: Patient is a 56-year-old male with past medical history of hypertension, prior [place], hypothyroidism, schizophrenia, alcoholism who presented to the ED via EMS after syncopal episode. Patient states he was sitting on the porch with his friend, got dizzy, and passed out. When EMS arrived, his blood pressure was 80/50. Given Zofran and 1 L bolus in route. In the ED, head CT negative. CT abdomen pelvis suggested enteritis/duodenitis/enteritis. Patient's rectal/prostate exam was unremarkable. Hemoccult negative. Hemoglobin stable. He was given 80 of Protonix, Flagyl, Cipro, and thiamine. Patient states he is no longer drinking. Aníbal was consulted and wishes to keep patient for observation with a gentle diet. Upon my assessment, patient was not very cooperative with answering questions. He is complaining of abdominal pain and is not wanting to stay in the hospital. I explained the risks of him leaving and he agreed to stay. Allergies No Known Drug Allergies Allergy (Verified 07/22/15 02:39) Unknown No Known Allergies Allergy (Uncoded 12/12/17 10:22) Unknown Home medications list reviewed: Yes Home Medications: Albuterol Sulfate [Proair Hfa] 1 puff IN Q4HP PRN 07/22/15 Alprazolam 1 mg PO BID PRN 07/22/15 Levothyroxine Sodium 100 mcg PO DAILY 07/22/15 - Past Medical/Surgical History Diabetic: No -: Hypothroidism -: Anxiety -: ADD -: Asthma -: Dyslexia -: Alcoholism Past Surgical History: Unable to obtain (patient uncooperative) Psychosocial/ Personal History: Patient lives at home in [place]. - Family History Mother -: Heart disease, Hypertension, Diabetes - Social History Smoking Status: Current every day smoker Alcohol use: Yes CD- Drugs: Yes Caffeine use: Yes Place of Residence: Home Review of Systems 10-point ROS is otherwise unremarkable Gastrointestinal: Nausea, Abdominal Pain Physical Examination - Physical Exam General: Alert, In no apparent distress, Oriented x3 HEENT: Atraumatic, PERRLA, EOMI, Sclerae nonicteric Neck: Supple, 2+ carotid pulse no bruit, No LAD, Without JVD or thyroid abnormality Respiratory: Clear to auscultation bilaterally, Normal air movement Cardiovascular: Regular rate/rhythm, Normal S1 S2 Gastrointestinal: Normal bowel sounds, No tenderness Musculoskeletal: No tenderness Integumentary: No rashes Neurological: Normal strength at 5/5 x4 extr, Normal tone, Normal affect - Studies Laboratory Data (last 24 hrs) 01/16/22 15:04: PT 13.1 H, INR 1.19 01/16/22 15:04: WBC 4.4, Hgb 10.5 L, Hct 30.4 L, Plt Count 180 01/16/22 15:04: Sodium 136, Potassium 4.0, BUN 13, Creatinine 1.46 H, Glucose 113 H, Magnesium 1.8, Total Bilirubin 0.5, AST 26, ALT 14, Alkaline Phosphatase 37 L, Lipase 99 Microbiology Data (last 24 hrs): 01/16/22 15:28 Stool Occult Blood - Final Assessment and Plan - Problems (Diagnosis) (1) Gastritis and duodenitis Current Visit: Yes Status: Acute (2) Enteritis Current Visit: Yes Status: Acute (3) Syncope Current Visit: Yes Status: Acute Qualifiers: Syncope type: unspecified Qualified Code(s): R55 - Syncope and collapse (4) Hypothyroidism Current Visit: No Status: Chronic Qualifiers: Hypothyroidism type: acquired Qualified Code(s): E03.9 - Hypothyroidism, unspecified (5) Hypertension Current Visit: No Status: Chronic Qualifiers: Hypertension type: primary hypertension Qualified Code(s): I10 - Essential (primary) hypertension (6) History of [place] (myocardial infarction) Current Visit: Yes Status: Chronic - Plan -CT abdomen pelvis without contrast showed a mild antritis/duodenitis and proximal small bowel enteritis. Patient was given Protonix, Flagyl, and ciprofloxacin in the ED. will continue -General surgery has seen patient wishes for him to stay overnight for observation -continue patient on IV fluids overnight along with pain control, antiemetics, and soft diet -Labs and vitals stable at this time -Continue home medications -Lovenox for DVT prophylaxis Discharge Plan: Home Plan to discharge in: 24 Hours - Advance Directives Does patient have a Living Will: No Does patient have a Durable POA for Healthcare: Yes - Code Status/Comfort Care Code Status Assessed: Yes (Full) Critical Care: No Time Spent Managing Pts Care (In Minutes): 70
[2022-01-16] MEDS ORDERED: ZOLPIDEM TARTRATE 5 MG TABLET PO PRN (21:21)
[2022-01-16] MEDS: CIPROFLOXACIN 400mg IV 400 MG/200 ML BAG IV SCH (21:21)
[2022-01-16] MEDS: PANTOPRAZOLE 40 MG INJ IVP SCH (21:21)
[2022-01-16] MEDS ORDERED: SODIUM CHLORIDE 0.9% 10ML INJ IV PRN (21:21)
[2022-01-16] MEDS ORDERED: ONDANSETRON 4 MG/2 ML VIAL IV PRN (21:21)
[2022-01-16] MEDS ORDERED: ACETAMINOPHEN 500 MG TAB PO PRN (21:21)
[2022-01-16] MEDS ORDERED: MORPHINE 2 MG/ML SYR IV PRN (21:21)
[2022-01-16] MEDS ORDERED: LORazepam 2 MG/ML VIAL IV PRN (21:21)
[2022-01-16 22:28] VITALS: BMI 19.2
[2022-01-16] MEDS: NA CHLORIDE 0.9% 1,000 ML IV SCH (23:00)
[2022-01-16 23:45] LABS: Urine Appearance CLEAR (Clear); Urine Bilirubin NEGATIVE (Negative); Urine Blood NEGATIVE (Negative); Urine Color YELLOW (Yellow); Urine Glucose NEGATIVE (Negative); Urine Microscopic Reflex NO UMIC; Urine Protein NEGATIVE (Negative); Urine Specific Gravity >=1.030 (1.005-1.030); Urine pH 5.5 (5.0-7.0)
[2022-01-17] MEDS: METRONIDAZOLE 500mg IVPB 500 MG/100 ML BAG IV SCH ×3 (00:50→16:15)
[2022-01-17 05:09] VITALS: O2SAT 95
[2022-01-17 05:49] LABS: Absolute Lymphocytes (CBC) 1.4 K/uL (0.7-4.9); Hematocrit 31.5 % (39.6-49.0); Lymphocytes % 36.1 % (15.3-44.8); MPV 7.8 fL (7.6-11.3); RBC Red Blood Cell Count 3.44 M/uL (4.33-5.43)
[2022-01-17 06:19] LABS: Albumin 3.6 g/dL (3.4-5.0); Bilirubin Total 0.4 mg/dL (0.2-1.0); Magnesium 1.9 mg/dL (1.8-2.4); Phosphorus 3.7 mg/dL (2.5-4.9); Protein, Total 6.8 g/dL (6.4-8.2)
[2022-01-17 06:32] LABS: Blood Morphology Comment NOT SEEN (NOT SEEN); Platelet Estimate ADEQ; White Blood Cell Scan OK (OK)
[2022-01-17] MEDS: NA CHLORIDE 0.9% 1,000 ML IV SCH ×3 (08:00→18:00)
[2022-01-17] MEDS: PANTOPRAZOLE 40 MG INJ IVP SCH (08:26)
[2022-01-17] MEDS: CIPROFLOXACIN 400mg IV 400 MG/200 ML BAG IV SCH (08:27)
[2022-01-17] MEDS ORDERED: NICOTINE 21 MG/PAT TD SCH (09:00)
[2022-01-17] MEDS ORDERED: ENOXAPARIN 40 MG/0.4 ML SQ SCH (09:00)
[2022-01-17] MEDS ORDERED: HYDROCORTISONE SUC 100 MG INJ IV ONE (10:08)
[2022-01-17] MEDS ORDERED: LEVOTHYROXINE SOD 0.075 MG TAB PO ONE (13:00)
--- NOTE | 2022-01-17 13:26 | P.PN ---
Subjective Date of Service: 01/17/22 Chief Complaint: Gastritis/Enteritis Subjective: Improving (Patient has no pain, tolerated diet today.) Physical Examination - Vital Signs Temperature: 96.7 F Blood Pressure: 113/72 Pulse: 59 Respirations: 16 Pulse Ox (%): 100 - Physical Exam General: Alert, In no apparent distress, Cooperative HEENT: Mucous membr. moist/pink Neck: Supple Respiratory: Clear to auscultation bilaterally Cardiovascular: Regular rate/rhythm Gastrointestinal: Soft and benign, Non-distended, No ascites, No tenderness, No masses, No rebound, No guarding - Studies Laboratory Data (last 24 hrs) 01/16/22 15:04: PT 13.1 H, INR 1.19 01/16/22 15:04: WBC 4.4, Hgb 10.5 L, Hct 30.4 L, Plt Count 180 01/16/22 15:04: Sodium 136, Potassium 4.0, BUN 13, Creatinine 1.46 H, Glucose 113 H, Magnesium 1.8, Total Bilirubin 0.5, AST 26, ALT 14, Alkaline Phosphatase 37 L, Lipase 99 Microbiology Data (last 24 hrs): 01/16/22 15:28 Stool Occult Blood - Final Assessment And Plan - Current Problems (Diagnosis) (1) Enteritis Current Visit: Yes Status: Acute Plan: - advance diet - continue medical management - follow up in clinic for possible EGD
--- NOTE | 2022-01-17 17:02 | P.DS ---
Discharge Date: 01/17/22 Disposition: ROUTINE DISCHARGE Discharge Condition: GOOD Reason for Admission: Gastritis/Enteritis Brief History of Present Illness: Patient is a 56-year-old male with past medical history of hypertension, prior [place], hypothyroidism, schizophrenia, alcoholism who presented to the ED via EMS after syncopal episode. Patient states he was sitting on the porch with his friend, got dizzy, and passed out. When EMS arrived, his blood pressure was 80/50. Given Zofran and 1 L bolus in route. In the ED, head CT negative. CT abdomen pelvis suggested enteritis/duodenitis/enteritis. Patient's rectal/prostate exam was unremarkable. Hemoccult negative. Hemoglobin stable. He was given 80 of Protonix, Flagyl, Cipro, and thiamine. Patient states he is no longer drinking. Aníbal was consulted and wishes to keep patient for observation with a gentle diet. Upon my assessment, patient was not very cooperative with answering questions. He is complaining of abdominal pain and is not wanting to stay in the hospital. I explained the risks of him leaving and he agreed to stay. Vital Signs/Physical Exam: Temp Pulse Resp BP Pulse Ox 96.7 F L 59 16 113/72 100 01/17/22 13:26 01/17/22 13:26 01/17/22 13:26 01/17/22 13:26 01/17/22 13:26 Laboratory Data at Discharge: WBC 3.8 K/uL (4.3-10.9) L 01/17/22 05:40 Hgb 10.6 g/dL (13.6-17.9) L 01/17/22 05:40 Hct 31.5 % (39.6-49.0) L 01/17/22 05:40 Plt Count 187 K/uL (152-406) 01/17/22 05:40 PT 13.1 SECONDS (9.5-12.5) H 01/16/22 15:04 INR 1.19 01/16/22 15:04 Sodium 135 mmol/L (136-145) L 01/17/22 05:40 Potassium 4.0 mmol/L (3.5-5.1) 01/17/22 05:40 BUN 10 mg/dL (7-18) 01/17/22 05:40 Creatinine 1.21 mg/dL (0.55-1.3) 01/17/22 05:40 Glucose 79 mg/dL (74-106) 01/17/22 05:40 Phosphorus 3.7 mg/dL (2.5-4.9) 01/17/22 05:40 Magnesium 1.9 mg/dL (1.8-2.4) 01/17/22 05:40 Total Bilirubin 0.4 mg/dL (0.2-1.0) 01/17/22 05:40 AST 24 U/L (15-37) 01/17/22 05:40 ALT 13 U/L (12-78) 01/17/22 05:40 Alkaline Phosphatase 35 U/L (45-117) L 01/17/22 05:40 Triglycerides 98 mg/dL (<150) 01/17/22 05:40 Cholesterol 190 mg/dL (<200) 01/17/22 05:40 HDL Cholesterol 40 mg/dL (40-60) 01/17/22 05:40 Cholesterol/HDL Ratio 4.75 01/17/22 05:40 Lipase 99 U/L (73-393) 01/16/22 15:04 Home Medications: Albuterol Sulfate [Proair Hfa] 1 puff IN Q4HP PRN 07/22/15 Alprazolam 1 mg PO BID PRN 07/22/15 Levothyroxine Sodium [Synthroid] 150 mcg PO DAILY #30 tablet 01/17/22 levoFLOXacin [Levaquin] 500 mg PO DAILY #5 tab 01/17/22 metroNIDAZOLE [Flagyl] 500 mg PO Q8H #14 tablet 01/17/22 predniSONE [Deltasone] 20 mg PO BID #11 tab 01/17/22 New Medications: metroNIDAZOLE [Flagyl] 500 mg PO Q8H #14 tablet levoFLOXacin [Levaquin] 500 mg PO DAILY #5 tab predniSONE [Deltasone] 20 mg PO BID #11 tab Levothyroxine Sodium [Synthroid] 150 mcg PO DAILY #30 tablet Physician Discharge Instructions: -DC IV and DC home -Follow-up with PCP in 1 to 2 weeks -Follow-up with Gastroenterology and Endocrinology in 1 to 2 weeks -Please call Dr. Miranda at [phone] if any questions regarding hospital stay -Please call nursing station at [phone] if any nursing or medication questions -Return to the emergency room if symptoms worsen Diet: AHA Activity: Fall precautions Followup: NONE,NONE [Primary Care Provider] -
[2022-01-17 17:41] VITALS: BP 119/75; TEMP 97.4
--- NOTE | 2022-01-17 18:00 | CON ---
Date of Consultation: 01/16/2022 Brief History Of Present Illness: The patient is a 56-year-old male with a history of alco holism, hypertension, myocardial infarction, hypothyroidism, schizophrenia, who presents to the ER af ter a syncopal episode just prior to admission. He states he was sitting on his porch for this frien d, got dizzy, passed out. When EMS arrived, his blood pressure was 80/50 by report. He was given IV fluids and he had a CT of his brain, which was by report negative. He additionally had a CT abdomen and pelvis, which showed a possible enteritis, duodenitis type picture. He has a sister who was con tacted by the primary team, who ultimately states that he has been noncompliant with medications and medical care and recommendations. He has been having a history with multiple syncopal episodes by re port as well. Past Medical History: As above, hypothyroidism, anxiety, ADD, asthma, dyslexia, alcoholism, schizoph kena, myocardial infarction. Social History: Admits 2 pack per day smoking for over 40 years. Alcohol use but states he has quit recently, but he cannot recall the exact date. He lives in [place] by report. Family History: Significant for hypertension, diabetes in his mother. He occasionally uses recreati onal drugs. Review of Systems: Ten-point review of systems other than HPI, denies. Physical Examination: General: At the time of my examination, he is awake, alert, and oriented. Psychiatric: He is conversive but has an altered affect with flattening of his overall affect and roy s some rather rapid cycling mood changes even during the course of the examination. HEENT: He is otherwise normocephalic. His sclerae were anicteric. His mucous membranes are moist. His oropharynx is clear. He has poor dentition and a swollen bottom lip. Neck: Supple without JVD. Chest: Expansion excursion. Cardiovascular: Regular rate and rhythm. Pulmonary: Clear to auscultation bilaterally. Abdomen: Soft, nontender, nondistended. No rebound. No guarding. No focal peritonitis. He denies any abdominal pain since being brought to the hospital. Skin: Otherwise dry. Extremities: No clubbing, cyanosis, edema. Vital Signs: His BMI was 19.3. His blood pressure was 92/68, pulse 60, respiratory rate 16, tempera ture 97.4, SpO2 98% on room air. Laboratory Data: Revealed a white blood cell count of 4.4, hemoglobin was 10.5, hematocrit 30.4, anselmo telet count was 180, neutrophils 65%, PT 13.1, INR 1.19. Sodium 136, potassium 4.0, chloride 104, ca rbon dioxide 27, BUN 13, creatinine 1.4, glucose was 113, total bilirubin was 0.5, magnesium 1.8, AST 26, ALT 14, alkaline phosphatase 37. Ammonia was less than 15. Troponin was less than 3 in the nor mal range. Lipase is 99. His TSH was drawn. His urinalysis was essentially negative. His COVID wa s negative. He had a CT of the head, which was officially read as negative noncontrast head CT exam for acute finding. He has undergone slight volume loss since 2018 study. He had an abdomen pelvis C T performed as well on 01/16, which was officially read as wall of the gastric antrum and duodenal bu lb were mildly prominent and could potentially represent a mild antritis/duodenitis. Loops of jejunu m showed dilation of 3 cm with wall thickening. This is not an obstructive process, but could repres ent a proximal small bowel enteritis. Small amount of free fluid is present with no free air or pneu matosis. Mildly congested or edematous appearing the peritoneal fat, periportal edema pattern seen i n the liver. This is nonspecific but can be seen with acute hepatitis and has a secondary response t o systemic process. Wall thickening of the bladder is probably artifact contraction rather than cyst itis. Correlation could be made with clinical laboratory findings. Assessment And Plan: This is a 56-year-old man who comes in after a syncopal episode with a history of alcoholism and recent syncope. An order was sent for a blood alcohol level. However given his hi story, this could be a contributing factor. Next below point, the patient does not appear to have an y gastrointestinal issues at this point of acute nature and as such I recommend medical management an d workup for his syncope. When this is better defined and delineated to make sure there is no cardio vascular, neurologic, or otherwise contributing factors and the diagnosis is achieved, can discuss po ssible need for endoscopy given his findings on recent CT, although he claims to be asymptomatic from these findings. Therefore, he can follow up with as an outpatient as long as he continues to be asy mptomatic throughout his admission. I will follow along with you. VIKKI/ARTIE Voice ID: [id number] Report ID: [id number]
--- NOTE | 2022-01-17 20:06 | CON ---
Reason For Consultation: Consultation called because of syncope. History Of Present Illness: Mr. Cespedes is a 56-year-old right-handed patient who had a long history of alcohol use, schizophrenia, hypothyroidism, hypertension, prior myocardial infarction who comes to [facility] after a syncopal episode. In terms of his alcohol consumption, the pat kinsey said he drinks steadily perhaps up to 12 beers on a day, maybe 6 to 12. The reason for his admi ssion was precipitated after he passed out. He said for a few days or weeks, actually was having loo se stools, could not keep food in and was having diarrhea. He was over at a friend's house, sitting down on the porch. He remembered getting up and as he tried to walk, he apparently passed out. His blood pressure when the EMS arrived was 80/50. He was given a L bolus in the field as he came in, an d Zofran. His head CT scan was unremarkable for any acute ischemic or hemorrhagic stroke. His hernandez p revealed negative occult blood. Abdomen and pelvis CT scan suggested a possible enteritis or lower GI infection. He never developed any focal face, arm, or leg numbness or weakness. No tonic or haresh ayden activity at all and no tremors along with his syncopal episode. There was no tongue biting. No loss of bladder control. Past Medical History: As noted, in addition to dyslexia, asthma, anxiety. Allergies: NO KNOWN DRUG ALLERGIES. Medications: Albuterol 1 puff every 4 hours, alprazolam twice daily, levothyroxine 100 mcg daily. Family History: Heart disease, hypertension, diabetes in mother. Social History: The patient smokes half pack cigarettes daily. Drinks 6 to 12 beers daily. Denies IV drug use. Review of Systems: He reports GI issues of diarrhea, could not hold food down plus poor appetite and some weight loss. Denies any fevers or chills. No myalgias or arthralgias. No rash. Physical Examination: Vital Signs: Blood pressure 113/72, pulse 59, respiratory rate 14 to 16, temperature 97.0, oxygen sa turation 100% on room air, weight is 150 pounds, height 6 feet 2 inches, BMI 19.3. General: Mr. Cespedes is resting in bed. He is in no significant distress. He appears to be dishevele d, poor dentition. HEENT: He is otherwise normocephalic and atraumatic. His sclerae are anicteric. Oropharynx is mois t. Neck: Supple. Chest: Clear. Heart: Regular. Extremities: Show no significant edema or cyanosis. Neurological: Cranial nerves show no focal deficits. Motor, he has no focal weakness in upper or lo wer extremities. Sensation, stocking-glove loss light touch, temperature in legs and arms. Reflexes are depressed in upper and lower extremities. He will be ambulated with physical therapy with gait belt. Laboratory Studies: White blood cell count 3.8, hemoglobin 10.6. INR 1.19, sodium 135. His TSH is extremely elevated at 157, and his free T4 is very low at 0.32. Calcium is low at 8.4. His urine, 1 + total protein, otherwise negative. COVID-19 test is negative. Assessment: Mr. Cespedes is a 56-year-old patient who has severe hypothyroidism, likely the big reason for his symptoms. He has GI issues, unable to maintain weight and has repeated bouts of diarrhea and now syncope likely because of that. Does not have focal neurologic deficits. No stroke in his exam and on brain imaging. He has other comorbid conditions as noted. Plan: 1.Addressed his hypothyroidism. 2.The patient is told of the need to stop drinking alcohol and smoking cigarettes. 3.His comorbid conditions have been managed as appropriate. He may be discharged and follow up with Dr. Green, if needed once his thyroid issue has been addressed ad equately. BOB/ARTIE Voice ID: [id number] Report ID: [id number]
[2022-01-18] MEDS ORDERED: LEVOTHYROXINE SOD 0.125 MG TAB PO SCH (06:30)
[2022-01-18] MEDS ORDERED: LEVOTHYROXINE SODIUM 100 MCG VIAL IV ONE (10:08)
--- NOTE | 2022-01-19 09:44 | EKG ---
Test Date: 2022-01-16 Test Time: 15:17:07 Edi Manager: WAQAR MEASUREMENT RESULTS: Intervals: Rate: 57 SC: 164 QRSD: 84 QT: 426 QTc: 414 [place]: P: 56 SC: 164 QRS: 79 T: -16 INTERPRETIVE STATEMENTS: Sinus bradycardia Septal infarct, age undetermined Abnormal ECG Compared to ECG 06/12/2019 14:59:30 Myocardial infarct finding now present Sinus rhythm no longer present Electronically Signed On 01-19-22 09:36:23 CDT by Danial Portillo
== END 2022-01-17 19:10 | disposition home or self-care (01) ==
LOC: ER 14:15 → ERHOLD 18:57 → 2ND 21:12
PROVIDERS: ADMIT Hospitalist; ATTEND Hospitalist
DX: K52.9 Noninfective gastroenteritis and colitis, unspecified (principal); R55 Syncope and collapse; F10.20 Alcohol dependence, uncomplicated; E03.9 Hypothyroidism, unspecified; K29.80 Duodenitis without bleeding; I10 Essential (primary) hypertension; F20.9 Schizophrenia, unspecified; F41.9 Anxiety disorder, unspecified; F98.8 Other specified behavioral and emotional disorders with onset usually occurring in childhood and adolescence; I25.2 Old myocardial infarction; J45.909 Unspecified asthma, uncomplicated; R48.0 Dyslexia and alexia; Z91.19 Patient's noncompliance with other medical treatment and regimen; F17.210 Nicotine dependence, cigarettes, uncomplicated; Z20.822 Contact with and (suspected) exposure to COVID-19; Z82.49 Family history of ischemic heart disease and other diseases of the circulatory system; Z83.3 Family history of diabetes mellitus
CPT/HCPCS: 96365; 96367; 96361; 93005; 85025 ×2; 80048; 36415; 82140; 86900; 83735 ×2; 86850; 84100; 85610; 80061; 86901; 80076; 82272; 84443; 81003 ×2; 84484; 84439; 83690; 80053; 83880; 70450; 74177; 71045; 96375; 99285; U0003; Q9967; J3411; C9113 ×2; J2270; J7040 ×2; J7030 ×2; J1720; J0744 ×2; G0378 ×2

== ENCOUNTER 2022-06-12 19:40 | Emergency (ER) | payer OTHER ==
--- OUTSIDE RECORDS SUMMARY | 2022-06-12 19:46 | XMS REPORT | Continuity of Care Document ---
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 19-31 code = 2206) CALCIUM (test code = 10.1 MG/DL 8.5-10.5 2208) PROTEIN, TOTAL (test 7.5 G/DL 6.1-8.3 code = 2229) ALBUMIN (test code = 4.8 G/DL 3.5-5.2 2200) CALC GLOBULIN (test 2.7 G/DL 1.9-3.7 code = 2240) CALC A/G RATIO (test 1.8 RATIO 1.0-2.6 code = 2234) BILIRUBIN, TOTAL 0.4 MG/DL See_Comment [Automated message] (test code = 2207) The syste m which generated this result transmitted ref erence range: <=1.2. T he reference range was not used to int erpret this result as normal/abnormal . ALKALINE PHOSPHATASE 51 U/L 40-123 (test code = 2204) AST (test code = 20 U/L 9-50 2217) ALT (test code = 10 U/L 5-50 UNLESS OTH ERWISE 2219) INDICATED, ALL TESTING PERFORM ED ATCLINICAL PATH [facility] [place]. [address] [facility] [place] [address] [facility] DIRECTOR: Kim NAGELIA NUMBER [id number] CAP ACCREDITATION N O. [id number] TSH, THIRD [id number] 06:05:56 Test Item Value Reference Range Interpretation Comments TSH, THIRD GENERATION (test >100.000 UIU/ML 0.400-4.100 H code = 2821) PSA, [id number] 06:05:56 Test Item Value Reference Range Interpretation Comments PSA, TOTAL 2.32 NG/ML See_Comment NOTE: Methodol ogy is Corky (test code = Xi Electroch emiluminescence 2606) Immunoassay tra ceable to WHO reference stand lai 96/760. UNLESS OTHERWIS E INDICATED, ALL TESTING PERFORM ED [facility]CLINICAL PATHOLOGY [facility]. [address] [place] [address] LABORATORY DIRE CTOR: Kim NAGELIA NUMBER [id number] [place]. [id number] [A utomated message] The sy stem which generated this result transmitted ref erence range: <=4.00. The ref erence range was not used to int erpret this result as breann l/abnormal. COMPREHENSIVE METABOLIC [id number] 05:26:29 Test Item Value Reference Range Interpretation Comments GLUCOSE (test code = 101 MG/DL 70-99 H 2216) BUN (test code = 10 MG/DL -2207) CREATININE (test 1.45 MG/DL 0.80-1.40 H code = 2214) eGFR (2020 CKD-EPI) 56 ML/MIN/1.73 >60 L (test code = 95266) CALC BUN/CREAT (test 7 RATIO 6-28 code = 2235) SODIUM (test code = 140 MEQ/L 136-253 1922) POTASSIUM (test code 4.4 MEQ/L 3.5-5.4 = [...] MG/DL See_Comment [Automated message] (test code = 220) The syste m which generated this result transmit shaneka reference range : <=1.2. The refe rence range was not u sed to interpret th is result as normal/abnormal . ALKALINE PHOSPHATASE 50 U/L 40-123 (test code = 2203) AST (test code = 21 U/L 9-50 2217) ALT (test code = 9 U/L 5-50 2218) LIPID [id number] 05:26:29 Test Item Value Reference Range Interpretation [...] MOREINFORMATION , SEE CLIENT ANNOUNCE MENT AT [email or web address] RISK RATIO LDL/HDL 4.07 RATIO <3.55 H (test code = 2238) CBC W/AUTO DIFF WITH [id number] 04:33:40 Test Item Value Reference Range Interpretation [...] = 1036) NUCLEATED RBCS (test 0.0 /100 WBC'S See_Comment [Aut omated code = 1065) message] The sy stem which generated this [...] RBCS 0.00 K/UL 0.00-0.11 (test code = 88799) CBC W/AUTO [id number] 00:00:00 Test Item Value Reference Range Interpretation Comments WBC (test code = 1001) 3.5 K/UL RBC (test code = 1002) 4.43 M/UL HEMOGLOBIN (test code = 1003) 13.5 G/DL HEMATOCRIT (test code = 1004) 38.5 % MCV (test code = 1005) 86.9 fL MCH (test code = 1006) 30.5 PG MCHC (test code = 1007) 35.1 G/DL RDW (test code = 1038) 11.9 % NEUTROPHILS (test code = 1008) 45.5 % LYMPHOCYTES (test code = 1010) 36.4 % MONOCYTES (test code = 1011) 9.2 % EOSINOPHILS (test code = 1012) 5.7 % BASOPHILS (test code = 1013) 2.9 % IMMATURE GRANULOCYTES (test 0.3 % code = 1036) NUCLEATED RBCS (test code = 0.0 /100WBC'S 1065) PLATELET COUNT (test code = 224 K/UL 1015) ABSOLUTE NEUTROPHILS (test code 1.59 K/UL = 1066) ABSOLUTE LYMPHOCYTES (test code 1.27 K/UL = 1067) ABSOLUTE MONOCYTES (test code = 0.32 K/UL 1068) ABSOLUTE EOSINOPHILS (test code 0.20 K/UL = 1040) ABSOLUTE BASOPHILS (test code = 0.10 K/UL 1069) ABS IMMATURE GRANULOCYTES (test 0.01 K/UL code = 1020) ABS NUCLEATED RBCS (test code = 0.00 K/UL 58195) CBC W/AUTO [id number] 00:00:00 Test Item Value Reference Range Interpretation Comments WBC (test code = 1001) 3.5 K/UL RBC (test code = 1002) 4.43 M/UL HEMOGLOBIN (test code = 1003) 13.5 G/DL HEMATOCRIT (test code = 1004) 38.5 % MCV (test code = 1005) 86.9 fL MCH (test code = 1006) 30.5 PG MCHC (test code = 1007) 35.1 G/DL RDW (test code = 1038) 11.9 % NEUTROPHILS (test code = 1008) 45.5 % LYMPHOCYTES (test code = 1010) 36.4 % MONOCYTES (test code = 1011) 9.2 % EOSINOPHILS (test code = 1012) 5.7 % BASOPHILS (test code = 1013) 2.9 % IMMATURE GRANULOCYTES (test 0.3 % code = 1036) NUCLEATED RBCS (test code = 0.0 /100WBC'S 1065) PLATELET COUNT (test code = 224 K/UL 1015) ABSOLUTE NEUTROPHILS (test code 1.59 K/UL = 1066) ABSOLUTE LYMPHOCYTES (test code 1.27 K/UL = 1067) ABSOLUTE MONOCYTES (test code = 0.32 K/UL 1068) ABSOLUTE EOSINOPHILS (test code 0.20 K/UL = 1040) ABSOLUTE BASOPHILS (test code = 0.10 K/UL 1069) ABS IMMATURE GRANULOCYTES (test 0.01 K/UL code = 1020) ABS NUCLEATED RBCS (test code = 0.00 K/UL 33373) CBC W/AUTO [id number] 00:00:00 Test Item Value Reference Range Interpretation Comments WBC (test code = 1001) 3.5 K/UL RBC (test code = 1002) 4.43 M/UL HEMOGLOBIN (test code = 1003) 13.5 G/DL HEMATOCRIT (test code = 1004) 38.5 % MCV (test code = 1005) 86.9 fL MCH (test code = 1006) 30.5 PG MCHC (test code = 1007) 35.1 G/DL RDW (test code = 1038) 11.9 % NEUTROPHILS (test code = 1008) 45.5 % LYMPHOCYTES (test code = 1010) 36.4 % MONOCYTES (test code = 1011) 9.2 % EOSINOPHILS (test code = 1012) 5.7 % BASOPHILS (test code = 1013) 2.9 % IMMATURE GRANULOCYTES (test 0.3 % code = 1036) NUCLEATED RBCS (test code = 0.0 /100WBC'S 1065) PLATELET COUNT (test code = 224 K/UL 1015) ABSOLUTE NEUTROPHILS (test code 1.59 K/UL = 1066) ABSOLUTE LYMPHOCYTES (test code 1.27 K/UL = 1067) ABSOLUTE MONOCYTES (test code = 0.32 K/UL 1068) ABSOLUTE EOSINOPHILS (test code 0.20 K/UL = 1040) ABSOLUTE BASOPHILS (test code = 0.10 K/UL 1069) ABS IMMATURE GRANULOCYTES (test 0.01 K/UL code = 1020) ABS NUCLEATED RBCS (test code = 0.00 K/UL 58766) COMPREHENSIVE METABOLIC [id number] 00:00:00 Test Item Value Reference Range Interpretation Comments GLUCOSE (test code = 2217) 101 MG/DL BUN (test code = 2208) 10 MG/DL CREATININE (test code = 2214) 1.45 MG/DL eGFR (2020 CKD-EPI) (test code 56 ML/MIN/1.73 = 85718) CALC BUN/CREAT (test code = 7 RATIO 2235) SODIUM (test code = 2231) 140 MEQ/L POTASSIUM (test code = 2228) 4.4 MEQ/L CHLORIDE (test code = 2215) 96 MEQ/L CARBON DIOXIDE (test code = 28 MEQ/L 2205) CALCIUM (test code = 2209) 10.3 MG/DL PROTEIN, TOTAL (test code = 8.3 G/DL 2228) ALBUMIN (test code = 2201) 5.2 G/DL CALC GLOBULIN (test code = 3.1 G/DL 2240) CALC A/G RATIO (test code = 1.7 RATIO 223) BILIRUBIN, TOTAL (test code = 0.5 MG/DL 2206) ALKALINE PHOSPHATASE (test 50 U/L code = 2204) AST (test code = 2218) 21 U/L ALT (test code = 2219) 9 U/L COMPREHENSIVE METABOLIC [id number] 00:00:00 Test Item Value Reference Range Interpretation Comments GLUCOSE (test code = 2217) 101 MG/DL BUN (test code = 2208) 10 MG/DL CREATININE (test code = 2214) 1.45 MG/DL eGFR (2020 CKD-EPI) (test code 56 ML/MIN/1.73 = 32935) CALC BUN/CREAT (test code = 7 RATIO 2235) SODIUM (test code = 2231) 140 MEQ/L POTASSIUM (test code = 2228) 4.4 MEQ/L CHLORIDE (test code = 2215) 96 MEQ/L CARBON DIOXIDE (test code = 28 MEQ/L 2205) CALCIUM (test code = 2209) 10.3 MG/DL PROTEIN, TOTAL (test code = 8.3 G/DL 2228) ALBUMIN (test code = 2201) 5.2 G/DL CALC GLOBULIN (test code = 3.1 G/DL 2240) CALC A/G RATIO (test code = 1.7 RATIO 2234) BILIRUBIN, TOTAL (test code = 0.5 MG/DL 2206) ALKALINE PHOSPHATASE (test 50 U/L code = 2204) AST (test code = 2218) 21 U/L ALT (test code = 2219) 9 U/L LIPID [id number] 00:00:00 Test Item Value Reference Range Interpretation Comments CHOLESTEROL (test code = 2210) 257 MG/DL TRIGLYCERIDES (test code = 2232) 113 MG/DL HDL CHOLESTEROL (test code = 2220) 46 MG/DL CALC LDL CHOL (test code = 2237) 187 MG/DL RISK RATIO LDL/HDL (test code = 4.07 RATIO 2238) LIPID [id number] 00:00:00 Test Item Value Reference Range Interpretation Comments CHOLESTEROL (test code = 2210) 257 MG/DL TRIGLYCERIDES (test code = 2232) 113 MG/DL HDL CHOLESTEROL (test code = 2220) 46 MG/DL CALC LDL CHOL (test code = 2237) 187 MG/DL RISK RATIO LDL/HDL (test code = 4.07 RATIO 2238) [id number] 00:00:00 Test Item Value Reference Range Interpretation Comments TSH, THIRD GENERATION (test >100.000 UIU/ML code = 2821) [id number] 00:00:00 Test Item Value Reference Range Interpretation Comments TSH, THIRD GENERATION (test >100.000 UIU/ML code = 2821) [id number] 00:00:00 Test Item Value Reference Range Interpretation Comments TSH, THIRD GENERATION (test >100.000 UIU/ML code = 2821) PSA, [id number] 00:00:00 Test Item Value Reference Range Interpretation Comments PSA, TOTAL (test code = 2606) 2.32 NG/ML PSA, [id number] 00:00:00 Test Item Value Reference Range Interpretation Comments PSA, TOTAL (test code = 2606) 2.32 NG/ML PSA, [id number] 00:00:00 Test Item Value Reference Range Interpretation Comments PSA, TOTAL (test code = 2606) 2.32 NG/ML CBC W/AUTO [id number] 00:00:00 Test Item Value Reference Range Interpretation Comments WBC (test code = 1001) 3.1 K/UL RBC (test code = 1002) 4.49 M/UL HEMOGLOBIN (test code = 1003) 14.9 G/DL HEMATOCRIT (test code = 1004) 41.7 % MCV (test code = 1005) 92.9 fL MCH (test code = 1006) 33.2 PG MCHC (test code = 1007) 35.7 G/DL RDW (test code = 1038) 14.4 % NEUTROPHILS (test code = 1008) 46.8 % LYMPHOCYTES (test code = 1010) 36.1 % MONOCYTES (test code = 1011) 10.5 % EOSINOPHILS (test code = 1012) 4.6 % BASOPHILS (test code = 1013) 2.0 % PLATELET COUNT (test code = 1015) 171 K/UL CBC W/AUTO [id number] 00:00:00 Test Item Value Reference Range Interpretation Comments WBC (test code = 1001) 3.1 K/UL RBC (test code = 1002) 4.49 M/UL HEMOGLOBIN (test code = 1003) 14.9 G/DL HEMATOCRIT (test code = 1004) 41.7 % MCV (test code = 1005) 92.9 fL MCH (test code = 1006) 33.2 PG MCHC (test code = 1007) 35.7 G/DL RDW (test code = 1038) 14.4 % NEUTROPHILS (test code = 1008) 46.8 % LYMPHOCYTES (test code = 1010) 36.1 % MONOCYTES (test code = 1011) 10.5 % EOSINOPHILS (test code = 1012) 4.6 % BASOPHILS (test code = 1013) 2.0 % PLATELET COUNT (test code = 1015) 171 K/UL CBC W/AUTO [id number] 00:00:00 Test Item Value Reference Range Interpretation Comments WBC (test code = 1001) 3.1 K/UL RBC (test code = 1002) 4.49 M/UL HEMOGLOBIN (test code = 1003) 14.9 G/DL HEMATOCRIT (test code = 1004) 41.7 % MCV (test code = 1005) 92.9 fL MCH (test code = 1006) 33.2 PG MCHC (test code = 1007) 35.7 G/DL RDW (test code = 1038) 14.4 % NEUTROPHILS (test code = 1008) 46.8 % LYMPHOCYTES (test code = 1010) 36.1 % MONOCYTES (test code = 1011) 10.5 % EOSINOPHILS (test code = 1012) 4.6 % BASOPHILS (test code = 1013) 2.0 % PLATELET COUNT (test code = 1015) 171 K/UL COMPREHENSIVE METABOLIC [id number] 00:00:00 Test Item Value Reference Range Interpretation Comments GLUCOSE (test code = 2217) 80 MG/DL BUN (test code = 2208) 11 MG/DL CREATININE (test code = 2214) 1.21 MG/DL eGFR AMER. (test code 77 ML/MIN/1.73 = 07634) eGFR NON- AMER. (test 66 ML/MIN/1.73 code = 74561) CALC BUN/CREAT (test code = 9 RATIO 2235) SODIUM (test code = 2231) 139 MEQ/L POTASSIUM (test code = 2228) 4.2 MEQ/L CHLORIDE (test code = 2215) 98 MEQ/L CARBON DIOXIDE (test code = 29 MEQ/L 220) CALCIUM (test code = 2209) 9.9 MG/DL PROTEIN, TOTAL (test code = 8.0 G/DL 2228) ALBUMIN (test code = 2201) 4.9 G/DL CALC GLOBULIN (test code = 3.1 G/DL 2240) CALC A/G RATIO (test code = 1.6 RATIO 223) BILIRUBIN, TOTAL (test code = 0.9 MG/DL 2206) ALKALINE PHOSPHATASE (test 52 U/L code = 2204) AST (test code = 2218) 71 U/L ALT (test code = 2219) 15 U/L COMPREHENSIVE METABOLIC [id number] 00:00:00 Test Item Value Reference Range Interpretation Comments GLUCOSE (test code = 2217) 80 MG/DL BUN (test code = 2208) 11 MG/DL CREATININE (test code = 2214) 1.21 MG/DL eGFR AMER. (test code 77 ML/MIN/1.73 = 23317) eGFR NON- AMER. (test 66 ML/MIN/1.73 code = 85976) CALC BUN/CREAT (test code = 9 RATIO 2235) SODIUM (test code = 2231) 139 MEQ/L POTASSIUM (test code = 2228) 4.2 MEQ/L CHLORIDE (test code = 2215) 98 MEQ/L CARBON DIOXIDE (test code = 29 MEQ/L 220) CALCIUM (test code = 2209) 9.9 MG/DL PROTEIN, TOTAL (test code = 8.0 G/DL 2228) ALBUMIN (test code = 2201) 4.9 G/DL CALC GLOBULIN (test code = 3.1 G/DL 2240) CALC A/G RATIO (test code = 1.6 RATIO 2234) BILIRUBIN, TOTAL (test code = 0.9 MG/DL 2206) ALKALINE PHOSPHATASE (test 52 U/L code = 2204) AST (test code = 2218) 71 U/L ALT (test code = 2219) 15 U/L [id number] 00:00:00 Test Item Value Reference Range Interpretation Comments TSH, THIRD GENERATION (test >100.000 UIU/ML code = 2821) [id number] 00:00:00 Test Item Value Reference Range Interpretation Comments TSH, THIRD GENERATION (test >100.000 UIU/ML code = 2821) [id number] 00:00:00 Test Item Value Reference Range Interpretation Comments TSH, THIRD GENERATION (test >100.000 UIU/ML code = 2821) PSA, [id number] 00:00:00 Test Item Value Reference Range Interpretation Comments PSA, TOTAL (test code = 2606) 3.70 NG/ML PSA, [id number] 00:00:00 Test Item Value Reference Range Interpretation Comments PSA, TOTAL (test code = 2606) 3.70 NG/ML PSA, [id number] 00:00:00 Test Item Value Reference Range Interpretation Comments PSA, TOTAL (test code = 2606) 3.70 NG/ML LIPID [id number] 00:00:00 Test Item Value Reference Range Interpretation Comments CHOLESTEROL (test code = 2210) 149 MG/DL TRIGLYCERIDES (test code = 2232) 89 MG/DL HDL CHOLESTEROL (test code = 2220) 81 MG/DL CALC LDL CHOL (test code = 2237) 51 MG/DL RISK RATIO LDL/HDL (test code = 0.63 RATIO 2238) LIPID [id number] 00:00:00 Test Item Value Reference Range Interpretation Comments CHOLESTEROL (test code = 2210) 149 MG/DL TRIGLYCERIDES (test code = 2232) 89 MG/DL HDL CHOLESTEROL (test code = 2220) 81 MG/DL CALC LDL CHOL (test code = 2237) 51 MG/DL RISK RATIO LDL/HDL (test code = 0.63 RATIO 2238) COMPREHENSIVE METABOLIC [id number] 00:00:00 Test Item Value Reference Range Interpretation Comments GLUCOSE (test code = 2217) 80 MG/DL BUN (test code = 2208) 19 MG/DL CREATININE (test code = 2214) 1.44 MG/DL eGFR AMER. (test code 62 ML/MIN/1.73 = 89750) eGFR NON- AMER. (test 54 ML/MIN/1.73 code = 04643) CALC BUN/CREAT (test code = 13 RATIO 2235) SODIUM (test code = 2231) 139 MEQ/L POTASSIUM (test code = 2228) 4.3 MEQ/L CHLORIDE (test code = 2215) 99 MEQ/L CARBON DIOXIDE (test code = 29 MEQ/L 2206) CALCIUM (test code = 2209) 9.7 MG/DL PROTEIN, TOTAL (test code = 7.6 G/DL 2228) ALBUMIN (test code = 2201) 4.9 G/DL CALC GLOBULIN (test code = 2.7 G/DL 2240) CALC A/G RATIO (test code = 1.8 RATIO 2234) BILIRUBIN, TOTAL (test code = 0.6 MG/DL 2206) ALKALINE PHOSPHATASE (test 55 U/L code = 2204) AST (test code = 2218) 37 U/L ALT (test code = 2219) 13 U/L COMPREHENSIVE METABOLIC [id number] 00:00:00 Test Item Value Reference Range Interpretation Comments GLUCOSE (test code = 2217) 80 MG/DL BUN (test code = 2208) 19 MG/DL CREATININE (test code = 2214) 1.44 MG/DL eGFR AMER. (test code 62 ML/MIN/1.73 = 23062) eGFR NON- AMER. (test 54 ML/MIN/1.73 code = 80885) CALC BUN/CREAT (test code = 13 RATIO 2235) SODIUM (test code = 2231) 139 MEQ/L POTASSIUM (test code = 2228) 4.3 MEQ/L CHLORIDE (test code = 2215) 99 MEQ/L CARBON DIOXIDE (test code = 29 MEQ/L 2206) CALCIUM (test code = 2209) 9.7 MG/DL PROTEIN, TOTAL (test code = 7.6 G/DL 2228) ALBUMIN (test code = 2201) 4.9 G/DL CALC GLOBULIN (test code = 2.7 G/DL 2240) CALC A/G RATIO (test code = 1.8 RATIO 2234) BILIRUBIN, TOTAL (test code = 0.6 MG/DL 2206) ALKALINE PHOSPHATASE (test 55 U/L code = 2204) AST (test code = 2218) 37 U/L ALT (test code = 2219) 13 U/L CBC W/AUTO [id number] 00:00:00 Test Item Value Reference Range Interpretation Comments WBC (test code = 1001) 4.1 K/UL RBC (test code = 1002) 3.98 M/UL HEMOGLOBIN (test code = 1003) 13.2 G/DL HEMATOCRIT (test code = 1004) 37.3 % MCV (test code = 1005) 93.7 fL MCH (test code = 1006) 33.2 PG MCHC (test code = 1007) 35.4 G/DL RDW (test code = 1038) 12.7 % NEUTROPHILS (test code = 1008) 61.0 % LYMPHOCYTES (test code = 1010) 22.0 % MONOCYTES (test code = 1011) 13.3 % EOSINOPHILS (test code = 1012) 2.2 % BASOPHILS (test code = 1013) 1.5 % PLATELET COUNT (test code = 1015) 182 K/UL CBC W/AUTO [id number] 00:00:00 Test Item Value Reference Range Interpretation Comments WBC (test code = 1001) 4.1 K/UL RBC (test code = 1002) 3.98 M/UL HEMOGLOBIN (test code = 1003) 13.2 G/DL HEMATOCRIT (test code = 1004) 37.3 % MCV (test code = 1005) 93.7 fL MCH (test code = 1006) 33.2 PG MCHC (test code = 1007) 35.4 G/DL RDW (test code = 1038) 12.7 % NEUTROPHILS (test code = 1008) 61.0 % LYMPHOCYTES (test code = 1010) 22.0 % MONOCYTES (test code = 1011) 13.3 % EOSINOPHILS (test code = 1012) 2.2 % BASOPHILS (test code = 1013) 1.5 % PLATELET COUNT (test code = 1015) 182 K/UL CBC W/AUTO [id number] 00:00:00 Test Item Value Reference Range Interpretation Comments WBC (test code = 1001) 4.1 K/UL RBC (test code = 1002) 3.98 M/UL HEMOGLOBIN (test code = 1003) 13.2 G/DL HEMATOCRIT (test code = 1004) 37.3 % MCV (test code = 1005) 93.7 fL MCH (test code = 1006) 33.2 PG MCHC (test code = 1007) 35.4 G/DL RDW (test code = 1038) 12.7 % NEUTROPHILS (test code = 1008) 61.0 % LYMPHOCYTES (test code = 1010) 22.0 % MONOCYTES (test code = 1011) 13.3 % EOSINOPHILS (test code = 1012) 2.2 % BASOPHILS (test code = 1013) 1.5 % PLATELET COUNT (test code = 1015) 182 K/UL [id number] 00:00:00 Test Item Value Reference Range Interpretation Comments TSH, THIRD GENERATION (test 95.200 UIU/ML code = 2821) [id number] 00:00:00 Test Item Value Reference Range Interpretation Comments TSH, THIRD GENERATION (test 95.200 UIU/ML code = 2821) [id number] 00:00:00 Test Item Value Reference Range Interpretation Comments TSH, THIRD GENERATION (test 95.200 UIU/ML code = 2821) LIPID [id number] 00:00:00 Test Item Value Reference Range Interpretation Comments CHOLESTEROL (test code = 2210) 164 MG/DL TRIGLYCERIDES (test code = 2232) 66 MG/DL HDL CHOLESTEROL (test code = 2220) 131 MG/DL CALC LDL CHOL (test code = 2237) 20 MG/DL RISK RATIO LDL/HDL (test code = 0.15 RATIO 2238) LIPID [id number] 00:00:00 Test Item Value Reference Range Interpretation Comments CHOLESTEROL (test code = 2210) 164 MG/DL TRIGLYCERIDES (test code = 2232) 66 MG/DL HDL CHOLESTEROL (test code = 2220) 131 MG/DL CALC LDL CHOL (test code = 2237) 20 MG/DL RISK RATIO LDL/HDL (test code = 0.15 RATIO 2238) COMPREHENSIVE METABOLIC [id number] 00:00:00 Test Item Value Reference Range Interpretation Comments GLUCOSE (test code = 2217) 85 MG/DL BUN (test code = 2208) 7 MG/DL CREATININE (test code = 2214) 1.00 MG/DL eGFR AMER. (test code 98 ML/MIN/1.73 = 91290) eGFR NON- AMER. (test 84 ML/MIN/1.73 code = 34900) CALC BUN/CREAT (test code = 7 RATIO 2235) SODIUM (test code = 2231) 140 MEQ/L POTASSIUM (test code = 2228) 4.2 MEQ/L CHLORIDE (test code = 2215) 95 MEQ/L CARBON DIOXIDE (test code = 29 MEQ/L 2206) CALCIUM (test code = 2209) 9.9 MG/DL PROTEIN, TOTAL (test code = 7.8 G/DL 222) ALBUMIN (test code = 2201) 5.0 G/DL CALC GLOBULIN (test code = 2.8 G/DL 2240) CALC A/G RATIO (test code = 1.8 RATIO 2234) BILIRUBIN, TOTAL (test code = 0.9 MG/DL 2206) ALKALINE PHOSPHATASE (test 68 U/L code = 2204) AST (test code = 2218) 45 U/L ALT (test code = 2219) 24 U/L COMPREHENSIVE METABOLIC [id number] 00:00:00 Test Item Value Reference Range Interpretation Comments GLUCOSE (test code = 2217) 85 MG/DL BUN (test code = 2208) 7 MG/DL CREATININE (test code = 2214) 1.00 MG/DL eGFR AMER. (test code 98 ML/MIN/1.73 = 07405) eGFR NON- AMER. (test 84 ML/MIN/1.73 code = 62707) CALC BUN/CREAT (test code = 7 RATIO 2235) SODIUM (test code = 2231) 140 MEQ/L POTASSIUM (test code = 2228) 4.2 MEQ/L CHLORIDE (test code = 2215) 95 MEQ/L CARBON DIOXIDE (test code = 29 MEQ/L 2206) CALCIUM (test code = 2209) 9.9 MG/DL PROTEIN, TOTAL (test code = 7.8 G/DL 222) ALBUMIN (test code = 2201) 5.0 G/DL CALC GLOBULIN (test code = 2.8 G/DL 2240) CALC A/G RATIO (test code = 1.8 RATIO 2234) BILIRUBIN, TOTAL (test code = 0.9 MG/DL 2207) ALKALINE PHOSPHATASE (test 68 U/L code = 2204) AST (test code = 2218) 45 U/L ALT (test code = 2219) 24 U/L [id number] 00:00:00 Test Item Value Reference Range Interpretation Comments TSH, THIRD GENERATION (test 36.610 UIU/ML code = 2821) [id number] 00:00:00 Test Item Value Reference Range Interpretation Comments TSH, THIRD GENERATION (test 36.610 UIU/ML code = 2821) [id number] 00:00:00 Test Item Value Reference Range Interpretation Comments TSH, THIRD GENERATION (test 36.610 UIU/ML code = 2821) [id number] 00:00:00 Test Item Value Reference Range Interpretation Comments TSH, THIRD GENERATION (test code 0.998 UIU/ML = 2821) [id number] 00:00:00 Test Item Value Reference Range Interpretation Comments TSH, THIRD GENERATION (test code 0.998 UIU/ML = 2821) [id number] 00:00:00 Test Item Value Reference Range Interpretation Comments TSH, THIRD GENERATION (test code 0.998 UIU/ML = 2821) CBC W/AUTO [id number] 00:00:00 Test Item Value Reference Range Interpretation Comments WBC (test code = 1001) 4.7 K/UL RBC (test code = 1002) 5.12 M/UL HEMOGLOBIN (test code = 1003) 14.7 G/DL HEMATOCRIT (test code = 1004) 43.3 % MCV (test code = 1005) 84.6 fL MCH (test code = 1006) 28.7 PG MCHC (test code = 1007) 33.9 G/DL RDW (test code = 1038) 13.4 % NEUTROPHILS (test code = 1008) 55.6 % LYMPHOCYTES (test code = 1010) 32.0 % MONOCYTES (test code = 1011) 8.1 % EOSINOPHILS (test code = 1012) 2.8 % BASOPHILS (test code = 1013) 1.5 % PLATELET COUNT (test code = 1015) 219 K/UL CBC W/AUTO [id number] 00:00:00 Test Item Value Reference Range Interpretation Comments WBC (test code = 1001) 4.7 K/UL RBC (test code = 1002) 5.12 M/UL HEMOGLOBIN (test code = 1003) 14.7 G/DL HEMATOCRIT (test code = 1004) 43.3 % MCV (test code = 1005) 84.6 fL MCH (test code = 1006) 28.7 PG MCHC (test code = 1007) 33.9 G/DL RDW (test code = 1038) 13.4 % NEUTROPHILS (test code = 1008) 55.6 % LYMPHOCYTES (test code = 1010) 32.0 % MONOCYTES (test code = 1011) 8.1 % EOSINOPHILS (test code = 1012) 2.8 % BASOPHILS (test code = 1013) 1.5 % PLATELET COUNT (test code = 1015) 219 K/UL CBC W/AUTO [id number] 00:00:00 Test Item Value Reference Range Interpretation Comments WBC (test code = 1001) 4.7 K/UL RBC (test code = 1002) 5.12 M/UL HEMOGLOBIN (test code = 1003) 14.7 G/DL HEMATOCRIT (test code = 1004) 43.3 % MCV (test code = 1005) 84.6 fL MCH (test code = 1006) 28.7 PG MCHC (test code = 1007) 33.9 G/DL RDW (test code = 1038) 13.4 % NEUTROPHILS (test code = 1008) 55.6 % LYMPHOCYTES (test code = 1010) 32.0 % MONOCYTES (test code = 1011) 8.1 % EOSINOPHILS (test code = 1012) 2.8 % BASOPHILS (test code = 1013) 1.5 % PLATELET COUNT (test code = 1015) 219 K/UL COMPREHENSIVE METABOLIC [id number] 00:00:00 Test Item Value Reference Range Interpretation Comments GLUCOSE (test code = 2217) 83 MG/DL BUN (test code = 2208) 12 MG/DL CREATININE (test code = 2214) 1.53 MG/DL eGFR AMER. (test code 59 ML/MIN/1.73 = 74183) eGFR NON- AMER. (test 51 ML/MIN/1.73 code = 95202) CALC BUN/CREAT (test code = 8 RATIO 2235) SODIUM (test code = 2231) 139 MEQ/L POTASSIUM (test code = 2228) 4.6 MEQ/L CHLORIDE (test code = 2215) 96 MEQ/L CARBON DIOXIDE (test code = 32 MEQ/L 2206) CALCIUM (test code = 2209) 9.7 MG/DL PROTEIN, TOTAL (test code = 7.6 G/DL 2228) ALBUMIN (test code = 2201) 4.8 G/DL CALC GLOBULIN (test code = 2.8 G/DL 2240) CALC A/G RATIO (test code = 1.7 RATIO 2234) BILIRUBIN, TOTAL (test code = 0.8 MG/DL 2206) ALKALINE PHOSPHATASE (test 65 U/L code = 2204) AST (test code = 2218) 29 U/L ALT (test code = 2219) 16 U/L COMPREHENSIVE METABOLIC [id number] 00:00:00 Test Item Value Reference Range Interpretation Comments GLUCOSE (test code = 2217) 83 MG/DL BUN (test code = 2208) 12 MG/DL CREATININE (test code = 2214) 1.53 MG/DL eGFR AMER. (test code 59 ML/MIN/1.73 = 66856) eGFR NON- AMER. (test 51 ML/MIN/1.73 code = 83838) CALC BUN/CREAT (test code = 8 RATIO 2235) SODIUM (test code = 2231) 139 MEQ/L POTASSIUM (test code = 2228) 4.6 MEQ/L CHLORIDE (test code = 2215) 96 MEQ/L CARBON DIOXIDE (test code = 32 MEQ/L 220) CALCIUM (test code = 2209) 9.7 MG/DL PROTEIN, TOTAL (test code = 7.6 G/DL 2228) ALBUMIN (test code = 2201) 4.8 G/DL CALC GLOBULIN (test code = 2.8 G/DL 2240) CALC A/G RATIO (test code = 1.7 RATIO 2234) BILIRUBIN, TOTAL (test code = 0.8 MG/DL 2206) ALKALINE PHOSPHATASE (test 65 U/L code = 2204) AST (test code = 2218) 29 U/L ALT (test code = 2219) 16 U/L [id number] 00:00:00 Test Item Value Reference Range Interpretation Comments TSH (test code = 2821) >100.000 UIU/ML [id number] 00:00:00 Test Item Value Reference Range Interpretation Comments TSH (test code = 2821) >100.000 UIU/ML [id number] 00:00:00 Test Item Value Reference Range Interpretation Comments TSH (test code = 2821) >100.000 UIU/ML LIPID [id number] 00:00:00 Test Item Value Reference Range Interpretation Comments CHOLESTEROL (test code = 2210) 201 MG/DL TRIGLYCERIDES (test code = 2232) 154 MG/DL HDL CHOLESTEROL (test code = 2220) 49 MG/DL CALC LDL CHOL (test code = 2237) 121 MG/DL RISK RATIO LDL/HDL (test code = 2.47 RATIO 2238) LIPID [id number] 00:00:00 Test Item Value Reference Range Interpretation Comments CHOLESTEROL (test code = 2210) 201 MG/DL TRIGLYCERIDES (test code = 2232) 154 MG/DL HDL CHOLESTEROL (test code = 2220) 49 MG/DL CALC LDL CHOL (test code = 2237) 121 MG/DL RISK RATIO LDL/HDL (test code = 2.47 RATIO 2238) PSA, [id number] 00:00:00 Test Item Value Reference Range Interpretation Comments PSA, TOTAL (test code = 2606) 1.27 NG/ML PSA, [id number] 00:00:00 Test Item Value Reference Range Interpretation Comments PSA, TOTAL (test code = 2606) 1.27 NG/ML PSA, [id number] 00:00:00 Test Item Value Reference Range Interpretation Comments PSA, TOTAL (test code = 2606) 1.27 NG/ML [id number] 06:32:00 Test Item Value Reference Range Interpretation Comments MAGNESIUM (BEAKER) (test code = 1.6 mg/dL 1.6-2.6 627) BASIC METABOLIC [id number] 06:32:00 Test Item Value Reference Range Interpretation [...] 0-0 (BEAKER) (test code = 413) TROPONIN [id number] 23:05:00 Test Item Value Reference Range Interpretation [...] failure, acidosis, acute neurological disease, and persistent tachyarrhythmia.[id number] 05:14:00 Test Item Value Reference Range Interpretation Comments MAGNESIUM (BEAKER) (test code = 1.7 mg/dL 1.6-2.6 627) BASIC METABOLIC [id number] 05:14:00 Test Item Value Reference Range Interpretation [...] WBC 0-0 (BEAKER) (test code = 413) [id number] 09:35:00 Test Item Value Reference Range Interpretation Comments ACTIVATED CLOTTING TIME 279 sec TEST ED AT [place] [address] (BEAKER) (test code = JEB [facility]ravo [facility] 441) [id number] 09:35:00 Test Item Value Reference Range Interpretation Comments ACTIVATED CLOTTING TIME 246 sec TEST ED AT [place] [address] [facility] (test code = JEB Bravo [place] [address]) [id number] 08:47:00 Test Item Value Reference Range Interpretation Comments ACTIVATED CLOTTING TIME 114 sec TEST ED AT [place] [address] ([facility] (test code = JEB Bravo [place] [address]) [id number] 06:45:00 Test Item Value Reference Range Interpretation Comments MAGNESIUM (BEAKER) (test code = 1.9 mg/dL 1.6-2.6 627) BASIC METABOLIC [id number] 06:45:00 Test Item Value Reference Range Interpretation [...] 0-0 (BEAKER) (test code = 413) HEMOGLOBIN [id number] 23:29:00 Test Item Value Reference Range Interpretation Comments HEMOGLOBIN A1C (BEAKER) (test code = 5.3 % 4.3-6.1 368) [id number] 15:58:00 Test Item Value Reference Range Interpretation Comments ACTIVATED CLOTTING TIME 125 sec TEST ED AT [facility] 6720 (BEAKER) (test code = JEB [place] 441) [id number] T4, [id number] 14:56:00 Test Item Value Reference Range Interpretation Comments FREE T4 (BEAKER) (test code = 655) 0.94 ng/dL 0.70-1.48 [id number] 14:50:00 Test Item Value Reference Range Interpretation Comments ACTIVATED CLOTTING TIME 136 sec TEST ED AT [place] [address] ([facility]) (test code = JEB Bravo [facility] 441) [id number] 14:25:00 Test Item Value Reference Range Interpretation Comments ACTIVATED CLOTTING TIME 164 sec TEST ED AT [place] [address] ([facility]) (test code = JEB [facility]ravo [facility] 441) [id number] TSH/FREE T4 IF [id number] 14:25:00 Test Item Value Reference Range Interpretation Comments THYROID STIMULATING HORMONE 5.53 uIU/mL 0.35-4.94 H ([facility]) (test code = 772) TROPONIN [id number] 14:09:00 Test Item Value Reference Range Interpretation Comments TROPONIN I (AKER) (test code = 32.04 ng/mL 0.00-0.03 HH [...] = 2801) CREATINE KINASE (CK), TOTAL AND [id number] 14:06:00 Test Item Value Reference Range Interpretation [...] 25 pg/mL 0-100 (test code = 700) [id number] 13:59:00 Test Item Value Reference Range Interpretation Comments PHOSPHORUS (BEAKER) (test code = 3.4 mg/dL 2.3-4.7 604) [id number] 13:59:00 Test Item Value Reference Range Interpretation Comments MAGNESIUM (BEAKER) (test code = 1.9 mg/dL 1.6-2.6 627) COMPREHENSIVE METABOLIC [id number] 13:59:00 Test Item Value Reference Range Interpretation [...] NOT APPLICABLE FOR DIALYSIS PATIEN TS. LIPID [id number] 13:59:00 Test Item Value Reference Range Interpretation Comments TRIGLYCERIDES (BEAKER) (test code = 29 mg/dL 540) CHOLESTEROL (BioSTL) (test code = 148 mg/dL 631) HDL CHOLESTEROL (BioST[employer]) (test code 86 mg/dL = 976) LDL CHOLESTEROL CALCULATED (BioSTL) 56 mg/dL (test code = 633) Triglyceride Reference Range: Low Risk <150 Borderline 150-199 High Risk 200- 499 Very High Risk >=500Cholesterol Reference Range: Low Risk <200 Borderline 200-239 High Risk >240HDL Cholesterol Reference Range: Low Risk >=60 High Risk <40LDL Cholesterol Reference Range: Optimal <100 Near Optimal 100-129 Borderline 130-159 High 160-189 Very High >=190
[2022-06-12] MEDS ORDERED: THIAMINE 200 MG/2 ML INJ ONE (20:28)
[2022-06-12] MEDS ORDERED: NA CHLORIDE 0.9% 1,000 ML ONE (20:28)
[2022-06-12 20:39] LABS: Urine Blood Negative (Negative); Urine Glucose Negative (Negative); Urine Protein Negative (Negative); Urine Specific Gravity <=1.005 (1.005-1.030)
[2022-06-12 20:44] LABS: Albumin 3.9 g/dL (3.4-5.0); Bilirubin Direct 0.1 mg/dL (0-0.2); Bilirubin Total 0.6 mg/dL (0.2-1.0); Potassium 3.5 mmol/L (3.5-5.1); Protein, Total 7.5 g/dL (6.4-8.2)
[2022-06-12 20:54] LABS: Absolute Lymphocytes (CBC) 1.4 K/uL (0.7-4.9); Hematocrit 37.2 % (39.6-49.0); Lymphocytes % 44.1 % (15.3-44.8); MCV 90.7 fL (80-100); MPV 7.3 fL (7.6-11.3)
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
[2022-06-12] MEDS ORDERED: MAGNESIUM SULFATE 1 gm IVPB 1 GM/100 ML BAG IV ONE (22:09)
[2022-06-12] MEDS ORDERED: TETANUS & DIPHTHERIA TOX,ADULT 0.5 ML VIAL ONE (22:10)
[2022-06-13 02:19] VITALS: BP 107/76; TEMP 97.6; O2SAT 94
== END 2022-06-12 23:12 | disposition home or self-care (01) ==
LOC: ER 19:40
DX: F10.229 Alcohol dependence with intoxication, unspecified (principal); S01.01XA Laceration without foreign body of scalp, initial encounter; S09.90XA Unspecified injury of head, initial encounter; R91.1 Solitary pulmonary nodule; W18.30XA Fall on same level, unspecified, initial encounter; Z91.81 History of falling; Z23 Encounter for immunization; I10 Essential (primary) hypertension; F17.210 Nicotine dependence, cigarettes, uncomplicated
CPT/HCPCS: 96365; 96367; 85025; 80048; 36415; 80320; 86900; 86850; 86901; 80076; 81003; 83690; 70450; 72125; 71260; 74177; 90471; 90714; 99284; 96366; Q9967; J3411; J3475; J7030

== ENCOUNTER 2022-10-16 18:10 | Emergency (ER) | payer OTHER ==
--- OUTSIDE RECORDS SUMMARY | 2022-10-16 18:16 | XMS REPORT | Continuity of Care Document ---
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 2.8 G/DL 2240) CALC A/G RATIO (test code = 1.8 RATIO 2234) BILIRUBIN, TOTAL (test code = 0.9 MG/DL 2206) ALKALINE PHOSPHATASE (test 68 U/L code = 2204) AST (test code = 2218) 45 U/L ALT (test code = 2219) 24 U/L COMPREHENSIVE METABOLIC [id number] 00:00:00 Test Item Value Reference Range Interpretation Comments GLUCOSE (test code = 2217) 85 MG/DL BUN (test code = 2208) 7 MG/DL CREATININE (test code = 2214) 1.00 MG/DL eGFR AMER. (test code 98 ML/MIN/1.73 = 30313) eGFR NON- AMER. (test 84 ML/MIN/1.73 code = 09133) CALC BUN/CREAT (test code = 7 RATIO 2235) SODIUM (test code = 2231) 140 MEQ/L POTASSIUM (test code = 2228) 4.2 MEQ/L CHLORIDE (test code = 2215) 95 MEQ/L CARBON DIOXIDE (test code = 29 MEQ/L 2206) CALCIUM (test code = 2209) 9.9 MG/DL PROTEIN, TOTAL (test code = 7.8 G/DL 2228) ALBUMIN (test code = 2201) 5.0 G/DL CALC GLOBULIN (test code = 2.8 G/DL 2239) CALC A/G RATIO (test code = 1.8 RATIO 2233) BILIRUBIN, TOTAL (test code = 0.9 MG/DL 2206) ALKALINE PHOSPHATASE (test 68 U/L code = 2204) AST (test code = 2218) 45 U/L ALT (test code = 2219) 24 U/L [id number] 00:00:00 Test Item Value Reference Range Interpretation Comments TSH, THIRD GENERATION (test 36.610 UIU/ML code = 2821) [id number] 00:00:00 Test Item Value Reference Range Interpretation Comments TSH, THIRD GENERATION (test 36.610 UIU/ML code = 2821) [id number] 00:00:00 Test Item Value Reference Range Interpretation Comments TSH, THIRD GENERATION (test 36.610 UIU/ML code = 2821) [id number] 00:00:00 Test Item Value Reference Range Interpretation Comments TSH, THIRD GENERATION (test code 0.998 UIU/ML = 2821) [id number] 00:00:00 Test Item Value Reference Range Interpretation Comments TSH, THIRD GENERATION (test code 0.998 UIU/ML = 2821) [id number] 00:00:00 Test Item Value Reference Range Interpretation Comments TSH, THIRD GENERATION (test code 0.998 UIU/ML = 2821) CBC W/AUTO [id number] 00:00:00 Test Item Value Reference Range Interpretation [...] code = 1015) 219 K/UL CBC W/AUTO [id number] 00:00:00 Test Item Value Reference Range Interpretation [...] code = 1015) 219 K/UL COMPREHENSIVE METABOLIC [id number] 00:00:00 Test Item Value Reference Range Interpretation Comments GLUCOSE (test code = 2217) 83 MG/DL BUN (test code = 2208) 12 MG/DL CREATININE (test code = 2214) 1.53 MG/DL eGFR AMER. (test code 59 ML/MIN/1.73 = 04423) eGFR NON- AMER. (test 51 ML/MIN/1.73 code = 68589) CALC BUN/CREAT (test code = 8 RATIO [...] CALC GLOBULIN (test code = 2.8 G/DL 2239) CALC A/G RATIO (test code = 1.7 RATIO 2234) BILIRUBIN, TOTAL (test code = 0.8 MG/DL 2206) ALKALINE PHOSPHATASE (test 65 U/L code = 2204) AST (test code = 2218) 29 U/L ALT (test code = 2219) 16 U/L COMPREHENSIVE METABOLIC [id number] 00:00:00 Test Item Value Reference Range Interpretation Comments GLUCOSE (test code = 2217) 83 MG/DL BUN (test code = 2208) 12 MG/DL CREATININE (test code = 2214) 1.53 MG/DL eGFR AMER. (test code 59 ML/MIN/1.73 = 50581) eGFR NON- AMER. (test 51 ML/MIN/1.73 code = 77974) CALC BUN/CREAT (test code = 8 RATIO 2235) SODIUM (test code = 2231) 139 MEQ/L POTASSIUM (test code = 2228) 4.6 MEQ/L CHLORIDE (test code = 2215) 96 MEQ/L CARBON DIOXIDE (test code = 32 MEQ/L 2205) CALCIUM (test code = 2209) 9.7 MG/DL PROTEIN, TOTAL (test code = 7.6 G/DL 2228) ALBUMIN (test code = 2201) 4.8 G/DL CALC GLOBULIN (test code = 2.8 G/DL 224) CALC A/G RATIO (test code = 1.7 RATIO 2233) BILIRUBIN, TOTAL (test code = 0.8 MG/DL 2206) ALKALINE PHOSPHATASE (test 65 U/L code = 2204) AST (test code = 2218) 29 U/L ALT (test code = 2219) 16 U/L [id number] 00:00:00 Test Item Value Reference Range Interpretation Comments TSH (test code = 2821) >100.000 UIU/ML [id number] 00:00:00 Test Item Value Reference Range Interpretation Comments TSH (test code = 2821) >100.000 UIU/ML [id number] 00:00:00 Test Item Value Reference Range Interpretation Comments TSH (test code = 2821) >100.000 UIU/ML LIPID [id number] 00:00:00 Test Item Value Reference Range Interpretation Comments CHOLESTEROL (test code = 2210) 201 MG/DL TRIGLYCERIDES (test code = 2232) 154 MG/DL HDL CHOLESTEROL (test code = 2220) 49 MG/DL CALC LDL CHOL (test code = 2237) 121 MG/DL RISK RATIO LDL/HDL (test code = 2.47 RATIO 2238) LIPID [id number] 00:00:00 Test Item Value Reference Range Interpretation Comments CHOLESTEROL (test code = 2210) 201 MG/DL TRIGLYCERIDES (test code = 2232) 154 MG/DL HDL CHOLESTEROL (test code = 2220) 49 MG/DL CALC LDL CHOL (test code = 2237) 121 MG/DL RISK RATIO LDL/HDL (test code = 2.47 RATIO 2238) PSA, [id number] 00:00:00 Test Item Value Reference Range Interpretation Comments PSA, TOTAL (test code = 2606) 1.27 NG/ML PSA, [id number] 00:00:00 Test Item Value Reference Range Interpretation Comments PSA, TOTAL (test code = 2606) 1.27 NG/ML PSA, [id number] 00:00:00 Test Item Value Reference Range Interpretation Comments PSA, TOTAL (test code = 2606) 1.27 NG/ML CBC W/AUTO [id number] 00:00:00 Test Item Value Reference Range Interpretation [...] COUNT (test code = 1015) 219 K/UL [id number] 06:32:00 Test Item Value Reference Range Interpretation Comments MAGNESIUM (BEAKER) (test code = 1.6 mg/dL 1.6-2.6 627) BASIC METABOLIC [id number] 06:32:00 Test Item Value Reference Range Interpretation [...] 0-0 (BEAKER) (test code = 413) TROPONIN [id number] 23:05:00 Test Item Value Reference Range Interpretation [...] failure, acidosis, acute neurological disease, and persistent tachyarrhythmia.[id number] 05:14:00 Test Item Value Reference Range Interpretation Comments MAGNESIUM (BEAKER) (test code = 1.7 mg/dL 1.6-2.6 627) BASIC METABOLIC [id number] 05:14:00 Test Item Value Reference Range Interpretation [...] WBC 0-0 (BEAKER) (test code = 413) [id number] 09:35:00 Test Item Value Reference Range Interpretation Comments ACTIVATED CLOTTING TIME 279 sec TEST ED AT [place] [address] ([facility]) (test code = [place] [address]) [id number] 09:35:00 Test Item Value Reference Range Interpretation Comments ACTIVATED CLOTTING TIME 246 sec TEST ED AT [place] [address] ([facility]) (test code = [place] [address]) [id number] 08:47:00 Test Item Value Reference Range Interpretation Comments ACTIVATED CLOTTING TIME 114 sec TEST ED AT [place] [address] ([facility]) (test code = [place] [address]) [id number] 06:45:00 Test Item Value Reference Range Interpretation Comments MAGNESIUM (BEAKER) (test code = 1.9 mg/dL 1.6-2.6 627) BASIC METABOLIC [id number] 06:45:00 Test Item Value Reference Range Interpretation [...] 0-0 (BEAKER) (test code = 413) HEMOGLOBIN [id number] 23:29:00 Test Item Value Reference Range Interpretation Comments HEMOGLOBIN A1C ([facility]) (test code = 5.3 % 4.3-6.1 368) [id number] 15:58:00 Test Item Value Reference Range Interpretation Comments ACTIVATED CLOTTING TIME 125 sec TEST ED AT [place] [address] ([facility]) (test code = [place] [address]) [address] T4, [id number] 14:56:00 Test Item Value Reference Range Interpretation Comments FREE T4 ([facility]) (test code = 655) 0.94 ng/dL 0.70-1.48 [id number] 14:50:00 Test Item Value Reference Range Interpretation Comments ACTIVATED CLOTTING TIME 136 sec TEST ED AT [place] [address] ([facility]) (test code = [place] [address]) [id number] 14:25:00 Test Item Value Reference Range Interpretation Comments ACTIVATED CLOTTING TIME 164 sec TEST ED AT [place] [address] ([facility]) (test code = [place] [address]) [address] TSH/FREE T4 IF [id number] 14:25:00 Test Item Value Reference Range Interpretation Comments THYROID STIMULATING HORMONE 5.53 uIU/mL 0.35-4.94 H ([facility]) (test code = 772) TROPONIN [id number] 14:09:00 Test Item Value Reference Range Interpretation Comments TROPONIN I ([facility]) (test code = 32.04 ng/mL 0.00-0.03 397) Troponin I (TnI) levels must be [...] Range Interpretation Comments WHITE BLOOD CELL COUNT ([facility]) 7.5 K/ L 3.5-10.5 (test code = 775) RED BLOOD CELL COUNT ([facility]) 4.27 M/ L 4.63-6.08 L (test code [...] = 2801) CREATINE KINASE (CK), TOTAL AND [id number] 14:06:00 Test Item Value Reference Range Interpretation [...] 25 pg/mL 0-100 (test code = 700) [id number] 13:59:00 Test Item Value Reference Range Interpretation Comments PHOSPHORUS (BEAKER) (test code = 3.4 mg/dL 2.3-4.7 604) [id number] 13:59:00 Test Item Value Reference Range Interpretation Comments MAGNESIUM (BEAKER) (test code = 1.9 mg/dL 1.6-2.6 627) COMPREHENSIVE METABOLIC [id number] 13:59:00 Test Item Value Reference Range Interpretation [...] 8.4-10.2 (test code = 697) AST (SGOT) ([facility]) 55 U/L 5-34 H (test code = 353) ALT (SGPT) ([facility]) 18 U/L 6-55 (test code = 347) EGFR (BEAKER) (test 104 ESTIMATE D GFR IS code = 1092) mL/min/1.73 sq NOT ACCURA TE m CREATININE CLEARANCE IN PREDICTING GLOMERULAR FILTRATION RATE . ESTIMATED GFR I S NOT APPLICABLE FOR DIALYSIS PATIEN TS. LIPID [id number] 13:59:00 Test Item Value Reference Range Interpretation Comments TRIGLYCERIDES ([facility]) (test code = 29 mg/dL 540) CHOLESTEROL ([employer]) (test code = 148 mg/dL 631) HDL CHOLESTEROL ([employer]) (test code 86 mg/dL = 976) LDL CHOLESTEROL CALCULATED ([employer]) 56 mg/dL (test code = 633) Triglyceride Reference Range: Low Risk <150 Borderline 150-199 High Risk 200- 499 Very High Risk >=500Cholesterol Reference Range: Low Risk <200 Borderline 200-239 High Risk >240HDL Cholesterol Reference Range: Low Risk >=60 High Risk <40LDL Cholesterol Reference Range: Optimal <100 Near Optimal 100-129 Borderline 130-159 High 160-189 Very High >=190
--- NOTE | 2022-10-16 19:46 | RAD REPORT ---
EXAM DESCRIPTION: RAD - Ankle Left 3 View - 10/16/2022 7:02 pm CLINICAL HISTORY: PAIN, twisting injury after fall COMPARISON: No comparisons FINDINGS: No fracture, dislocation or periosteal reaction. No joint effusion seen. Two bone screws a re in place from prior medial malleolus repair. Tip of the fibula shows remodeling changes probably f rom old fracture. On the lateral view there are calcifications plantar surface of the midfoot possibl y from old trauma as well. No soft tissue abnormality. IMPRESSION: Negative left ankle for fracture or other acute finding.
--- NOTE | 2022-10-16 19:55 | RAD REPORT ---
EXAM DESCRIPTION: CT - CTHCSPWOC - 10/16/2022 7:23 pm CLINICAL HISTORY: head injury, loc COMPARISON: Head C Spine Mpr Wo Con dated 08/23/2018 TECHNIQUE: Axial 5 mm thick images of the head were obtained. Axial 2 mm thick images of the cervic al spine were obtained with sagittal and coronal reconstruction images generated and reviewed. All CT scans are performed using dose optimization technique as appropriate and may include automated exposure control or mA/KV adjustment according to patient size. FINDINGS: No intracranial hemorrhage, mass, edema or acute intracranial finding. No suspicion for ac platinum infarction. No extra-axial fluid collections. Mastoid air cells are clear. Patchy mucosal thicken ing in the paranasal sinuses. No air-fluid level seen. Facial bones, orbits and sinuses are fully det fabiano in separate report. Physiologic basal ganglia calcifications are present. Cervical bodies are normal in height. No subluxation abnormality. No fracture or acute finding identi fiable. C4-5, C5-6 and C6-7 disc space narrowing present. Narrowed disc levels have associated promin ent endplate spurs. Facet joint alignment is normal. Patient has normal variant unfused anterior arch C1. No fracture or acute bony abnormality. 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 The glenoid of the TM joint is very shallow with limite d bony volume to the articular eminence at the anterior margin of the joint. There is no dislocation of the condyle head. Central canal detail is inherently limited. No paraspinal mass or hematoma. IMPRESSION: No hemorrhage, edema or acute intracranial finding identified. Orbits, facial bones and sinuses are separately detailed. Negative CT cervical spine examination for acute or significant finding.
--- NOTE | 2022-10-16 19:59 | RAD REPORT ---
EXAM DESCRIPTION: CT - Facial Bones W/ Mpr - 10/16/2022 7:23 pm CLINICAL HISTORY: Fall, facial trauma COMPARISON: None. TECHNIQUE: Axial 2 millimeter thick images of the facial bones were obtained with sagittal and coron al reconstruction imaging. All CT scans are performed using dose optimization technique as appropriate and may include automated exposure control or mA/KV adjustment according to patient size. FINDINGS: No acute facial bone fractures identified. Patchy mucosal thickening seen in the paranasal sinuses without an air-fluid level seen. Old medial right orbital wall fracture is seen. No skullbas e fracture. Mastoid air cells and middle ears are clear. Chronic deformity changes to the right tempo romandibular joint as detailed in the separate CT head report. Right frontal and periorbital soft tissue injury changes are seen. No foreign body. The globe and orb ital contents are normal. Spur artifact is present from dental hardware in place. This does limit huber ewhat the assessment of the maxilla. An acute bone finding is not suspected. IMPRESSION: No acute facial bone fracture. Nonacute findings are detailed in the body of the report.
--- NOTE | 2022-10-16 20:17 | ER ---
Nurse's Notes [facility] Name: Jewel Cespedes Age: 56 yrs Sex: Male : 1965 Arrival Date: 10/16/2022 Time: 18:12 Bed 15 Private MD: Diagnosis: Fall on same level from slipping, tripping and stumbling without subsequent striking against object;Pain in left ankle and joints of left foot;Contusion of right eyelid and periocular area, initial encounter;Laceration without foreign body of right eyelid and periocular area, initial encounter Presentation: 10/16 18:13 Chief complaint: EMS states: INTOXICATED FALL AT HOME, R CHEEK HEMATOMA. Coronavirus bp screen: At this time, the client does not indicate any symptoms associated with coronavirus-19. Ebola Screen: No symptoms or risks identified at this time. Initial Sepsis Screen: Does the patient meet any 2 criteria? No. Patient's initial sepsis screen is negative. Does the patient have a suspected source of infection? No. Patient's initial sepsis screen is negative. Risk Assessment: Do you want to hurt yourself or someone else? Patient reports no desire to harm self or others. Onset of symptoms is unknown. 18:13 Method Of Arrival: EMS: [facility] bp 18:13 Acuity: KAREN 3 bp Triage Assessment: 18:14 General: Appears unkempt, Behavior is cooperative, drowsy, Smells of alcohol. Pain: bp Complains of pain in face. EENT: No deficits noted. Neuro: Level of Consciousness is awake, obeys commands, Oriented to Appropriate for age. Cardiovascular: Rhythm is sinus rhythm. Respiratory: No deficits noted. GI: No signs and/or symptoms were reported involving the gastrointestinal system. : No signs and/or symptoms were reported regarding the genitourinary system. Derm: No deficits noted. Musculoskeletal: No deficits noted. Injury Description: Bruise sustained to face. Historical: - Allergies: 18:14 NKA; bp - Home Meds: 18:14 Aspirin EC Oral [Active]; Hydrochlorothiazide Oral [Active]; levothyroxine oral bp [Active]; Metoprolol Tartrate Oral [Active]; Plavix Oral [Active]; Trazodone Oral [Active]; Xanax Oral [Active]; - PMHx: 18:14 Alcoholism; Anxiety; Asthma; Hypertension; Hypothyroidism; Myocardial infarction; bp Schizophrenia; - Immunization history:: Adult Immunizations unknown. - Social history:: Smoking status: unknown. Screenin:55 [facility] ED Fall Risk Assessment (Adult) History of falling in the last 3 months, pf1 including since admission Yes- single mechanical fall (1 pt) Confusion or Disorientation No (0 pts) Intoxicated or Sedated Yes (3 pts) Impaired Gait Yes (1 pt) Mobility Assist Device Used No (0 pt) Altered Elimination No (0 pt) Score/Fall Risk Level 3 or more points = High Risk Oriented to surroundings, Maintained a safe environment, Educated pt \T\ family on fall prevention, incl call for assistance when getting out of bed, Assessed \T\ reinforced patient's understanding of fall precautions, Provided non-skid footwear, Hourly rounding (assess needs \T\ fall precautionary measures) done, Used ambulatory aids as needed (educated on \T\ assisted with), Used gait belt as appropriate Implemented a Fall Risk Plan of Care, Apply high fall risk patient identification: yellow non skid footwear/ fall signage, Placed fall mat w/ non beveled edge next to bed, Activated bed/chair alarm, Offered frequent toileting (1:1 observation), Remained with patient while ambulating, Utilized family, sitter, or virtual mill platform supervisor as indicated. 20:56 Abuse screen: Denies threats or abuse. Nutritional screening: No deficits noted. pf1 Tuberculosis screening: No symptoms or risk factors identified. Assessment: 19:20 General: Appears in no apparent distress. comfortable, Behavior is calm, cooperative, pf1 appropriate for age, quiet, Smells of alcohol. 19:20 Pain: Denies pain. Neuro: Level of Consciousness is awake, alert, obeys commands, pf1 Oriented to person, place, time, situation. Cardiovascular: No deficits noted. Capillary refill < 3 seconds. Respiratory: No deficits noted. Airway is patent Trachea midline Respiratory effort is even, unlabored, Respiratory pattern is regular, symmetrical. GI: No deficits noted. No signs and/or symptoms were reported involving the gastrointestinal system. : No deficits noted. No signs and/or symptoms were reported regarding the genitourinary system. EENT: No deficits noted. Derm: Wound noted 2 abrasions noted to left lower extremity and swelling to bottom lip with contusion to face. Vital Signs: 18:13 BP 140 / 90; Pulse 75; Resp 16; Temp 98; Pulse Ox 97% ; bp 18:17 BP 121 / 78; Pulse 79; Resp 18; Temp 97.0; Pulse Ox 98% on R/A; tm3 19:30 BP 116 / 82; Pulse 61; Resp 18; Temp 98.9; Pulse Ox 95% on R/A; Pain 0/10; pf1 20:30 BP 118 / 85; Pulse 63; Resp 16; Temp 98.5; Pulse Ox 96% on R/A; Pain 0/10; pf1 ED Course: 18:12 Patient arrived in ED. bp 18:14 Triage completed. bp 18:16 Arm band placed on. bp 18:17 [facility] kb 18:17 Anoop Ferguson DO is Attending Physician. kb 18:36 Sebastián Olivo, RN is Primary Nurse. bp 18:57 Ankle Left 3 View XRAY Sent. bp 19:04 Ankle Left 3 View XRAY In Process Unspecified. EDMS 19:25 CT Head C Spine In Process Unspecified. EDMS 19:25 CT Facial Bones W/O Con In Process Unspecified. EDMS 19:30 Bed in low position. Call light in reach. Side rails up X2. pf1 20:56 No provider procedures requiring assistance completed. Patient did not have IV access pf1 during this emergency room visit. Administered Medications: No medications were administered Medication: 20:57 VIS not applicable for this client. pf1 Outcome: 20:16 Discharge ordered by MD. kb 20:56 Discharged to home via wheelchair, with family. pf1 20:56 Condition: improved 20:56 Discharge instructions given to patient, family, Instructed on discharge instructions, follow up and referral plans. Demonstrated understanding of instructions, follow-up care. 20:57 Patient left the ED. pf1 Signatures: Dispatcher [employer] EDMS Teresa Mendoza FNP-C FNP-Robby Hunter tm3 Sebastián Olivo, RN RN Shirley alanis RN RN pf1
--- NOTE | 2022-10-16 20:17 | EDPHYS ---
Physician Documentation [facility] Name: Jewel Cespedes Age: 56 yrs Sex: Male : 1965 Arrival Date: 10/16/2022 Time: 18:12 Bed 15 Private MD: ED Physician Anoop Ferguson HPI: 10/16 20:58 This 56 yrs old Male presents to ER via EMS with complaints of Fall Injury. kb 20:58 Details of fall: The patient fell from an upright position, while walking. Onset: The kb symptoms/episode began/occurred 5 hour(s) ago. Associated injuries: The patient sustained injury to the head, contusion, laceration, swelling, anterior aspect of left ankle, pain related to old injury that he believes he aggravated during fall. Severity of symptoms: At their worst the symptoms were mild, in the emergency department the symptoms are unchanged. The patient has not experienced similar symptoms in the past. The patient has not recently seen a physician. Pt reports he has been drinking and it caused him to fall. c/o pain to left ankle and right side of face. . Historical: - Allergies: 18:14 NKA; bp - Home Meds: 18:14 Aspirin EC Oral [Active]; Hydrochlorothiazide Oral [Active]; levothyroxine oral bp [Active]; Metoprolol Tartrate Oral [Active]; Plavix Oral [Active]; Trazodone Oral [Active]; Xanax Oral [Active]; - PMHx: 18:14 Alcoholism; Anxiety; Asthma; Hypertension; Hypothyroidism; Myocardial infarction; bp Schizophrenia; - Immunization history:: Adult Immunizations unknown. - Social history:: Smoking status: unknown. ROS: 20:56 Constitutional: Negative for fever, chills, and weight loss. kb 20:56 MS/extremity: Positive for pain, of the anterior aspect of left ankle. 20:56 Skin: Positive for ecchymosis, laceration(s), swelling, of the right eye. 20:56 All other systems are negative. Exam: 20:56 Constitutional: This is a well developed, well nourished patient who is awake, alert, kb and in no acute distress. ENT: Moist Mucous membranes Cardiovascular: Regular rate and rhythm with a normal S1 and S2. No gallops, murmurs, or rubs. No pulse deficits. Respiratory: Respirations even and unlabored. No increased work of breathing. Talking in full sentences Abdomen/GI: Soft, non-tender. No distention MS/ Extremity: Pulses equal, no cyanosis. Neurovascular intact. Full, normal range of motion. Neuro: Awake and alert, GCS 15, oriented to person, place, time, and situation. Moves all extremities. Normal gait. 20:56 Head/face: Noted is no obvious of injury or deformity except ecchymosis, that is mild, of the right eye, swelling, that is mild, of the right eye. 20:56 Skin: injury, laceration(s), the wound is approximately 0.5 cm(s), of the right supraorbital ridge. Vital Signs: 18:13 BP 140 / 90; Pulse 75; Resp 16; Temp 98; Pulse Ox 97% ; bp 18:17 BP 121 / 78; Pulse 79; Resp 18; Temp 97.0; Pulse Ox 98% on R/A; tm3 19:30 BP 116 / 82; Pulse 61; Resp 18; Temp 98.9; Pulse Ox 95% on R/A; Pain 0/10; pf1 20:30 BP 118 / 85; Pulse 63; Resp 16; Temp 98.5; Pulse Ox 96% on R/A; Pain 0/10; pf1 MDM: 18:17 Patient medically screened. kb 20:54 Data reviewed: vital signs, nurses notes. Data interpreted: Pulse oximetry: on room air kb is 98 %. Interpretation: normal. Counseling: I had a detailed discussion with the patient and/or guardian regarding: the historical points, exam findings, and any diagnostic results supporting the discharge/admit diagnosis, radiology results, the need for outpatient follow up, a family practitioner, to return to the emergency department if symptoms worsen or persist or if there are any questions or concerns that arise at home. ED course: Pt awake, alert and oriented x4. Discussed radiology results with pt. Laceration above right eye is well approximated and requires no repair. Pt will call responsible, sober adult to pick him up. Pt staying in room until his ride comes to get him. . 20:59 Differential diagnosis: closed head injury, contusion, fracture, laceration, sprain. kb 10/16 18:24 Order name: Ankle Left 3 View XRAY; Complete Time: 19:50 kb 10/16 18:24 Order name: CT Head C Spine; Complete Time: 19:58 kb 10/16 18:24 Order name: CT Facial Bones W/O Con; Complete Time: 20:05 kb Administered Medications: No medications were administered Disposition Summary: 10/16/22 20:16 Discharge Ordered Location: Home kb Condition: Stable kb Diagnosis - Fall on same level from slipping, tripping and stumbling without subsequent kb striking against object - Pain in left ankle and joints of left foot kb - Contusion of right eyelid and periocular area, initial encounter kb - Laceration without foreign body of right eyelid and periocular area, initial kb encounter Followup: kb - With: Emergency Department - When: As needed - Reason: Worsening of condition Followup: kb - With: Private Physician - When: 2 - 3 days - Reason: Recheck today's complaints, Continuance of care, Re-evaluation by your physician Discharge Instructions: - Discharge Summary Sheet kb - Musculoskeletal Pain kb - Facial Laceration, [id number] kb - Head Injury, Adult, [id number] kb Forms: - Medication Reconciliation Form kb - Thank You Letter kb - Antibiotic Education kb - Prescription Opioid Use kb Addendum: 10/18/2022 12:38 Co-signature as Attending Physician, Anoop Ferguson DO I was immediately available on-site m s3 in the Emergency Department for consultation in the care of the patient.. Signatures: Dispatcher [employer] Teresa Roger, GERIATRIC NURSE-C CARMEL-Sebastián Lopez, RN RN Anoop Lomas DO DO ms3
[2022-10-16 22:36] VITALS: BP 118/85; TEMP 98.5; O2SAT 96
== END 2022-10-16 20:57 | disposition home or self-care (01) ==
LOC: ER 18:10
DX: S01.111A Laceration without foreign body of right eyelid and periocular area, initial encounter (principal); M25.572 Pain in left ankle and joints of left foot; W01.0XXA Fall on same level from slipping, tripping and stumbling without subsequent striking against object, initial encounter; F10.20 Alcohol dependence, uncomplicated; I10 Essential (primary) hypertension; F20.9 Schizophrenia, unspecified; I25.2 Old myocardial infarction; Z79.01 Long term (current) use of anticoagulants
CPT/HCPCS: 70450; 70486; 72125; 76377; 99284

== ENCOUNTER 2023-08-16 23:07 | Emergency (ER) | payer OTHER ==
--- OUTSIDE RECORDS SUMMARY | 2023-08-16 23:13 | XMS REPORT | Continuity of Care Document ---
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 PATHOLOGY [facility]. [address] [place] [address] LABORATORY DIRE CTOR: JESSICA ESTRELLA M.D. CLIA NUMBER [id number] [place]. [id number] [A utomated message] The sy stem which generated this result transmitted ref erence range: <=4.00. The ref erence range was not used to int erpret this result as breann l/abnormal. COMPREHENSIVE METABOLIC [id number] 05:26:29 Test Item Value Reference Range Interpretation Comments GLUCOSE (test code = 101 MG/DL 70-99 H 2216) BUN (test code = 10 MG/DL 6-20 2207) CREATININE (test 1.45 MG/DL 0.80-1.40 H code = 2214) eGFR (2020 CKD-EPI) 56 ML/MIN/1.73 >60 L (test code = 10076) CALC BUN/CREAT (test 7 RATIO 6-28 code = 2235) SODIUM (test code = 140 MEQ/L 301-585 1348) POTASSIUM (test code 4.4 MEQ/L 3.5-5.4 = 8) CHLORIDE (test code 96 MEQ/L 95-107 = [...] 2203) AST (test code = 21 U/L -50 2217) ALT (test code = 9 U/L 5-50 2218) LIPID [id number] 05:26:29 Test Item Value Reference Range Interpretation [...] MOREINFORMATION , SEE CLIENT ANNOUNCE MENT AT [email or web address] RISK RATIO LDL/HDL 4.07 RATIO <3.55 H (test code = 2238) CBC W/AUTO DIFF WITH [id number] 04:33:40 Test Item Value Reference Range Interpretation [...] RBCS 0.00 K/UL 0.00-0.11 (test code = 84357) CBC W/AUTO [id number] 00:00:00 Test Item Value Reference Range Interpretation [...] NUCLEATED RBCS (test code = 0.00 K/UL 91929) CBC W/AUTO [id number] 00:00:00 Test Item Value Reference Range Interpretation [...] NUCLEATED RBCS (test code = 0.00 K/UL 17322) CBC W/AUTO [id number] 00:00:00 Test Item Value Reference Range Interpretation [...] NUCLEATED RBCS (test code = 0.00 K/UL 35206) COMPREHENSIVE METABOLIC [id number] 00:00:00 Test Item Value Reference Range Interpretation Comments GLUCOSE (test code = 2217) 101 MG/DL BUN (test code = 2208) 10 MG/DL CREATININE (test code = 2214) 1.45 MG/DL eGFR (2020 CKD-EPI) (test code 56 ML/MIN/1.73 = 43841) CALC BUN/CREAT (test code = 7 RATIO 223) SODIUM (test code = 2231) 140 MEQ/L [...] BILIRUBIN, TOTAL (test code = 0.5 MG/DL 2207) ALKALINE PHOSPHATASE (test 50 U/L code = 2204) AST (test code = 2218) 21 U/L ALT (test code = 2219) 9 U/L COMPREHENSIVE METABOLIC [id number] 00:00:00 Test Item Value Reference Range Interpretation Comments GLUCOSE (test code = 2217) 101 MG/DL BUN (test code = 2208) 10 MG/DL CREATININE (test code = 2214) 1.45 MG/DL eGFR (2020 CKD-EPI) (test code 56 ML/MIN/1.73 = 46188) CALC BUN/CREAT (test code = 7 RATIO [...] (test code = 2219) 9 U/L LIPID [id number] 00:00:00 Test Item Value Reference Range Interpretation Comments CHOLESTEROL (test code = 2210) 257 MG/DL TRIGLYCERIDES (test code = 2232) 113 MG/DL HDL CHOLESTEROL (test code = 2220) 46 MG/DL CALC LDL CHOL (test code = 2237) 187 MG/DL RISK RATIO LDL/HDL (test code = 4.07 RATIO 2238) LIPID [id number] 00:00:00 Test Item Value Reference Range Interpretation Comments CHOLESTEROL (test code = 2210) 257 MG/DL TRIGLYCERIDES (test code = 2232) 113 MG/DL HDL CHOLESTEROL (test code = 2220) 46 MG/DL CALC LDL CHOL (test code = 2237) 187 MG/DL RISK RATIO LDL/HDL (test code = 4.07 RATIO 2238) [id number] 00:00:00 Test Item Value Reference Range Interpretation Comments TSH, THIRD GENERATION (test >100.000 UIU/ML code = 2821) [id number] 00:00:00 Test Item Value Reference Range Interpretation Comments TSH, THIRD GENERATION (test >100.000 UIU/ML code = 2821) [id number] 00:00:00 Test Item Value Reference Range Interpretation Comments TSH, THIRD GENERATION (test >100.000 UIU/ML code = 2821) PSA, [id number] 00:00:00 Test Item Value Reference Range Interpretation Comments PSA, TOTAL (test code = 2606) 2.32 NG/ML PSA, [id number] 00:00:00 Test Item Value Reference Range Interpretation Comments PSA, TOTAL (test code = 2606) 2.32 NG/ML PSA, [id number] 00:00:00 Test Item Value Reference Range Interpretation Comments PSA, TOTAL (test code = 2606) 2.32 NG/ML CBC W/AUTO [id number] 00:00:00 Test Item Value Reference Range Interpretation [...] code = 1015) 171 K/UL CBC W/AUTO [id number] 00:00:00 Test Item Value Reference Range Interpretation [...] code = 1015) 171 K/UL CBC W/AUTO [id number] 00:00:00 Test Item Value Reference Range Interpretation [...] code = 1015) 171 K/UL COMPREHENSIVE METABOLIC [id number] 00:00:00 Test Item Value Reference Range Interpretation Comments GLUCOSE (test code = 2217) 80 MG/DL BUN (test code = 2208) 11 MG/DL CREATININE (test code = 2214) 1.21 MG/DL eGFR AMER. (test code 77 ML/MIN/1.73 = 24381) eGFR NON- AMER. (test 66 ML/MIN/1.73 code = 42366) CALC BUN/CREAT (test code = 9 RATIO [...] code = 2219) 15 U/L COMPREHENSIVE METABOLIC [id number] 00:00:00 Test Item Value Reference Range Interpretation Comments GLUCOSE (test code = 2217) 80 MG/DL BUN (test code = 2208) 11 MG/DL CREATININE (test code = 2214) 1.21 MG/DL eGFR AMER. (test code 77 ML/MIN/1.73 = 17470) eGFR NON- AMER. (test 66 ML/MIN/1.73 code = 34022) CALC BUN/CREAT (test code = 9 RATIO [...] ALT (test code = 2219) 15 U/L [id number] 00:00:00 Test Item Value Reference Range Interpretation Comments TSH, THIRD GENERATION (test >100.000 UIU/ML code = 2821) [id number] 00:00:00 Test Item Value Reference Range Interpretation Comments TSH, THIRD GENERATION (test >100.000 UIU/ML code = 2821) [id number] 00:00:00 Test Item Value Reference Range Interpretation Comments TSH, THIRD GENERATION (test >100.000 UIU/ML code = 2821) PSA, [id number] 00:00:00 Test Item Value Reference Range Interpretation Comments PSA, TOTAL (test code = 2606) 3.70 NG/ML PSA, [id number] 00:00:00 Test Item Value Reference Range Interpretation Comments PSA, TOTAL (test code = 2606) 3.70 NG/ML PSA, [id number] 00:00:00 Test Item Value Reference Range Interpretation Comments PSA, TOTAL (test code = 2606) 3.70 NG/ML LIPID [id number] 00:00:00 Test Item Value Reference Range Interpretation Comments CHOLESTEROL (test code = 2210) 149 MG/DL TRIGLYCERIDES (test code = 2232) 89 MG/DL HDL CHOLESTEROL (test code = 2220) 81 MG/DL CALC LDL CHOL (test code = 2237) 51 MG/DL RISK RATIO LDL/HDL (test code = 0.63 RATIO 2238) LIPID [id number] 00:00:00 Test Item Value Reference Range Interpretation Comments CHOLESTEROL (test code = 2210) 149 MG/DL TRIGLYCERIDES (test code = 2232) 89 MG/DL HDL CHOLESTEROL (test code = 2220) 81 MG/DL CALC LDL CHOL (test code = 2237) 51 MG/DL RISK RATIO LDL/HDL (test code = 0.63 RATIO 2238) COMPREHENSIVE METABOLIC [id number] 00:00:00 Test Item Value Reference Range Interpretation Comments GLUCOSE (test code = 2217) 80 MG/DL BUN (test code = 2208) 19 MG/DL CREATININE (test code = 2214) 1.44 MG/DL eGFR AMER. (test code 62 ML/MIN/1.73 = 86704) eGFR NON- AMER. (test 54 ML/MIN/1.73 code = 29459) CALC BUN/CREAT (test code = 13 RATIO 2235) SODIUM (test code = 2231) 139 MEQ/L POTASSIUM (test code = 2228) 4.3 MEQ/L CHLORIDE (test code = 2215) 99 MEQ/L CARBON DIOXIDE (test code = 29 MEQ/L 6) CALCIUM (test code = 2209) 9.7 MG/DL [...] code = 2219) 13 U/L COMPREHENSIVE METABOLIC [id number] 00:00:00 Test Item Value Reference Range Interpretation Comments GLUCOSE (test code = 2217) 80 MG/DL BUN (test code = 2208) 19 MG/DL CREATININE (test code = 2214) 1.44 MG/DL eGFR AMER. (test code 62 ML/MIN/1.73 = 68889) eGFR NON- AMER. (test 54 ML/MIN/1.73 code = 15277) CALC BUN/CREAT (test code = 13 RATIO [...] code = 2219) 13 U/L CBC W/AUTO [id number] 00:00:00 Test Item Value Reference Range Interpretation [...] code = 1015) 182 K/UL CBC W/AUTO [id number] 00:00:00 Test Item Value Reference Range Interpretation [...] code = 1015) 182 K/UL CBC W/AUTO [id number] 00:00:00 Test Item Value Reference Range Interpretation [...] COUNT (test code = 1015) 182 K/UL [id number] 00:00:00 Test Item Value Reference Range Interpretation Comments TSH, THIRD GENERATION (test 95.200 UIU/ML code = 2821) [id number] 00:00:00 Test Item Value Reference Range Interpretation Comments TSH, THIRD GENERATION (test 95.200 UIU/ML code = 2821) [id number] 00:00:00 Test Item Value Reference Range Interpretation Comments TSH, THIRD GENERATION (test 95.200 UIU/ML code = 2821) LIPID [id number] 00:00:00 Test Item Value Reference Range Interpretation Comments CHOLESTEROL (test code = 2210) 164 MG/DL TRIGLYCERIDES (test code = 2232) 66 MG/DL HDL CHOLESTEROL (test code = 2220) 131 MG/DL CALC LDL CHOL (test code = 2237) 20 MG/DL RISK RATIO LDL/HDL (test code = 0.15 RATIO 2238) LIPID [id number] 00:00:00 Test Item Value Reference Range Interpretation Comments CHOLESTEROL (test code = 2210) 164 MG/DL TRIGLYCERIDES (test code = 2232) 66 MG/DL HDL CHOLESTEROL (test code = 2220) 131 MG/DL CALC LDL CHOL (test code = 2237) 20 MG/DL RISK RATIO LDL/HDL (test code = 0.15 RATIO 2238) COMPREHENSIVE METABOLIC [id number] 00:00:00 Test Item Value Reference Range Interpretation Comments GLUCOSE (test code = 2217) 85 MG/DL BUN (test code = 2208) 7 MG/DL CREATININE (test code = 2214) 1.00 MG/DL eGFR AMER. (test code 98 ML/MIN/1.73 = 15800) eGFR NON- AMER. (test 84 ML/MIN/1.73 code = 59914) CALC BUN/CREAT (test code = 7 RATIO [...] code = 2219) 24 U/L COMPREHENSIVE METABOLIC [id number] 00:00:00 Test Item Value Reference Range Interpretation Comments GLUCOSE (test code = 2217) 85 MG/DL BUN (test code = 2208) 7 MG/DL CREATININE (test code = 2214) 1.00 MG/DL eGFR AMER. (test code 98 ML/MIN/1.73 = 15489) eGFR NON- AMER. (test 84 ML/MIN/1.73 code = 76938) CALC BUN/CREAT (test code = 7 RATIO [...] ALT (test code = 2219) 24 U/L [id number] 00:00:00 Test Item Value Reference Range Interpretation Comments TSH, THIRD GENERATION (test 36.610 UIU/ML code = 2821) [id number] 00:00:00 Test Item Value Reference Range Interpretation Comments TSH, THIRD GENERATION (test 36.610 UIU/ML code = 2821) [id number] 00:00:00 Test Item Value Reference Range Interpretation Comments TSH, THIRD GENERATION (test 36.610 UIU/ML code = 2821) [id number] 00:00:00 Test Item Value Reference Range Interpretation Comments TSH, THIRD GENERATION (test code 0.998 UIU/ML = 2821) [id number] 00:00:00 Test Item Value Reference Range Interpretation Comments TSH, THIRD GENERATION (test code 0.998 UIU/ML = 2821) [id number] 00:00:00 Test Item Value Reference Range Interpretation Comments TSH, THIRD GENERATION (test code 0.998 UIU/ML = 2821) CBC W/AUTO [id number] 00:00:00 Test Item Value Reference Range Interpretation [...] code = 1015) 219 K/UL CBC W/AUTO [id number] 00:00:00 Test Item Value Reference Range Interpretation [...] code = 1015) 219 K/UL CBC W/AUTO [id number] 00:00:00 Test Item Value Reference Range Interpretation [...] code = 1015) 219 K/UL COMPREHENSIVE METABOLIC [id number] 00:00:00 Test Item Value Reference Range Interpretation Comments GLUCOSE (test code = 2217) 83 MG/DL BUN (test code = 2208) 12 MG/DL CREATININE (test code = 2214) 1.53 MG/DL eGFR AMER. (test code 59 ML/MIN/1.73 = 77949) eGFR NON- AMER. (test 51 ML/MIN/1.73 code = 93273) CALC BUN/CREAT (test code = 8 RATIO [...] code = 2219) 16 U/L COMPREHENSIVE METABOLIC [id number] 00:00:00 Test Item Value Reference Range Interpretation Comments GLUCOSE (test code = 2217) 83 MG/DL BUN (test code = 2208) 12 MG/DL CREATININE (test code = 2214) 1.53 MG/DL eGFR AMER. (test code 59 ML/MIN/1.73 = 25025) eGFR NON- AMER. (test 51 ML/MIN/1.73 code = 25555) CALC BUN/CREAT (test code = 8 RATIO 2235) SODIUM (test code = 2231) 139 MEQ/L POTASSIUM (test code = 2228) 4.6 MEQ/L CHLORIDE (test code = 2215) 96 MEQ/L CARBON DIOXIDE (test code = 32 MEQ/L 2205) CALCIUM (test code = 2209) 9.7 MG/DL PROTEIN, TOTAL (test code = 7.6 G/DL 2228) ALBUMIN (test code = 220) 4.8 G/DL CALC GLOBULIN (test code = 2.8 G/DL 2239) CALC A/G RATIO (test code = 1.7 RATIO 2233) BILIRUBIN, TOTAL (test code = 0.8 MG/DL 2206) ALKALINE PHOSPHATASE (test 65 U/L code = 2204) AST (test code = 2218) 29 U/L ALT (test code = 2219) 16 U/L [id number] 00:00:00 Test Item Value Reference Range Interpretation Comments TSH (test code = 2821) >100.000 UIU/ML [id number] 00:00:00 Test Item Value Reference Range Interpretation Comments TSH (test code = 2821) >100.000 UIU/ML [id number] 00:00:00 Test Item Value Reference Range Interpretation Comments TSH (test code = 2821) >100.000 UIU/ML LIPID [id number] 00:00:00 Test Item Value Reference Range Interpretation Comments CHOLESTEROL (test code = 2210) 201 MG/DL TRIGLYCERIDES (test code = 2232) 154 MG/DL HDL CHOLESTEROL (test code = 2220) 49 MG/DL CALC LDL CHOL (test code = 2237) 121 MG/DL RISK RATIO LDL/HDL (test code = 2.47 RATIO 2238) LIPID [id number] 00:00:00 Test Item Value Reference Range Interpretation Comments CHOLESTEROL (test code = 2210) 201 MG/DL TRIGLYCERIDES (test code = 2232) 154 MG/DL HDL CHOLESTEROL (test code = 2220) 49 MG/DL CALC LDL CHOL (test code = 2237) 121 MG/DL RISK RATIO LDL/HDL (test code = 2.47 RATIO 2237) PSA, [id number] 00:00:00 Test Item Value Reference Range Interpretation Comments PSA, TOTAL (test code = 2606) 1.27 NG/ML PSA, [id number] 00:00:00 Test Item Value Reference Range Interpretation Comments PSA, TOTAL (test code = 2606) 1.27 NG/ML PSA, [id number] 00:00:00 Test Item Value Reference Range Interpretation Comments PSA, TOTAL (test code = 2606) 1.27 NG/ML [id number] 06:32:00 Test Item Value Reference Range Interpretation Comments MAGNESIUM (BEAKER) (test code = 1.6 mg/dL 1.6-2.6 627) BASIC METABOLIC [id number] 06:32:00 Test Item Value Reference Range Interpretation [...] 0-0 (BEAKER) (test code = 413) TROPONIN [id number] 23:05:00 Test Item Value Reference Range Interpretation [...] failure, acidosis, acute neurological disease, and persistent tachyarrhythmia.[id number] 05:14:00 Test Item Value Reference Range Interpretation Comments MAGNESIUM (BEAKER) (test code = 1.7 mg/dL 1.6-2.6 627) BASIC METABOLIC [id number] 05:14:00 Test Item Value Reference Range Interpretation [...] WBC 0-0 (BEAKER) (test code = 413) [id number] 09:35:00 Test Item Value Reference Range Interpretation Comments ACTIVATED CLOTTING TIME 279 sec TEST ED AT [place] [address] [facility] (test code = JEB Bravo [facility] 441) [address] [id number] 09:35:00 Test Item Value Reference Range Interpretation Comments ACTIVATED CLOTTING TIME 246 sec TEST ED AT [place] [address] [facility] (test code = JEB Bravo [place] [address]) [address] [id number] 08:47:00 Test Item Value Reference Range Interpretation Comments ACTIVATED CLOTTING TIME 114 sec TEST ED AT [place] [address] ([facility]) (test code = JEB Bravo [place] [address]) [address] [id number] 06:45:00 Test Item Value Reference Range Interpretation Comments MAGNESIUM (BEAKER) (test code = 1.9 mg/dL 1.6-2.6 627) BASIC METABOLIC [id number] 06:45:00 Test Item Value Reference Range Interpretation [...] 753) MEAN CORPUSCULAR HEMOGLOBIN 29.8 pg 25.7-32.2 (AKER) (test code = 751) MEAN CORPUSCULAR HEMOGLOBIN CONC 32.6 GM/DL 32.3-36.5 (AKER) (test code = 752) RED CELL DISTRIBUTION WIDTH 14.0 % 11.6-14.4 (AKER) (test code = 412) PLATELET COUNT ([facility]) (test 128 K/CU MM 150-450 L code = 756) MEAN PLATELET VOLUME ([facility]) 9.5 fL 9.4-12.4 (test code = 754) NUCLEATED RED BLOOD CELLS 0 /100 WBC 0-0 ([facility]) (test code = 413) HEMOGLOBIN [id number] 23:29:00 Test Item Value Reference Range Interpretation Comments HEMOGLOBIN A1C ([facility]) (test code = 5.3 % 4.3-6.1 368) [id number] 15:58:00 Test Item Value Reference Range Interpretation Comments ACTIVATED CLOTTING TIME 125 sec TEST ED AT [place] [address] ([facility]) (test code = [facility] [place] [address]) [address] T4, [id number] 14:56:00 Test Item Value Reference Range Interpretation Comments FREE T4 ([facility]) (test code = 655) 0.94 ng/dL 0.70-1.48 [id number] 14:50:00 Test Item Value Reference Range Interpretation Comments ACTIVATED CLOTTING TIME 136 sec TEST ED AT [place] [address] ([facility]) (test code = [facility] [place] [address]) [address] [id number] 14:25:00 Test Item Value Reference Range Interpretation Comments ACTIVATED CLOTTING TIME 164 sec TEST ED AT [place] [address] ([facility]) (test code = [place] [address]) [address] TSH/FREE T4 IF [id number] 14:25:00 Test Item Value Reference Range Interpretation Comments THYROID STIMULATING HORMONE 5.53 uIU/mL 0.35-4.94 H (BEAKER) (test code = 772) TROPONIN [id number] 14:09:00 Test Item Value Reference Range Interpretation [...] = 2801) CREATINE KINASE (CK), TOTAL AND [id number] 14:06:00 Test Item Value Reference Range Interpretation [...] 25 pg/mL 0-100 (test code = 700) [id number] 13:59:00 Test Item Value Reference Range Interpretation Comments PHOSPHORUS (BEAKER) (test code = 3.4 mg/dL 2.3-4.7 604) [id number] 13:59:00 Test Item Value Reference Range Interpretation Comments MAGNESIUM (BEAKER) (test code = 1.9 mg/dL 1.6-2.6 627) COMPREHENSIVE METABOLIC [id number] 13:59:00 Test Item Value Reference Range Interpretation [...] NOT APPLICABLE FOR DIALYSIS PATIEN TS. LIPID [id number] 13:59:00 Test Item Value Reference Range Interpretation [...]
[2023-08-17] MEDS ORDERED: ACETAMINOPHEN 500 MG TAB ONE (00:10)
[2023-08-17] MEDS ORDERED: IBUPROFEN 400 MG TAB ONE (00:10)
[2023-08-17] MEDS ORDERED: ONDANSETRON 4 MG (ODT) TAB ONE (00:11)
--- NOTE | 2023-08-17 04:18 | EDPHYS ---
Physician Documentation [facility] Name: Jewel Cespedes Age: 57 yrs Sex: Male : 1965 Arrival Date: 08/16/2023 Time: 23:07 Bed 8 Private MD: ED Physician Bhargav Esposito HPI: 08/16 23:41 This 57 yrs old Male presents to ER via Unassigned with complaints of Head sp4 injury . 08/17 00:13 PMH - Home Meds: Aspirin EC Oral; Hydrochlorothiazide Oral; levothyroxine oral; sp4 Metoprolol Tartrate Oral; Plavix Oral; Trazodone Oral; Xanax Oral PMHx: Alcoholism; Anxiety; Asthma; Hypertension; Hypothyroidism; Myocardial infarction; Schizophrenia; . 00:13 Patient is 57-year-old male with history of alcoholism and schizophrenia who presents sp4 with EMS with moderate intoxication complaining of a head injury with facial pain on the left side. Patient was walking on the street and fell into the ditch into the grass. Patient began screaming for help and bystanders have called police and EMS. Patient appears to be moderately intoxicated he says he had a lot of alcohol to drink today. Request medical assessment for facial injury . . Historical: - Allergies: 08/16 23:44 NKA; km8 - Home Meds: 23:44 Aspirin EC Oral [Active]; Hydrochlorothiazide Oral [Active]; levothyroxine oral km8 [Active]; Metoprolol Tartrate Oral [Active]; Plavix Oral [Active]; Trazodone Oral [Active]; Xanax Oral [Active]; - PMHx: 23:44 Alcoholism; Anxiety; Asthma; Hypertension; Hypothyroidism; Myocardial infarction; km8 Schizophrenia; - Immunization history:: Adult Immunizations unknown. - Social history:: Smoking status: Patient reports the use of cigarette tobacco products, smokes one pack cigarettes per day. Patient uses alcohol, on a daily basis. Patient/guardian denies using street drugs. - Family history:: not pertinent. ROS: 08/17 00:13 Constitutional: Negative for fever, chills, and weight loss, positive alcohol sp4 intoxication positive left facial pain and discoloration with left facial contusion and left periorbital contusion All other systems are negative, Exam: 00:13 Constitutional: This is a well developed, well nourished patient who is awake, alert, sp4 and in no acute distress. Patient is thin appearing male moderately intoxicated with left-sided facial contusion left periorbital contusion left periorbital hematoma left facial hematoma. Complaining of left shoulder pain without deformity. Head/Face: Normocephalic, positive left facial hematoma left periorbital hematoma and left facial contusion with discoloration and tenderness Eyes: Pupils equal round and reactive to light, extra-ocular motions intact. Lids and lashes normal. Conjunctiva and sclera are not injected. Cornea within normal limits. Periorbital areas with no swelling, redness, or edema. ENT: Nares patent. No nasal discharge, no septal abnormalities noted. Tympanic membranes are normal and external auditory canals are clear. Oropharynx with no redness, swelling, or masses, exudates, or evidence of obstruction, uvula midline. Mucous membranes moist. Neck: Trachea midline, no thyromegaly or masses palpated, and no cervical lymphadenopathy. Supple, full range of motion without nuchal rigidity, or vertebral point tenderness. Chest/axilla: Normal chest wall appearance and motion. Nontender with no deformity. No lesions are appreciated. Cardiovascular: Regular rate and rhythm with a normal S1 and S2. No gallops, murmurs, or rubs. Normal PMI, no JVD. No pulse deficits. Respiratory: Lungs have equal breath sounds bilaterally, clear to auscultation and percussion. No rales, rhonchi or wheezes noted. No increased work of breathing, no retractions or nasal flaring. Abdomen/GI: Soft, non-tender, with normal bowel sounds. No distension or tympany. No guarding or rebound. No evidence of tenderness throughout. Back: No spinal tenderness. No costovertebral tenderness. Male : Normal genitalia with no discharge or lesions. Skin: Warm, dry with normal turgor. Normal color with no rashes, no lesions, and no evidence of cellulitis. MS/ Extremity: Pulses equal, no cyanosis. Neurovascular intact. Full, normal range of motion. Neuro: Awake and alert, GCS 15, oriented to person, place, and situation. Cranial nerves II-XII grossly intact. Motor strength 5/5 in all extremities. Sensory grossly intact. Intoxication limits examination but grossly no lateralizing neurologic deficits Psych: Awake, alert, with orientation to person, place , patient is pleasantly intoxicated no signs of depression or agitation Vital Signs: 08/16 23:00 BP 124 / 88; Pulse 74; Resp 18; Temp 98(O); Pulse Ox 98% on R/A; Weight 88.45 kg (R); km8 Height 6 ft. 2 in. (R); Pain 0/10; 08/17 01:00 BP 120 / 85; Pulse 62; Resp 16; Pulse Ox 96% ; jj7 01:30 BP 114 / 84; Pulse 60; Resp 16; Pulse Ox 95% on R/A; km8 02:00 BP 120 / 85; Pulse 62; Resp 16; Pulse Ox 96% on R/A; km8 03:00 BP 110 / 91; Pulse 56; Resp 16; Pulse Ox 98% on R/A; km8 03:30 BP 122 / 80; Pulse 54; Resp 16; Pulse Ox 99% ; km8 04:00 BP 118 / 87; Pulse 56; Resp 16; Pulse Ox 97% on R/A; km8 08/16 23:00 Body Mass Index 25.04 (88.45 kg, 187.96 cm) [facility] 08/16 23:00 Pain Scale: Adult km8 [place] Coma Score: 08/16 23:00 Eye Response: spontaneous(4). Motor Response: obeys commands(6). Verbal Response: km8 oriented(5). Total: 15. MDM: 23:42 Patient medically screened. sp4 08/17 04:14 Differential Diagnosis altered mental status, sepsis, flu. Data reviewed: vital signs, sp4 nurses notes, radiologic studies, CT scan. Consideration of Admission/Observation Escalation of care including admission/observation considered. ED course: CT maxillofacial without IV contrast reported no definite acute fracture, mild thickening of the left maxillary sinus, left periorbital soft tissue swelling, mastoid cells are clear, temporomandibular joints intact, no significant soft tissue abnormalities.. 04:20 ED course: CT head and C-spine at 11:42 PM 08/16/2023 no evidence for acute sp4 intraparenchymal hemorrhage, no evidence for acute bony injury, degenerative changes and disc disease C4-C7 on C-spine CT. . 08/16 23:42 Order name: CT Head C Spine sp4 11/06 23:42 Order name: CT Facial Bones W/O Con sp4 Administered Medications: 08/16 23:59 Drug: Acetaminophen PO 1000 mg PO once Route: PO; jj7 08/17 04:19 Follow up: Response: No adverse reaction km8 08/16 23:59 Drug: Ondansetron PO 4 mg PO once Route: PO; jj7 08/17 04:19 Follow up: Response: No adverse reaction 8 00:00 Drug: Ibuprofen PO 800 mg PO once Route: PO; jj7 04:19 Follow up: Response: No adverse reaction km8 Disposition Summary: 08/17/23 04:17 Discharge Ordered Notes: We advise abstinence from alcohol Location: Home sp4 Problem: new sp4 Symptoms: have improved sp4 Condition: Stable sp4 Diagnosis - Unspecified injury of head, initial encounter sp4 - Left facial hematoma, left periorbital contusion, acute fall, alcohol intoxication, sp4 left facial injury Followup: sp4 - With: Private Physician - When: 7 - 10 days - Reason: Recheck today's complaints Discharge Instructions: - Discharge Summary Sheet sp4 - Head Injury, Adult sp4 Forms: - Patient Portal Instructions sp4 Signatures: Dispatcher [employer] Terri Golden RN RN jj7 Bhargav Esposito MD MD sp4 Kyung Adam RN RN km8
--- NOTE | 2023-08-17 04:18 | ER ---
Nurse's Notes [facility] Name: Jewel Cespedes Age: 57 yrs Sex: Male : 1965 Arrival Date: 08/16/2023 Time: 23:07 Bed 8 Private MD: Diagnosis: Unspecified injury of head, initial encounter;Left facial hematoma, left periorbital contusion, acute fall, alcohol intoxication, left facial injury Presentation: 08/16 23:00 Chief complaint: EMS states: pt fell after drinking and hit concrete; pt has bruising, km8 swelling, and pain to left side of face; pt also reports pain to left shoulder. 23:00 Method Of Arrival: EMS: [facility] km8 23:00 Coronavirus screen: Client denies travel out of the [place] in the last 14 days. At this km8 time, the client does not indicate any symptoms associated with coronavirus-19. Ebola Screen: No symptoms or risks identified at this time. Initial Sepsis Screen: Does the patient meet any 2 criteria? No. Patient's initial sepsis screen is negative. Does the patient have a suspected source of infection? No. Patient's initial sepsis screen is negative. Risk Assessment: Do you want to hurt yourself or someone else? Patient reports no desire to harm self or others. Onset of symptoms. 23:00 Acuity: KAREN 3 km8 Triage Assessment: 23:00 General: Appears in no apparent distress. comfortable, Behavior is calm, cooperative, km8 appropriate for age. EENT: EENT: Eyes left eye swollen. Cardiovascular: Denies chest pain, shortness of breath, Clubbing of nail beds is present Patient's skin is warm and dry. Respiratory: Airway is patent Respiratory effort is even, unlabored, Respiratory pattern is regular, symmetrical. GI: No signs and/or symptoms were reported involving the gastrointestinal system. : No signs and/or symptoms were reported regarding the genitourinary system. Derm: Skin is intact, Skin is dry, Skin is normal, Skin temperature is warm Bruising that is dark purple, on face. Musculoskeletal: No signs and/or symptoms reported regarding the musculoskeletal system. Range of motion: intact in all extremities. 23:00 Pain: Complains of pain in face, left shoulder, and right ribs Pain currently is 0 out km8 of 10 on a pain scale. Pain began suddenly. Neuro: El Agitation-Sedation Scale (RASS): 0 - Alert and Calm Level of Consciousness is awake, alert, obeys commands, Oriented to person, place, situation. Historical: - Allergies: :44 NKA; km8 - Home Meds: :44 Aspirin EC Oral [Active]; Hydrochlorothiazide Oral [Active]; levothyroxine oral km8 [Active]; Metoprolol Tartrate Oral [Active]; Plavix Oral [Active]; Trazodone Oral [Active]; Xanax Oral [Active]; - PMHx: 23:44 Alcoholism; Anxiety; Asthma; Hypertension; Hypothyroidism; Myocardial infarction; km8 Schizophrenia; - Immunization history:: Adult Immunizations unknown. - Social history:: Smoking status: Patient reports the use of cigarette tobacco products, smokes one pack cigarettes per day. Patient uses alcohol, on a daily basis. Patient/guardian denies using street drugs. - Family history:: not pertinent. Screenin:00 [facility] ED Fall Risk Assessment (Adult) History of falling in the last 3 months, km8 including since admission Yes- single mechanical fall (1 pt) Confusion or Disorientation No (0 pts) Intoxicated or Sedated Yes (3 pts) Impaired Gait Yes (1 pt) Mobility Assist Device Used No (0 pt) Altered Elimination No (0 pt) Score/Fall Risk Level 3 or more points = High Risk Oriented to surroundings, Maintained a safe environment, Educated pt \T\ family on fall prevention, incl call for assistance when getting out of bed, Assessed \T\ reinforced patient's understanding of fall precautions, Provided non-skid footwear, Hourly rounding (assess needs \T\ fall precautionary measures) done, Implemented a Fall Risk Plan of Care, Remained w/in arm's length of patient and in sight while toileting, Remained with patient while ambulating. Abuse screen: Denies threats or abuse. Denies injuries from another. Nutritional screening: No deficits noted. Tuberculosis screening: No symptoms or risk factors identified. Assessment: 23:00 General: see triage notes/assesment. 8 08/17 02:23 Reassessment: Patient appears in no apparent distress at this time. No changes from [facility] previously documented assessment. Patient and/or family updated on plan of care and expected duration. Pain level reassessed. Patient is alert, oriented x 3, equal unlabored respirations, skin warm/dry/pink. 04:20 Reassessment: Patient appears in no apparent distress at this time. No changes from [facility] previously documented assessment. Patient and/or family updated on plan of care and expected duration. Pain level reassessed. Patient is alert, oriented x 3, equal unlabored respirations, skin warm/dry/pink. Vital Signs: 08/16 23:00 BP 124 / 88; Pulse 74; Resp 18; Temp 98(O); Pulse Ox 98% on R/A; Weight 88.45 kg (R); km8 Height 6 ft. 2 in. (R); Pain 0/10; 08/17 01:00 BP 120 / 85; Pulse 62; Resp 16; Pulse Ox 96% ; jj7 01:30 BP 114 / 84; Pulse 60; Resp 16; Pulse Ox 95% on R/A; km8 02:00 BP 120 / 85; Pulse 62; Resp 16; Pulse Ox 96% on R/A; km8 03:00 BP 110 / 91; Pulse 56; Resp 16; Pulse Ox 98% on R/A; km8 03:30 BP 122 / 80; Pulse 54; Resp 16; Pulse Ox 99% ; km8 04:00 BP 118 / 87; Pulse 56; Resp 16; Pulse Ox 97% on R/A; km8 08/16 23:00 Body Mass Index 25.04 (88.45 kg, 187.96 cm) [facility] 08/16 23:00 Pain Scale: Adult 8 [place] Coma Score: 08/16 23:00 Eye Response: spontaneous(4). Motor Response: obeys commands(6). Verbal Response: km8 oriented(5). Total: 15. ED Course: 23:00 Arm band placed on right wrist. km8 23:00 Patient has correct armband on for positive identification. Bed in low position. Call km light in reach. Side rails up X2. Client placed on continuous cardiac and pulse oximetry monitoring. NIBP monitoring applied. Door closed. Noise minimized. Lights dimmed. Warm blanket given. 23:00 Patient maintains SpO2 saturation greater than 95% on room air. km8 23:41 Patient arrived in ED. km8 23:41 Kyung Adam RN is Primary Nurse. km8 23:41 Bhargav Esposito MD is Attending Physician. sp4 23:44 Triage completed. km8 08/17 01:29 CT Head C Spine In Process Unspecified. EDMS 01:29 CT Facial Bones W/O Con In Process Unspecified. EDMS 04:19 Provided Education on: d/c teaching. km8 04:19 No provider procedures requiring assistance completed. km8 04:19 Patient did not have IV access during this emergency room visit. km8 Administered Medications: 08/16 23:59 Drug: Acetaminophen PO 1000 mg PO once Route: PO; jj7 08/17 04:19 Follow up: Response: No adverse reaction km8 08/16 23:59 Drug: Ondansetron PO 4 mg PO once Route: PO; jj7 08/17 04:19 Follow up: Response: No adverse reaction km8 00:00 Drug: Ibuprofen PO 800 mg PO once Route: PO; jj7 04:19 Follow up: Response: No adverse reaction km8 Medication: 04:19 VIS not applicable for this client. km8 Outcome: 04:17 Discharge ordered by . sp4 04:27 Discharged to home ambulatory, km8 04:27 Condition: good 04:27 Discharge instructions given to patient, Instructed on discharge instructions, Demonstrated understanding of instructions, 04:27 Patient left the ED. km8 Signatures: Dispatcher [employer] Terri Golden RN RN jj7 Bhargav Esposito MD MD sp4 Kyung Adam RN RN km8 Corrections: (The following items were deleted from the chart) 08/16 23:50 23:44 General: Appears in no apparent distress. comfortable, Behavior is calm, km8 cooperative, appropriate for age, km8 23:50 23:44 Pain: Complains of pain in face, left shoulder, and right ribs Pain currently is km8 0 out of 10 on a pain scale. Pain began suddenly, km8 23:50 23:44 Neuro: El Agitation-Sedation Scale (RASS): 0 - Alert and Calm Level of km8 Consciousness is awake, alert, obeys commands, Oriented to person, place, situation, km8 23:50 23:44 Cardiovascular: Denies chest pain, shortness of breath, Clubbing of nail beds is km8 present Patient's skin is warm and dry. km8 23:50 23:44 Respiratory: Airway is patent Respiratory effort is even, unlabored, Respiratory km8 pattern is regular, symmetrical, :44 GI: No signs and/or symptoms were reported involving the gastrointestinal system. km8 8 23:44 : No signs and/or symptoms were reported regarding the genitourinary system. km88 :44 Derm: Skin is intact, Skin is dry, Skin is normal, Skin temperature is warm km8 Bruising that is dark purple, on face 8 :44 Musculoskeletal: No signs and/or symptoms reported regarding the musculoskeletal km8 system. Range of motion: intact in all extremities, :44 EENT: Eyes left eye swollen. EENT: Eyes left eye swollen. km8 8
[2023-08-17 04:40] VITALS: BP 118/87; O2SAT 97
--- NOTE | 2023-08-18 15:18 | RAD REPORT ---
EXAM DESCRIPTION: CT - Facial Bones W/ Mpr - 08/17/2023 6:40 am CLINICAL HISTORY: Head injury COMPARISON: None. TECHNIQUE: CT MAXILLOFACIAL WITHOUT IV CONTRAST on 08/16/2023 11:42 PM DIE TROUBLE SHOOTER This exam was performed according to our departmental dose-optimization program, which includes autom ated exposure control, adjustment of the mA and/or kV according to patient size and/or use of iterati ve reconstruction technique. FINDINGS: There is no acute fracture. There is mild thickening of the left maxillary sinus. There is left periorbital soft tissue swelling. Mastoid air cells are clear. Temporomandibular joints are int act. There are no significant soft tissue abnormalities. IMPRESSION: No definite acute fracture. Electronically signed by: Werner Pride MD 08/17/2023 03:27 AM DIE TROUBLE SHOOTER Due to temporary technical issues with the PACS/Fluency reporting system, reports are being signed by the in house radiologists without review as a courtesy to insure prompt reporting. The interpreting radiologist is fully responsible for the content of the report.
--- NOTE | 2023-08-18 15:52 | RAD REPORT ---
EXAM DESCRIPTION: CT - Head C Spine Mpr Wo Con - 08/17/2023 6:41 am CLINICAL HISTORY: 57 years, Male, head injury COMPARISON: None. FINDINGS: Multiple transaxial tomograms of the brain were obtained from the base of the skull to th e vertex without contrast. Multiple axial CT images through the cervical spine were obtained at 2 mm slice thickness at 2 mm int erval reconstruction. In addition 2-D multiplanar reformats and the sagittal coronal plane were perfo rmed and reviewed. An individualized dose optimization technique, Automated Exposure Control, was utilized for the perfo rmed procedure. CT head: Brain parenchyma as well as the hanson and white matter differentiation demonstrate to be unre markable. Minimal punctate areas of calcifications bilateral basal ganglia. There is no evidence for acute intraparenchymal hemorrhage. There is midline shift and/or mass effect. No focal areas of hypod ensities. Lateral ventricles and cisterns displace normal appearance. No intra or extra-axial fluid collections are identified. The calvarium is intact with no evidence for acute bony injuries. Parana avinash sinuses and orbits demonstrate to be clear. CT C-spine: The alignment, vertebral body heights, and disc spaces are normal. There is anatomical va riance of incomplete fusion of the anterior arch of C1. There is no evidence of fracture or subluxati on. There is degenerative disc disease with anterior and posterior osteophyte complex at C4/C5, C5/ C6 and C6/C7. There is no evidence for significant spinal canal narrowing and/or stenosis. The uncove rtebral joints demonstrate unremarkable. There is no prevertebral soft tissue swelling. Sagittal co concepción reformatted images demonstrate no subluxation or bony abnormalities. IMPRESSION: No evidence for acute intraparenchymal hemorrhage. No evidence for acute bony injuries. Degenerative disc disease at C4-C7. Electronically signed by: Hank Holm MD 08/17/2023 03:28 AM MINE ENGINEERING SUPERINTENDENT Due to temporary technical issues with the PACS/Fluency reporting system, reports are being signed by the in house radiologists without review as a courtesy to insure prompt reporting. The interpreting radiologist is fully responsible for the content of the report.
== END 2023-08-17 04:27 | disposition home or self-care (01) ==
LOC: ER 23:07
DX: S05.12XA Contusion of eyeball and orbital tissues, left eye, initial encounter (principal); F10.229 Alcohol dependence with intoxication, unspecified; W18.30XA Fall on same level, unspecified, initial encounter; I10 Essential (primary) hypertension; I25.2 Old myocardial infarction; F20.9 Schizophrenia, unspecified; F17.210 Nicotine dependence, cigarettes, uncomplicated; Z79.01 Long term (current) use of anticoagulants; Z79.82 Long term (current) use of aspirin
CPT/HCPCS: 70450; 70486; 72125; 76377; 99284